=== PATIENT | female | born 1975 | race Caucasian/White ===

== ENCOUNTER 2016-06-24 21:23 | Emergency (ER) | payer MEDICAID, MEDICARE, OTHER ==
[~2016-06-24 21:23] MED LIST: MEDR4PAK3 PO; SYNT25TA PO; TRIA50 PO
[2016-06-24 21:25] VITALS: BP 167/94; PULSE 86; RESP 16; TEMP 98.2; O2SAT 100
[2016-06-25] MEDS ORDERED: oxyCODONE/ACETAMINOPHEN 5 MG/325 MG TAB PO ONE (00:45)
[2016-06-25] MEDS ORDERED: LIDOCAINE HCL 1% 50 ML VIAL INFIL ONE (00:45)
--- NOTE | 2016-06-25 01:11 | PD ---
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 She says it started two days ago. At first, she thought it was her ventral., Which she says is irregular and sometimes causes her pain, however then she noticed there was a lump there and thought that maybe she saw some drainage. She says she tried soaking in the bathtub, but this did not help. She denies any abdominal pain, nausea vomiting, fevers. PFSH Past Medical History High Cholesterol: Yes Diabetes: Yes Patient Takes Glucophage: No Diminished Hearing: No Gout: Yes Hypertension: Yes Thyroid Disease: Yes Tetanus Vaccination: > 5 Years Influenza Vaccination: No ?: Not LMP: 04--17 : 3 Para: 3 Miscarriage: 0 Social History Alcohol Use: No Tobacco Use: No Substance Use: No Allergies-Medications (Allergen,Severity, Reaction): Coded Allergies: No Known Allergies (Verified , 06/25/16) Reported Meds & Prescriptions Reported Meds & Active Scripts Active Clindamycin (Clindamycin HCl) 300 Mg Cap 600 Mg PO Q8H 7 Days Reported Meloxicam 15 Mg Tab 15 Mg PO DAILY Jardiance (Empagliflozin) 10 Mg Tab 10 Mg PO DAILY Triamterene-Hydrochlorothiazide 75-50 Mg Tab 1 Tab PO DAILY Rosuvastatin (Rosuvastatin Calcium) 10 Mg Tab 10 Mg PO HS Glipizide 5 Mg Tab 5 Mg PO BIDAC Take 30 minutes before a meal Prednisone 10 Mg Tab 10 Mg PO DAILY Bupropion HCl ER 24 HR (Bupropion HCl) 150 Mg Tab 150 Mg PO DAILY Losartan (Losartan Potassium) 25 Mg Tab 25 Mg PO DAILY Gabapentin 300 Mg Cap 300 Mg PO BID Synthroid (Levothyroxine Sodium) 25 Mcg Tab Unknown Dose PO DAILY Review of Systems Except as stated in HPI: all other systems reviewed are Neg General / Constitutional: No: Fever, Chills HENT: No: Headaches Cardiovascular: No: Chest Pain or Discomfort Respiratory: No: Shortness of Breath Gastrointestinal: No: Nausea, Vomiting, Abdominal Pain Genitourinary: Positive: Vaginal Bleeding, No: Dysuria Skin: No Rash, No Change in Pigmentation Physical Exam Narrative GENERAL: Awake and alert, in no acute distress. SKIN: Focused skin assessment warm/dry. HEAD: Atraumatic. Normocephalic. EYES: Pupils equal and round. No scleral icterus. ENT: No nasal bleeding or discharge. Mucous membranes pink and moist. NECK: Trachea midline. No JVD. CARDIOVASCULAR: Regular rate and rhythm. No murmur appreciated. RESPIRATORY: No accessory muscle use. Clear to auscultation. Breath sounds equal bilaterally. GASTROINTESTINAL: Abdomen soft, non-tender, nondistended. Hepatic and splenic margins not palpable. : 3cm fluctuant abscess on right posterior labial area, consistent with bartholin cyst. NEUROLOGICAL: Awake and alert. No obvious cranial nerve deficits. Motor grossly within normal limits. Normal speech. Data Data Last Documented VS Vital Signs Date Time Temp Pulse Resp B/P Pulse Ox O2 Delivery O2 Flow Rate FiO2 06/25/16 00:47 20 06/24/16 21:25 98.2 86 167/94 100 Room Air Orders Oxycodone-Acetamin 5-325 Mg (Percocet (06/25/16 00:45) Lidocaine 1% Inj (50 Ml) (Xylocaine 1% I (06/25/16 00:45) MDM Medical Decision Making Medical Screen Exam Complete: Yes Emergency Medical Condition: Yes Medical Record Reviewed: Yes Differential Diagnosis Bartholin's cyst versus abscess versus ingrown hair Narrative Course Patient is a 41-year-old female who comes in complaining of a pain and swelling to her vaginal area. Exam shows Bartholin Cyst. Incision and drainage performed, Word's catheter inserted. Patient advised to follow up with cell tuber machine. Discharged with prescription for clindamycin. Advised to return to the ED as needed for any worsening symptoms. Procedures Procedure Narrative INCISION AND DRAINAGE OF ABSCESS: The area was prepped and was sterilely draped. A subcutaneous wheal of 1 % Xylocaine with a total number 8 mL was used to anesthetize the area properly. A number 11 scalpel was used to make a 0.5 -cm incision across the area of the abscess. The abscess was drained, complex loculations were broken down, and irrigated with normal saline. Wards catheter was placed in the wound. Advised follow-up with [facility]. Diagnosis Primary Impression: Bartholin cyst Patient Instructions: Bartholin Cyst (ED), General Instructions Additional Instructions: Follow up with cell tuber machine. Take all of your antibiotic. Return to the ED as needed for any worsening symptoms. Scripts Clindamycin 300 Mg Aud121 Mg PO Q8H 7 Days Ref 0 Prov:Nette Baumann MD 06/25/16 Disposition: 01 DISCHARGE HOME Condition: Stable Nette Baumann MD June 25, 2016 01:11
[2016-06-25] MEDS ORDERED: PRED10 PO (01:44)
[2016-06-25] MEDS ORDERED: ROSU1TAB6 PO (01:44)
[2016-06-25] MEDS ORDERED: GLIP5TAB8 PO (01:44)
[2016-06-25] MEDS ORDERED: LOSA25TA PO (01:44)
[2016-06-25] MEDS ORDERED: TRIA1TAB5 PO (01:44)
[2016-06-25] MEDS ORDERED: EMPA1TAB PO (01:44)
[2016-06-25] MEDS ORDERED: BUPR150T3 PO (01:44)
[2016-06-25] MEDS ORDERED: GABA300C5 PO (01:44)
[2016-06-25] MEDS ORDERED: MELO-1 PO (01:44)
[2016-06-25] MEDS ORDERED: CLIN1CAP6 PO (02:12)
== END 2016-06-25 03:37 | disposition home or self-care (01) ==
LOC: NEPC 21:23
DX: N75.0 Cyst of Bartholin's gland (principal)
CPT/HCPCS: 10061

== ENCOUNTER 2017-05-04 00:05 | Emergency (ER) | payer MEDICARE, OTHER ==
[~2017-05-04] VITALS: Ht 162.6 cm; Wt 112.0 kg
[~2017-05-04 00:05] MED LIST changes: +BUPR150T3 PO; +CLIN300C5 PO; +EMPA1TAB PO; +GABA300C5 PO; +GLIP5TAB8 PO; +LOSA25TA PO; -MEDR4PAK3 PO; +MELO15TA20 PO; +PRED10 PO; +ROSU1TAB6 PO; +TRIA1TAB5 PO; -TRIA50 PO
[2017-05-04 00:32] VITALS: BP 109/60; PULSE 111; RESP 16; TEMP 97.8; O2SAT 98
[2017-05-05] MEDS ORDERED: INSULIN ASPART SUPPLEMENTAL SCALE ONE (15:35)
== END 2017-05-04 04:49 | disposition left against medical advice (07) ==
LOC: NED 00:05
DX: R11.10 Vomiting, unspecified (principal); Z53.21 Procedure and treatment not carried out due to patient leaving prior to being seen by health care provider
CPT/HCPCS: 99281; J1815

== ENCOUNTER 2017-05-04 13:26 | Inpatient (IN) | payer MEDICARE, OTHER ==
[~2017-05-04] VITALS: Ht 162.6 cm; Wt 121.1 kg
[2017-05-04 13:41] VITALS: BP 134/81; PULSE 116; RESP 18; TEMP 98.1; O2SAT 96
[2017-05-04] MEDS ORDERED: SODIUM CHLOR 0.9% 1000 ML INJ 1,000 ML IV SCH (13:49)
--- NOTE | 2017-05-04 13:55 | PD ---
HPI Chief Complaint: GI Complaint Time Seen by Provider: 13:41 Travel History International Travel<30 days: No Contact w/Intl Traveler<30days: No Traveled to known affect area: No History of Present Illness HPI 42 YO F with PMH of DM, HTN presents to the ED via EMS for evaluation of ~24 hour history of N/V and "black stools." Symptoms onset suddenly. She states that she has chest pain and abdominal pain that she relates to retching and vomiting. She endorses chills. She denies palpitations, shortness of breath, dysuria, back pain. She states that she's been unable to take her daily medications secondary to nausea and vomiting. She states that she was prescribed Clindamycin for a skin infection recently, but only took a few doses. She denies frequent NSAID or aspirin use. She denies drinking alcohol. She denies sick contacts. She's never had a colonoscopy or endoscopy. PFSH Past Medical History High Cholesterol: Yes Diabetes: Yes Patient Takes Glucophage: Yes Diminished Hearing: No Gout: Yes Hypertension: Yes Thyroid Disease: Yes ?: Unknown LMP: march 2017 : 3 Para: 3 Miscarriage: 0 Tubal Ligation: Yes Past Surgical History Surgical History: No Previous Surgery Social History Alcohol Use: No Tobacco Use: No Substance Use: No Allergies-Medications (Allergen,Severity, Reaction): Coded Allergies: No Known Allergies (Verified Allergy, Unknown, 05/04/17) Reported Meds & Prescriptions Reported Meds & Active Scripts Active Reported Triamterene-Hydrochlorothiazide 75-50 Mg Tab 1 Tab PO DAILY Rosuvastatin (Rosuvastatin Calcium) 10 Mg Tab 20 Mg PO HS Glipizide 5 Mg Tab 10 Mg PO BIDAC Take 30 minutes before a meal Prednisone 10 Mg Tab 10 Mg PO DAILY Losartan (Losartan Potassium) 25 Mg Tab 50 Mg PO DAILY Synthroid (Levothyroxine Sodium) 25 Mcg Tab 225 Mcg PO DAILY Review of Systems Except as stated in HPI: all other systems reviewed are Neg Physical Exam Narrative GENERAL: Well-nourished, well-developed obese white female in no acute distress. SKIN: Focused skin assessment warm/dry. Tender edema over the left lip. Diffuse psoriatic changes. HEAD: Normocephalic. EYES: No scleral icterus. No injection or drainage. NECK: Supple, trachea midline. No JVD or lymphadenopathy. CARDIOVASCULAR: Regular rate and rhythm without murmurs, gallops, or rubs. RESPIRATORY: Breath sounds equal bilaterally. No accessory muscle use. GASTROINTESTINAL: Abdomen soft, diffusely, mildly tender, nondistended. Menchaca sign negative. Active bowel sounds. RECTAL EXAM: No masses or tenderness, stool is melanotic. Guaiac positive. MUSCULOSKELETAL: No cyanosis, or edema. BACK: Nontender without obvious deformity. No CVA tenderness. Data Data Last Documented VS Vital Signs Date Time Temp Pulse Resp B/P (MAP) Pulse Ox O2 Delivery O2 Flow Rate FiO2 05/04/17 13:41 98.1 116 18 134/81 (98) 96 Orders Orders Complete Blood Count With Diff (05/04/17 13:49) Comprehensive Metabolic Panel (05/04/17 13:49) Lipase (05/04/17 13:49) Prothrombin Time / Inr (Pt) (05/04/17 13:49) Act Partial Throm Time (Ptt) (05/04/17 13:49) Urinalysis - C+S If Indicated (05/04/17 13:49) Iv Access Insert/Monitor (05/04/17 13:49) Ecg Monitoring (05/04/17 13:49) Oximetry (05/04/17 13:49) Ondansetron Inj (Zofran Inj) (05/04/17 14:00) Sodium Chlor 0.9% 1000 Ml Inj (Ns 1000 M (05/04/17 13:49) Sodium Chloride 0.9% Flush (Ns Flush) (05/04/17 14:00) Ed Urine Pregnancytest Poc (05/04/17 13:49) Type And Screen (05/04/17 14:04) Sodium Chloride 0.9... W/Pantoprazole In (05/04/17 14:04) Sodium Chloride 0.9... W/Pantoprazole In (05/04/17 14:04) Lactic Acid (05/04/17 15:49) Ct Abd/Pel W Iv Contrast(Rout) (05/04/17 15:49) Sodium Chlor 0.9% 1000 Ml Inj (Ns 1000 M (05/04/17 16:00) Vancomycin Inj (Vancomycin Inj) (05/04/17 16:00) Piperacil-Tazo 4.5 Gm Premix (Zosyn 4.5 (05/04/17 16:00) Insulin Human Regular Inj (Novolin R Inj (05/04/17 16:00) Consult Gastroenterology (05/04/17 ) Admit Order (Ed Use Only) (05/04/17 16:10) Admit To Inpatient (05/04/17 ) Inpatient Certification (05/04/17 ) Vital Signs (Adult) ROLANDO.Q4H (05/04/17 16:11) Scd Bilateral/Knee High ROLANDO.QSHIFT (05/04/17 16:11) Complete Blood Count With Diff (05/05/17 06:00) Basic Metabolic Panel (Bmp) (05/05/17 06:00) Insulin Aspart Supplemtl Scale (Novolog (05/04/17 17:00) Labs Laboratory Tests Test 05/04/17 14:05 05/04/17 16:00 White Blood Count 21.1 TH/MM3 Red Blood Count 3.76 MIL/MM3 Hemoglobin 11.2 GM/DL Hematocrit 33.9 % Mean Corpuscular Volume 90.3 FL Mean Corpuscular Hemoglobin 29.8 PG Mean Corpuscular Hemoglobin Concent 33.0 % Red Cell Distribution Width 16.7 % Platelet Count 191 TH/MM3 Mean Platelet Volume 10.8 FL Neutrophils (%) (Auto) 84.5 % Lymphocytes (%) (Auto) 9.4 % Monocytes (%) (Auto) 5.4 % Eosinophils (%) (Auto) 0.5 % Basophils (%) (Auto) 0.2 % Neutrophils # (Auto) 17.8 TH/MM3 Lymphocytes # (Auto) 2.0 TH/MM3 Monocytes # (Auto) 1.1 TH/MM3 Eosinophils # (Auto) 0.1 TH/MM3 Basophils # (Auto) 0.0 TH/MM3 CBC Comment DIFF FINAL Differential Comment Prothrombin Time 11.7 SEC Prothromb Time International Ratio 1.2 RATIO Activated Partial Thromboplast Time 18.4 SEC Urine Color LIGHT-YELLOW Urine Turbidity CLEAR Urine pH 5.5 Urine Specific [place] 1.033 Urine Protein NEG mg/dL Urine Glucose (UA) 1000 mg/dL Urine Ketones 10 mg/dL Urine Occult Blood NEG Urine Nitrite NEG Urine Bilirubin NEG Urine Urobilinogen LESS THAN 2.0 MG/DL Urine Leukocyte Esterase NEG Urine RBC 1 /hpf Urine WBC 1 /hpf Urine Squamous Epithelial Cells <1 /hpf Microscopic Urinalysis Comment CULT NOT INDICATED Blood Urea Nitrogen 46 MG/DL Creatinine 1.33 MG/DL Random Glucose 527 MG/DL Total Protein 7.2 GM/DL Albumin 2.7 GM/DL Calcium Level 9.2 MG/DL Alkaline Phosphatase 76 U/L Aspartate Amino Transf (AST/SGOT) 69 U/L Alanine Aminotransferase (ALT/SGPT) 52 U/L Total Bilirubin 1.5 MG/DL Sodium Level 134 MEQ/L Potassium Level 4.8 MEQ/L Chloride Level 96 MEQ/L Carbon Dioxide Level 24.6 MEQ/L Anion Gap 13 MEQ/L Estimat Glomerular Filtration Rate 44 ML/MIN Lipase 237 U/L Lactic Acid Level 3.1 mmol/L [facility] Medical Decision Making Medical Screen Exam Complete: Yes Emergency Medical Condition: Yes Differential Diagnosis GI bleed versus anemia versus metabolic derangement versus infectious diarrhea versus diverticulitis versus other Narrative Course 42 YO F with PMH of DM, HTN presents to the ED via EMS for evaluation of ~24 hour history of N/V and "black stools." She endorses chills. Endorses chest and abdominal pain which she relates to retching and vomiting. She has been unable to take her daily medications 2/2 N/V. She denies frequent NSAID or aspirin use. She denies drinking alcohol. She denies sick contacts. She's never had a colonoscopy or endoscopy. Temp 98 1. Pulse 116, BP 134/81 on presentation. On exam this is an obese white female in no acute distress. There tender edema and erythema of the left side of the upper lip. There are psoriatic changes over the entire skin surface. Abdomen is soft, diffusely tender. No hepatosplenomegaly noted. Menchaca sign negative. Guaiac positive on rectal exam. IV was established. Patient was administered 4 mg morphine, 4 mg Zofran, 1 L normal saline. IV pantoprazole bolus and drip initiated. CBC: WBC 21.1. Neutrophil predominant. Hemoglobin 11.2. Patient's on chronic steroid suppression therapy for her psoriasis. INR: 1.1. BMP: BUN 46, creatinine 1.33. Glucose 527. LFTs: Bilirubin 1.5. AST 69, ALT 52. Lipase: 237 Lactic acid: 3.1. UA: No culture indicated. Patient was administered a second liter of normal saline. IV Zosyn and vancomycin was initiated. She was administered [address] abdomen ordered and pending. I discussed the results of the workup with the patient. She is agreeable to admission. GI consult was placed. I spoke with Dr. Krueger who agrees to accept the patient to the medicine service. Please see medicine notes for disposition. Sepsis Criteria SIRS Criteria (2 or more): Heart rate over 90, WBC > 01973, < 4000 or > 10% bands Severe Sepsis (+one): Lactate >2 Mayte Figueroa May 04, 2017 13:55
[2017-05-04] MEDS ORDERED: ONDANSETRON HCL 4 MG/2 ML VIAL IVP ONE (14:00)
[2017-05-04] MEDS ORDERED: SODIUM CHLORIDE 0.9% FLUSH 10 ML FLUSH IV FLUSH PRN (14:00)
[2017-05-04] MEDS ORDERED: PANTOPRAZOLE INJ 80 MG in SODIUM CHLORIDE 0.9% INJ 35 ML IV ONE (14:04)
[2017-05-04] MEDS: PANTOPRAZOLE INJ 80 MG in SODIUM CHLORIDE 0.9% INJ 100 ML IV SCH ×2 (14:15→14:54)
[2017-05-04 15:09] LABS: AUTOMATED NEUTROPHIL # 17.8 TH/MM3 (1.8-7.7); BASOPHIL % 0.2 % (0.0-2.0); EOSINOPHIL # 0.1 TH/MM3 (0-0.4); EOSINOPHIL % 0.5 % (0.0-4.0); HEMATOCRIT 33.9 % (35.0-46.0); HEMOGLOBIN 11.2 GM/DL (11.6-15.3); LYMPH % 9.4 % (9.0-44.0); MEAN CELL VOLUME 90.3 FL (80.0-100.0); MEAN CORPUSCULAR HEMOGLOBIN 29.8 PG (27.0-34.0); MEAN PLATELET VOLUME 10.8 FL (7.0-11.0); MONO % 5.4 % (0.0-8.0); MONOCYTE # 1.1 TH/MM3 (0-0.9); NEUT % 84.5 % (16.0-70.0); PLATELET COUNT 191 TH/MM3 (150-450); RED BLOOD COUNT 3.76 MIL/MM3 (4.00-5.30); RED CELL DISTRIBUTION WIDTH 16.7 % (11.6-17.2); WHITE BLOOD COUNT 21.1 TH/MM3 (4.0-11.0)
[2017-05-04 15:19] LABS: INTERNATIONAL NORMALIZED RATIO 1.2 RATIO; PROTHROMBIN TIME - PATIENT 11.7 SEC (9.8-11.6)
[2017-05-04 15:21] LABS: BILIRUBIN, URINE NEG (NEG); BLOOD, URINE NEG (NEG); GLUCOSE,URINE 1000 mg/dL (NEG); KETONE, URINE 10 mg/dL (NEG); NITRITE,URINE NEG (NEG); PH, URINE 5.5 (5.0-8.5); SQUAMOUS EPITHELIAL CELL URINE <1 /hpf (0-5); URINE COLOR LIGHT-YELLOW (YELLW/STRAW); URINE LEUKOCYTE ESTERASE NEG (NEG)
[2017-05-04 15:42] LABS: ALBUMIN 2.7 GM/DL (3.4-5.0); ALKALINE PHOSPHATASE 76 U/L (45-117); ALT (GPT) 52 U/L (10-53); AST (GOT) 69 U/L (15-37); BICARBONATE 24.6 MEQ/L (21.0-32.0); BLOOD UREA NITROGEN 46 MG/DL (7-18); CALCIUM 9.2 MG/DL (8.5-10.1); CHLORIDE 96 MEQ/L (98-107); CREATININE 1.33 MG/DL (0.50-1.00); GLOMERULAR FILTRATION RATE 44 ML/MIN (>89); SODIUM (NA) 134 MEQ/L (136-145); TOTAL BILIRUBIN ADULT 1.5 MG/DL (0.2-1.0); TOTAL PROTEIN 7.2 GM/DL (6.4-8.2)
[2017-05-04 15:57] LABS: GLUCOSE,RANDOM 527 MG/DL (74-106)
[2017-05-04] MEDS ORDERED: PIPERACIL-TAZO 4.5 GM PREMIX 100 ML IV ONE (16:00)
[2017-05-04] MEDS ORDERED: INSULIN HUMAN REGULAR 1,000 UNITS/10 ML VIAL IV PUSH ONE (16:00)
[2017-05-04] MEDS ORDERED: VANCOMYCIN INJ 1,000 MG in SODIUM CHLOR 0.9% 250 ML INJ 250 ML IV ONE (16:00)
[2017-05-04] MEDS ORDERED: SODIUM CHLOR 0.9% 1000 ML INJ 1,000 ML IV ONE (16:00)
--- NOTE | 2017-05-04 16:18 | HHI.HP ---
HPI Service [facility] Hospitalists Primary Care Physician Erinn Pride M.D. Admission Diagnosis GI bleed, leukocytosis, hyperglycemia, MARIA DEL ROSARIO Chief Complaint: N/V, melena Travel History International Travel<30 Days: No Contact w/Intl Traveler <30 Da: No Traveled to Known Affected Are: No History of Present Illness Mrs. Kramer is a pleasant 42 y/o WF with Diabetes mellitus, HTN, hyperlipidemia and hypothyroidism. She presented to the ED at [facility] on 05/04/17 with complaints of N/V and black tarry stools for the last few days. She reported that she has been unable to keep much of any food or fluids down for the last few days. She has had subjective fevers and chills. She has some mid to upper abdominal "soreness" which she relates to retching for the last few days. Her last episode of vomiting was this morning prior to coming to the ED and she states that it was dark red. Denies any previous similar episodes. She denies any alcohol or tobacco. Pt takes Prednisone 10mg po daily for RA and last took it . She also noted that she had been on Meloxicam 15mg once daily for her RA which was started about one month which she stopped about 1 week ago. She was seen at [facility] on 04/29/17 with a possible allergic reaction to something (not sure what it was) and had swelling on the left side of her lip/ face and was prescribed a prednisone taper and was also prescribed Keflex and Naprosyn on 04/29/17 for possible cellulitis and states that she took the Naprosyn until the N/V started. She was noted to be guaiac positive in the ED. She denies any reflux, dysphagia, constipation, diarrhea, chest pain, SOB, palpitations, dizziness or weakness. Review of Systems Constitutional: DENIES: Fever, Chills Eyes: DENIES: Vision loss Ears, nose, mouth, throat: DENIES: Hearing loss Respiratory: DENIES: Apneas, Shortness of breath Cardiovascular: DENIES: Chest pain, Palpitations, Dyspnea on Exertion, Lower Extremity Edema Gastrointestinal: COMPLAINS OF: Abdominal pain, Black stools, Nausea, Vomiting , DENIES: Diarrhea, GERD, Reflux, Difficulty Swallowing Genitourinary: DENIES: Urinary frequency, Urgency, Dysuria Musculoskeletal: DENIES: Back pain, Neck pain Integumentary: DENIES: Rash Neurologic: DENIES: Headache Psychiatric: DENIES: Confusion Past Family Social History Past Medical History Diabetes mellitus, type 2 HTN Hyperlipidemia Hypothyroidism Rheumatoid arthritis per the pt Psoriasis Past Surgical History Tubal ligation Reported Medications -Triamterene-Hydrochlorothiazide 75-50 Mg Tab PO DAILY -Glipizide 10 Mg PO BIDAC -Prednisone 10 Mg PO DAILY -Losartan 50 Mg PO DAILY -Synthroid 225 Mcg PO DAILY -Rosuvastatin 20 Mg PO HS Keflex 500Mg PO TID x 10 days, Naprosyn, and Prednisone taper (prescribed ) Allergies: Coded Allergies: No Known Allergies (Verified Allergy, Unknown, 05/04/17) Family History Mother with hx of brain tumor Father with hx of lung cancer related to asbestos per the pt Social History Denies any alcohol, tobacco or illicit drug use Physical Exam Vital Signs Vital Signs Date Time Temp Pulse Resp B/P (MAP) Pulse Ox O2 Delivery O2 Flow Rate FiO2 05/04/17 13:41 98.1 116 18 134/81 (98) 96 Physical Exam GENERAL: This is a well-nourished, well-developed patient, in no apparent distress. SKIN: Psoriatic skin changes on extremities HEENT: Atraumatic. Normocephalic. No temporal or scalp tenderness. No scleral icterus. Airway patent. NECK: Trachea midline, supple, nontender. CARDIO: Regular, tachy. RESP: CTA bilaterally. No wheezes, rales, or rhonchi. ABD: +BS, soft,mild epigastric tenderness, nondistended. EXT: Extremities without clubbing, cyanosis, or edema. NEURO: Awake and alert. Motor and sensory grossly within normal limits. Normal speech. Laboratory Laboratory Tests Test 05/04/17 14:05 White Blood Count 21.1 Red Blood Count 3.76 Hemoglobin 11.2 Hematocrit 33.9 Mean Corpuscular Volume 90.3 Mean Corpuscular Hemoglobin 29.8 Mean Corpuscular Hemoglobin Concent 33.0 Red Cell Distribution Width 16.7 Platelet Count 191 Mean Platelet Volume 10.8 Neutrophils (%) (Auto) 84.5 Lymphocytes (%) (Auto) 9.4 Monocytes (%) (Auto) 5.4 Eosinophils (%) (Auto) 0.5 Basophils (%) (Auto) 0.2 Neutrophils # (Auto) 17.8 Lymphocytes # (Auto) 2.0 Monocytes # (Auto) 1.1 Eosinophils # (Auto) 0.1 Basophils # (Auto) 0.0 CBC Comment DIFF FINAL Differential Comment Prothrombin Time 11.7 Prothromb Time International Ratio 1.2 Activated Partial Thromboplast Time 18.4 Urine Color LIGHT-YELLOW Urine Turbidity CLEAR Urine pH 5.5 Urine Specific [place] 1.033 Urine Protein NEG Urine Glucose (UA) 1000 Urine Ketones 10 Urine Occult Blood NEG Urine Nitrite NEG Urine Bilirubin NEG Urine Urobilinogen LESS THAN 2.0 Urine Leukocyte Esterase NEG Urine RBC 1 Urine WBC 1 Urine Squamous Epithelial Cells <1 Microscopic Urinalysis Comment CULT NOT INDICATED Blood Urea Nitrogen 46 Creatinine 1.33 Random Glucose 527 Total Protein 7.2 Albumin 2.7 Calcium Level 9.2 Alkaline Phosphatase 76 Aspartate Amino Transf (AST/SGOT) 69 Alanine Aminotransferase (ALT/SGPT) 52 Total Bilirubin 1.5 Sodium Level 134 Potassium Level 4.8 Chloride Level 96 Carbon Dioxide Level 24.6 Anion Gap 13 Estimat Glomerular Filtration Rate 44 Lipase 237 Result Diagram: 05/04/17 1405 05/04/17 1405 Caprini VTE Risk Assessment Caprini VTE Risk Assessment: No/Low Risk (score <= 1) Caprini Risk Assessment Model Point Value = 1 Point Value = 2 Point Value = 3 Point Value = 5 Age 41-60 Minor surgery BMI > 25 kg/m2 Swollen legs Varicose veins or History of unexplained or recurrent spontaneous Oral contraceptives or hormone replacement Sepsis (< 1 month) Serious lung disease, including pneumonia (< 1 month) Abnormal pulmonary function Acute myocardial infarction Congestive heart failure (< 1 month) History of inflammatory bowel disease Medical patient at bed rest Age 61-74 Arthroscopic surgery Major open surgery (> 45 min) Laparoscopic surgery (> 45 min) Malignancy Confined to bed (> 72 hours) Immobilizing plaster cast Central venous access Age >= 75 History of VTE Family history of VTE Factor V Leiden Prothrombin [id number] Lupus anticoagulant Anticardiolipin antibodies Elevated serum homocysteine Heparin-induced thrombocytopenia Other congenital or acquired thrombophilia Stroke (< 1 month) Elective arthroplasty Hip, pelvis, or leg fracture Acute spinal cord injury (< 1 month) Prophylaxis Regimen Total Risk Factor Score Risk Level Prophylaxis Regimen 0-1 Low Early ambulation 2 Moderate Order ONE of the following: *Sequential Compression Device (SCD) *Heparin 5000 units SQ BID 3-4 Higher Order ONE of the following medications: *Heparin 5000 units SQ TID *Enoxaparin/Lovenox 40 mg SQ daily (WT < 150 kg, CrCl > 30 mL/min) *Enoxaparin/Lovenox 30 mg SQ daily (WT < 150 kg, CrCl > 10-29 mL/min) *Enoxaparin/Lovenox 30 mg SQ BID (WT < 150 kg, CrCl > 30 mL/min) AND/OR *Sequential Compression Device (SCD) 5 or more Highest Order ONE of the following medications: *Heparin 5000 units SQ TID (Preferred with Epidurals) *Enoxaparin/Lovenox 40 mg SQ daily (WT < 150 kg, CrCl > 30 mL/min) *Enoxaparin/Lovenox 30 mg SQ daily (WT < 150 kg, CrCl > 10-29 mL/min) *Enoxaparin/Lovenox 30 mg SQ BID (WT < 150 kg, CrCl > 30 mL/min) AND *Sequential Compression Device (SCD) Assessment and Plan Problem List: (1) GI bleed ICD Codes: K92.2 - Gastrointestinal hemorrhage, unspecified Status: Acute Plan: GIB/Hemoccult-positive stool Anemia Nausea/vomiting ?hematemesis - Pt is a 42 y/o WF with diabetes mellitus, HTN, hyperlipidemia and hypothyroidism. - She presented to the ED at [facility] on 05/04/17 with complaints of N/V and black tarry stools for the last few days. She reported that she has been unable to keep much of any food or fluids down for the last few days. She has some mid to upper abdominal "soreness" which she relates to retching for the last few days. Her last episode of vomiting was this morning prior to coming to the ED and she states that it was dark red. - Pt is chronically on Prednisone and was recently taking Meloxicam up until about a week ago and more recently had been taking Naprosyn. - She was noted to be guaiac positive in the ED - Labs in the ED noted Hgb 11.2/Hct 33.9 - Pt was started on Protonix gtt - GI consulted - NPO except meds - Monitor labs closely - Supportive care MARIA DEL ROSARIO Dehydration from poor PO intake - Labs at admission with Cr 1.33/BUN 46, GFR 44 - Pt was given IVF in the ED and she will be continued on IVF - Repeat labs in AM Leukocytosis - Likely reactive - Pt received IVF and Zosyn/Vancomycin in the ED we tomas hold on continuing Abx at this time - Repeat labs in AM Diabetes mellitus, type 2 - Hold OHA - BS at admission significantly elevated at 527 but she has been unable to tolerated po intake and hasn't taken her meds for the last few days - NovoLog SSI HTN - Hold home meds due to MARIA DEL ROSARIO - Clonidine PRN - Monitor Hyperlipidemia - Cont. home meds Hypothyroidism - Cont. home meds (2) MARIA DEL ROSARIO (acute kidney injury) ICD Codes: N17.9 - Acute kidney failure, unspecified Status: Acute (3) Dehydration ICD Codes: E86.0 - Dehydration Status: Acute (4) Nausea & vomiting ICD Codes: R11.2 - Nausea with vomiting, unspecified Status: Acute (5) Diabetes mellitus ICD Codes: E11.9 - Type 2 diabetes mellitus without complications Status: Chronic (6) HTN (hypertension) ICD Codes: I10 - Essential (primary) hypertension Status: Chronic (7) Hyperlipidemia ICD Codes: E78.5 - Hyperlipidemia, unspecified Status: Chronic (8) Hypothyroidism ICD Codes: E03.9 - Hypothyroidism, unspecified Status: Chronic Physician Certification 2 Midnight Certification Type: Admission for Inpatient Services Order for Inpatient Services The services are ordered in accordance with Medicare regulations or non- Medicare payer requirements, as applicable. In the case of services not specified as inpatient-only, they are appropriately provided as inpatient services in accordance with the 2-midnight benchmark. Estimated LOS (days): 2 2 days is the estimated time the patient will need to remain in the hospital, assuming treatment plan goals are met and no additional complications. Post-Hospital Plan: Home Problem Qualifiers (1) Diabetes mellitus: Rachel Pinto May 04, 2017 16:18
[2017-05-04] MEDS ORDERED: GLUCAGON 1 MG/ML VIAL OTHER PRN (16:45)
[2017-05-04] MEDS ORDERED: DEXTROSE 50% IN WATER 50 ML VIAL(D50) IV PUSH PRN (16:45)
[2017-05-04] MEDS ORDERED: ONDANSETRON HCL 4 MG/2 ML VIAL IV PUSH PRN (17:00)
[2017-05-04] MEDS ORDERED: cloNIDine HCL 0.1 MG TAB PO PRN (17:00)
[2017-05-04] MEDS: SODIUM CHLOR 0.9% 1000 ML INJ 1,000 ML IV SCH (17:09)
--- NOTE | 2017-05-04 17:18 | PD ---
Physical Exam Date Seen by Provider: May 04, 2017 Time Seen by Provider: 15:00 Narrative I, Dr. Rae, have reviewed the advance practice practitioner's documentation and am in agreement, met with the patient face to face, made the diagnosis, and the medical decision making was done by me. *My assessment and Findings: Patient seen and evaluated with PA, please see PA' s note for further details. She is here with nausea, vomiting, black stools. Has previous history of diabetes. On exam, has fairly nontender abdomen, mildly distended. The rest of the exam is fairly unremarkable. A rectal exam was done by PA, she is Hemoccult positive. Lab work was done and shows significant leukocytosis of uncertain etiology and concerning for possible underlying sepsis. Patient's lactate was also fairly elevated. She was initiated on IV fluids, IV antibiotics were initiated after cultures were done. Hemoglobin is stable. Her glucose levels were fairly elevated as well and insulin was given in the ER. At this point, plan would be to admit the patient for further evaluation of GI bleed, hyperglycemia, possible sepsis. Case is discussed with hospitalist service for admission. Laboratory Tests Test 05/04/17 14:05 05/04/17 16:00 White Blood Count 21.1 TH/MM3 (4.0-11.0) Red Blood Count 3.76 MIL/MM3 (4.00-5.30) Hemoglobin 11.2 GM/DL (11.6-15.3) Hematocrit 33.9 % (35.0-46.0) Neutrophils (%) (Auto) 84.5 % (16.0-70.0) Neutrophils # (Auto) 17.8 TH/MM3 (1.8-7.7) Monocytes # (Auto) 1.1 TH/MM3 (0-0.9) Prothrombin Time 11.7 SEC (9.8-11.6) Activated Partial Thromboplast Time 18.4 SEC (24.3-30.1) Urine Glucose (UA) 1000 mg/dL (NEG) Urine Ketones 10 mg/dL (NEG) Blood Urea Nitrogen 46 MG/DL (7-18) Creatinine 1.33 MG/DL (0.50-1.00) Random Glucose 527 MG/DL (74-106) Albumin 2.7 GM/DL (3.4-5.0) Aspartate Amino Transf (AST/SGOT) 69 U/L (15-37) Total Bilirubin 1.5 MG/DL (0.2-1.0) Sodium Level 134 MEQ/L (136-145) Chloride Level 96 MEQ/L (98-107) Estimat Glomerular Filtration Rate 44 ML/MIN (>89) Lactic Acid Level 3.1 mmol/L (0.4-2.0) Data Data Last Documented VS Vital Signs Date Time Temp Pulse Resp B/P (MAP) Pulse Ox O2 Delivery O2 Flow Rate FiO2 05/04/17 13:41 98.1 116 18 134/81 (98) 96 Orders Orders Complete Blood Count With Diff (05/04/17 13:49) Comprehensive Metabolic Panel (05/04/17 13:49) Lipase (05/04/17 13:49) Prothrombin Time / Inr (Pt) (05/04/17 13:49) Act Partial Throm Time (Ptt) (05/04/17 13:49) Urinalysis - C+S If Indicated (05/04/17 13:49) Iv Access Insert/Monitor (05/04/17 13:49) Ecg Monitoring (05/04/17 13:49) Oximetry (05/04/17 13:49) Ondansetron Inj (Zofran Inj) (05/04/17 14:00) Sodium Chlor 0.9% 1000 Ml Inj (Ns 1000 M (05/04/17 13:49) Sodium Chloride 0.9% Flush (Ns Flush) (05/04/17 14:00) Ed Urine Pregnancytest Poc (05/04/17 13:49) Type And Screen (05/04/17 14:04) Sodium Chloride 0.9... W/Pantoprazole In (05/04/17 14:04) Sodium Chloride 0.9... W/Pantoprazole In (05/04/17 14:04) Lactic Acid (05/04/17 15:49) Ct Abd/Pel W Iv Contrast(Rout) (05/04/17 15:49) Sodium Chlor 0.9% 1000 Ml Inj (Ns 1000 M (05/04/17 16:00) Vancomycin Inj (Vancomycin Inj) (05/04/17 16:00) Piperacil-Tazo 4.5 Gm Premix (Zosyn 4.5 (05/04/17 16:00) Insulin Human Regular Inj (Novolin R Inj (05/04/17 16:00) Consult Gastroenterology (05/04/17 ) Admit Order (Ed Use Only) (05/04/17 16:10) Admit To Inpatient (05/04/17 ) Inpatient Certification (05/04/17 ) Vital Signs (Adult) ROLANDO.Q4H (05/04/17 16:11) Scd Bilateral/Knee High ROLANDO.QSHIFT (05/04/17 16:11) Complete Blood Count With Diff (05/05/17 06:00) Basic Metabolic Panel (Bmp) (05/05/17 06:00) Insulin Aspart Supplemtl Scale (Novolog (05/04/17 17:00) Labs Laboratory Tests Test 05/04/17 14:05 05/04/17 16:00 White Blood Count 21.1 TH/MM3 Red Blood Count 3.76 MIL/MM3 Hemoglobin 11.2 GM/DL Hematocrit 33.9 % Mean Corpuscular Volume 90.3 FL Mean Corpuscular Hemoglobin 29.8 PG Mean Corpuscular Hemoglobin Concent 33.0 % Red Cell Distribution Width 16.7 % Platelet Count 191 TH/MM3 Mean Platelet Volume 10.8 FL Neutrophils (%) (Auto) 84.5 % Lymphocytes (%) (Auto) 9.4 % Monocytes (%) (Auto) 5.4 % Eosinophils (%) (Auto) 0.5 % Basophils (%) (Auto) 0.2 % Neutrophils # (Auto) 17.8 TH/MM3 Lymphocytes # (Auto) 2.0 TH/MM3 Monocytes # (Auto) 1.1 TH/MM3 Eosinophils # (Auto) 0.1 TH/MM3 Basophils # (Auto) 0.0 TH/MM3 CBC Comment DIFF FINAL Differential Comment Prothrombin Time 11.7 SEC Prothromb Time International Ratio 1.2 RATIO Activated Partial Thromboplast Time 18.4 SEC Urine Color LIGHT-YELLOW Urine Turbidity CLEAR Urine pH 5.5 Urine Specific [place] 1.033 Urine Protein NEG mg/dL Urine Glucose (UA) 1000 mg/dL Urine Ketones 10 mg/dL Urine Occult Blood NEG Urine Nitrite NEG Urine Bilirubin NEG Urine Urobilinogen LESS THAN 2.0 MG/DL Urine Leukocyte Esterase NEG Urine RBC 1 /hpf Urine WBC 1 /hpf Urine Squamous Epithelial Cells <1 /hpf Microscopic Urinalysis Comment CULT NOT INDICATED Blood Urea Nitrogen 46 MG/DL Creatinine 1.33 MG/DL Random Glucose 527 MG/DL Total Protein 7.2 GM/DL Albumin 2.7 GM/DL Calcium Level 9.2 MG/DL Alkaline Phosphatase 76 U/L Aspartate Amino Transf (AST/SGOT) 69 U/L Alanine Aminotransferase (ALT/SGPT) 52 U/L Total Bilirubin 1.5 MG/DL Sodium Level 134 MEQ/L Potassium Level 4.8 MEQ/L Chloride Level 96 MEQ/L Carbon Dioxide Level 24.6 MEQ/L Anion Gap 13 MEQ/L Estimat Glomerular Filtration Rate 44 ML/MIN Lipase 237 U/L Lactic Acid Level 3.1 mmol/L MDM Medical Record Reviewed: Yes Supervised Visit with NINO: Yes Diagnosis Primary Impression: GI bleed Additional Impressions: Diabetes mellitus Dehydration Leukocytosis Admitting Information Admitting Physician Requests: Admit Megan Rae MD May 04, 2017 17:18
[2017-05-04] MEDS ORDERED: IOHEXOL 350 MG/ML 10 ML VIAL (for RAD DIAG) IVCONTRAST ONE (17:29)
--- NOTE | 2017-05-04 17:35 | RADRPT ---
EXAM DATE/TIME: 05/04/2017 17:19 [facility] COMPARISON: No previous studies available for comparison. INDICATIONS : Nausea, vomiting, dark fluid like stool. IV CONTRAST: 80 cc Omnipaque 350 (iohexol) IV ORAL CONTRAST: No oral contrast ingested. RADIATION DOSE: 16.72 CTDIvol (mGy) MEDICAL HISTORY : Hypertension. Gout, psorisis,diabetes SURGICAL HISTORY : Tubal ligation. ENCOUNTER: Initial ACUITY: 1 day PAIN SCALE: 7/10 LOCATION: diffuse abdomen TECHNIQUE: Volumetric scanning of the abdomen and pelvis was performed. Using automated exposure control and ad justment of the mA and/or kV according to patient size, radiation dose was kept as low as reasonably achievable to obtain optimal diagnostic quality images. DICOM format image data is available electro nically for review and comparison. FINDINGS: Lower lungs are clear. The liver is unremarkable Calcified gallstones inflammatory changes around the gallbladder. There is induration around the hea d of the pancreas as well. Findings are suspicious for pancreatitis with or without acute cholecysti tis. Spleen is unremarkable Adrenals appear normal Symmetric renal function out mass Scattered diverticuli descending and sigmoid colon The pelvis there are cystic masses in right adnexal region. Mass measures 2.8 cm. There is no free fluid Review of bone windows reveals degenerative changes in the lumbar spine and both SI joints. CONCLUSION: Mobile gallstones with inflammatory changes around the gallbladder Induration around the pancreas Findings are suspicious for pancreatitis without acute cholecystitis. Joe Beaver MD FACR on May 04, 2017 at 17:28 Board Certified Radiologist. This report was verified electronically.
--- NOTE | 2017-05-04 19:02 | MB ---
cc: Vicki Bailey MD DATE: 05/04/2017 REFERRING PHYSICIAN: Damien Krueger MD REASON FOR CONSULTATION: GI bleed. HISTORY OF PRESENT ILLNESS: Ms. Kramer is a 42-year-old lady with multiple medical problems, came to the emergency room with complaints of nausea, vomiting and black tarry stool for the last few days. The patient stated that she was not able to keep too much fluid or food down for the last few days, did have some fever and chills. She complained of some upper abdominal discomfort. She describes it as a soreness, also some retching. The last episode of vomiting was in the morning and, according to her, was dark red. Never had this kind of issue before. Never had endoscopies, colonoscopies. Again, the patient is on multiple medications for rheumatoid arthritis. Recently, she was advised to discontinue her meloxicam and prednisone. Patient was seen earlier this week in urgent care for possible allergic reaction. She developed some swelling of her left lip and face. She was placed on antibiotics and naproxen. In the emergency room, she was heme positive. PAST MEDICAL HISTORY: Diabetes, hypertension, obesity, hyperlipidemia, hypothyroidism, rheumatoid arthritis, psoriasis. PAST SURGICAL HISTORY: Tubal ligation. MEDICATIONS AT HOME: Glipizide, prednisone, losartan, Synthroid, rosuvastatin, triamterene/hydrochlorothiazide, Keflex, naproxen and prednisone taper. ALLERGIES: NO KNOWN ALLERGIES. FAMILY HISTORY: Mother had brain tumor. Father had lung cancer. SOCIAL HISTORY: Denies any drug use or alcohol use. REVIEW OF SYSTEMS: GENERAL: She denies any current fever and chills, but she says she did have prior to her admission. ENT: No alteration of baseline hearing or visual activity. PULMONARY: Denies any chest pain, shortness of breath. GASTROINTESTINAL: As above. GENITOURINARY: Denies dysuria or hematuria. HEMATOLOGICAL: Denies a history of anemia or bleeding disorder. SKIN: No alteration in skin lesion. NEUROLOGIC: No history of TIA or CVA kind of symptoms. PHYSICAL EXAMINATION: GENERAL: She is sitting in bed in no acute distress, obese. VITAL SIGNS: Pulse 116, temperature 98.1, respirations 18, blood pressure 134/81, pulse oximetry 97. HEENT: PERRLA. NECK: No JVD. No lymphadenopathy. CHEST: Clear to auscultation and palpation. CARDIOVASCULAR: S1, S2. No murmur. ABDOMEN: Soft, obese. Bowel sounds are present. CENTRAL NERVOUS SYSTEM: Alert, oriented x 3. No focal signs identified. SKIN: She has psoriatic skin changes. EXTREMITIES: Her left side of her lip is swollen, red and slightly tender with a small erosion on it. The same on the left earlobe. LABORATORY DATA: Hemoglobin 11.2, white count 21.1, platelets 191. PT, INR normal. Her glucose is 527, BUN 46, creatinine 1.33, total bilirubin 1.5, AST 69, ALT 52, albumin 2.7. The patient had a CT abdomen and pelvis, which showed mobile gallstones with inflammatory changes around the gallbladder, induration around the pancreas, findings suspicious for pancreatitis and possible cholecystitis. IMPRESSION: Ms. Kramer is a very pleasant 42-year-old lady with multiple medical problems, admitted with hematemesis and melena and recent use of nonsteroidal anti-inflammatory drugs and prednisone, most likely gastritis or peptic ulcer disease. Abdominal discomfort, abnormal CT suggesting mild pancreatitis, abnormal gallbladder, possible cholecystitis. Elevation of the liver enzymes most likely secondary to mild pancreatitis and cholecystitis. RECOMMENDATION: Upper endoscopy will be scheduled in the morning. Continue Protonix and Carafate. Zofran p.r.n. for nausea and vomiting. Monitor Hb/hct closely. Repeat LFTs and lipase in the morning. General surgery consultation. Better control of glucose. Further recommendation will depend on the patient's clinical status and the above results. Will continue antibiotics for now. Vicki Bailey MD BSB/SB , 06:33 PM , 07:00 PM MTDNatalie
[2017-05-04 20:00] VITALS: BP 101/55; PULSE 96; RESP 18; TEMP 98.5; O2SAT 100
[2017-05-04] MEDS: ATORVASTATIN 40 MG TAB PO SCH (21:56)
[2017-05-04] MEDS ORDERED: CHLORHEXIDINE GLUCONATE 2 % 1 PACK (2 CLOTHS) TOPICAL PRN (22:30)
[2017-05-04] MEDS ORDERED: POVIDONE IODINE 5% (ANTISEPSIS KIT) 4 APPLICATIONS EACH NARE PRN (22:30)
[2017-05-04] MEDS ORDERED: SODIUM CHLORID 0.9% 500 ML IV PRN (22:30)
[2017-05-04] MEDS ORDERED: LACTATED RINGER'S 1000 ML IV PRN (22:30)
[2017-05-05] VITALS (10 sets, daily range): BP systolic 108–138; BP diastolic 59–69; PULSE 76–97; RESP 17–20; TEMP 97.6–98.5; O2SAT 97–100
[2017-05-05] MEDS: PANTOPRAZOLE INJ 80 MG in SODIUM CHLORIDE 0.9% INJ 100 ML IV SCH ×2 (01:20→18:28)
[2017-05-05] MEDS ORDERED: INSULIN ASPART 1,000 UNITS/10 ML VIAL SQ ONE (01:30)
[2017-05-05 01:57] LABS: BASOPHIL % 0.3 % (0.0-2.0); EOSINOPHIL # 0.2 TH/MM3 (0-0.4); EOSINOPHIL % 1.5 % (0.0-4.0); HEMATOCRIT 25.8 % (35.0-46.0); HEMOGLOBIN 8.9 GM/DL (11.6-15.3); LYMPH % 11.6 % (9.0-44.0); LYMPHOCYTE # 1.7 TH/MM3 (1.0-4.8); MEAN CELL VOLUME 89.1 FL (80.0-100.0); MEAN CORPUSCULAR HEMOGLOBIN 30.6 PG (27.0-34.0); MEAN CORPUSCULAR HGB CONC 34.3 % (32.0-36.0); MEAN PLATELET VOLUME 9.9 FL (7.0-11.0); MONO % 5.8 % (0.0-8.0); MONOCYTE # 0.9 TH/MM3 (0-0.9); NEUT % 80.8 % (16.0-70.0); PLATELET COUNT 125 TH/MM3 (150-450); RED CELL DISTRIBUTION WIDTH 16.6 % (11.6-17.2); WHITE BLOOD COUNT 14.9 TH/MM3 (4.0-11.0)
[2017-05-05 02:06] LABS: CALCIUM 8.4 MG/DL (8.5-10.1); CREATININE 1.19 MG/DL (0.50-1.00)
[2017-05-05] MEDS: LEVOTHYROXINE SODIUM 200 MCG TAB PO SCH (06:04)
[2017-05-05] MEDS: LEVOTHYROXINE SODIUM 25 MCG TAB PO SCH (06:04)
[2017-05-05] MEDS: INSULIN ASPART SUPPLEMENTAL SCALE SQ SCH ×5 (08:00→23:17)
--- NOTE | 2017-05-05 08:47 | HHI.PR ---
Subjective Remarks Pt reports that she had two black tarry stools last night. She still has some abdominal discomfort No nausea or vomiting Objective Vitals Vital Signs Date Time Temp Pulse Resp B/P (MAP) Pulse Ox O2 Delivery O2 Flow Rate FiO2 05/05/17 00:00 97.6 90 18 124/66 (85) 99 05/04/17 20:00 98.5 96 18 101/55 (70) 100 05/04/17 13:41 98.1 116 18 134/81 (98) 96 Result Diagram: 05/05/17 0142 05/05/17 0142 Other Results Laboratory Tests Test 05/04/17 14:05 05/04/17 16:00 05/05/17 01:42 White Blood Count 21.1 TH/MM3 14.9 TH/MM3 Red Blood Count 3.76 MIL/MM3 2.90 MIL/MM3 Hemoglobin 11.2 GM/DL 8.9 GM/DL Hematocrit 33.9 % 25.8 % Mean Corpuscular Volume 90.3 FL 89.1 FL Mean Corpuscular Hemoglobin 29.8 PG 30.6 PG Mean Corpuscular Hemoglobin Concent 33.0 % 34.3 % Red Cell Distribution Width 16.7 % 16.6 % Platelet Count 191 TH/MM3 125 TH/MM3 Mean Platelet Volume 10.8 FL 9.9 FL Neutrophils (%) (Auto) 84.5 % 80.8 % Lymphocytes (%) (Auto) 9.4 % 11.6 % Monocytes (%) (Auto) 5.4 % 5.8 % Eosinophils (%) (Auto) 0.5 % 1.5 % Basophils (%) (Auto) 0.2 % 0.3 % Neutrophils # (Auto) 17.8 TH/MM3 12.0 TH/MM3 Lymphocytes # (Auto) 2.0 TH/MM3 1.7 TH/MM3 Monocytes # (Auto) 1.1 TH/MM3 0.9 TH/MM3 Eosinophils # (Auto) 0.1 TH/MM3 0.2 TH/MM3 Basophils # (Auto) 0.0 TH/MM3 0.0 TH/MM3 CBC Comment DIFF FINAL AUTO DIFF Differential Comment AUTO DIFF CONFIRMED Prothrombin Time 11.7 SEC Prothromb Time International Ratio 1.2 RATIO Activated Partial Thromboplast Time 18.4 SEC Urine Color LIGHT-YELLOW Urine Turbidity CLEAR Urine pH 5.5 Urine Specific [place] 1.033 Urine Protein NEG mg/dL Urine Glucose (UA) 1000 mg/dL Urine Ketones 10 mg/dL Urine Occult Blood NEG Urine Nitrite NEG Urine Bilirubin NEG Urine Urobilinogen LESS THAN 2.0 MG/DL Urine Leukocyte Esterase NEG Urine RBC 1 /hpf Urine WBC 1 /hpf Urine Squamous Epithelial Cells <1 /hpf Microscopic Urinalysis Comment CULT NOT INDICATED Blood Urea Nitrogen 46 MG/DL 30 MG/DL Creatinine 1.33 MG/DL 1.19 MG/DL Random Glucose 527 MG/DL 399 MG/DL Total Protein 7.2 GM/DL Albumin 2.7 GM/DL Calcium Level 9.2 MG/DL 8.4 MG/DL Alkaline Phosphatase 76 U/L Aspartate Amino Transf (AST/SGOT) 69 U/L Alanine Aminotransferase (ALT/SGPT) 52 U/L Total Bilirubin 1.5 MG/DL Sodium Level 134 MEQ/L 138 MEQ/L Potassium Level 4.8 MEQ/L 3.8 MEQ/L Chloride Level 96 MEQ/L 101 MEQ/L Carbon Dioxide Level 24.6 MEQ/L 29.0 MEQ/L Anion Gap 13 MEQ/L 8 MEQ/L Estimat Glomerular Filtration Rate 44 ML/MIN 50 ML/MIN Lipase 237 U/L Lactic Acid Level 3.1 mmol/L Imaging CT Abd/pelvis with IV Contrast (05/04/17): - Mobile gallstones with inflammatory changes around the gallbladder - Induration around the pancreas - Findings are suspicious for pancreatitis with or without acute cholecystitis Objective Remarks General: NAD, AAOx3 Chest: CTA Cardiac: Regular Abd: +BS, soft, obese, nondistended, upper abdominal tenderness, mostly RUQ Ext: No edema A/P Problem List: (1) GI bleed ICD Codes: K92.2 - Gastrointestinal hemorrhage, unspecified Status: Acute Plan: GIB/Hemoccult-positive stool Anemia Nausea/vomiting ?hematemesis - Pt is a 42 y/o WF with diabetes mellitus, HTN, hyperlipidemia and hypothyroidism. - She presented to the ED at [facility] [place] on 05/04/17 with complaints of N/V and black tarry stools for the last few days. She reported that she has been unable to keep much of any food or fluids down for the last few days. She has some mid to upper abdominal "soreness" which she relates to retching for the last few days. Her last episode of vomiting was this morning prior to coming to the ED and she states that it was dark red. - Pt is chronically on Prednisone and was recently taking Meloxicam up until about a week ago and more recently had been taking Naprosyn. - She was noted to be guaiac positive in the ED - Labs in the ED noted Hgb 11.2/Hct 33.9 - Pt was started on Protonix gtt - GI following and pt planned for EGD today - Repeat H/H on 05/05 with decrease in Hgb to 8.9 - NPO except meds - Type and cross done already - Monitor labs closely - Transfuse as necessary - Supportive care ADDENDUM (05/05): - Pt had EGD today, which noted erosive gastritis in the antrum and she was noted to have a large bulging of unclear significance with what looks like an ulceration which began to bleed during the procedure and it was felt that this was a gastric varix. The pt had about 1000mL of blood loss and Dr. Rodriguez was unable to apply a clip or inject or do any therapy during the procedure. - Pt was intubated and a second IV was opened and she was started with a 2 unit of packed RBC transfusion - Pt was sent to IR for embolization and pt was planned for transfer to ICU per GI documentation the case was discussed with Dr. Ortiz - Patient was started octreotide and pantoprazole drip MARIA [place] ROS[place]IO Dehydration from poor PO intake - Labs at admission with Cr 1.33/BUN 46, GFR 44 - Improving on IVF - Repeat labs (05/04) --> Cr 1.19, BUN 30, GFR 50 Leukocytosis - Likely reactive, pt has been afebrile since admission - Pt received IVF and Zosyn/Vancomycin in the ED we will hold on continuing Abx at this time - Repeat labs this morning with WBC count decreased to 14.9 on 05/05 - Await GB US results Abdominal pain Abnormal CT indicating possible pancreatitis +/- acute cholecystitis - CT Abd/pelvis with IV Contrast (05/04/17) --> Mobile gallstones with inflammatory changes around the gallbladder, Induration around the pancreas, and findings are suspicious for pancreatitis with or without acute cholecystitis - GB US performed this morning, await results - Lipase at admission was WNL at 237 - Repeat LFTs and Lipase in AM Diabetes mellitus, type 2 - Hold OHA - BS at admission significantly elevated at 527 but she has been unable to tolerated po intake and hasn't taken her meds for the last few days - NovoLog SSI HTN - Hold home meds due to MARIA [place] ROSARIO - BP stable - Clonidine PRN - Monitor Hyperlipidemia - Cont. home meds Hypothyroidism - Cont. home meds (2) MARIA DEL ROSARIO (acute kidney injury) ICD Codes: N17.9 - Acute kidney failure, unspecified Status: Acute (3) Dehydration ICD Codes: E86.0 - Dehydration Status: Acute (4) Nausea & vomiting ICD Codes: R11.2 - Nausea with vomiting, unspecified Status: Acute (5) Diabetes mellitus ICD Codes: E11.9 - Type 2 diabetes mellitus without complications Status: Chronic (6) HTN (hypertension) ICD Codes: I10 - Essential (primary) hypertension Status: Chronic (7) Hyperlipidemia ICD Codes: E78.5 - Hyperlipidemia, unspecified Status: Chronic (8) Hypothyroidism ICD Codes: E03.9 - Hypothyroidism, unspecified Status: Chronic Assessment and Plan Patient examined. Assessment and plan formulated with Rachel Pinto PA-C. I agree with the above. Problem Qualifiers (1) Diabetes mellitus: Rachel Pinto May 05, 2017 08:47 Bladimir Salguero DO May 05, 2017 23:26
[2017-05-05] MEDS ORDERED: LEVOTHYROXINE SODIUM 25 MCG TAB PO SCH (09:00)
--- NOTE | 2017-05-05 09:26 | RADRPT ---
EXAM DATE/TIME: 05/05/2017 09:01 [facility] COMPARISON: No previous studies available for comparison. INDICATIONS : Right upper quadrant pain. MEDICAL HISTORY : Hypercholesterolemia. Hypertension. Thyroid disease. Nausea. Vomiting. SURGICAL HISTORY : Tubal ligation. ENCOUNTER: Initial ACUITY: 2 days PAIN SCORE: 3/10 LOCATION: Right upper quadrant MEASUREMENTS: LIVER: 15.9 cm length COMMON DUCT: 7 mm RIGHT KIDNEY: 12.0 x 7.1 x 5.3 cm FINDINGS: LIVER: Normal echotexture without focal lesion or ductal dilatation. COMMON DUCT: No intraluminal mass or stone visualized. GALLBLADDER: Filled with stones and sludge. Mild wall thickening. Mild pericholecystic edema. PANCREAS: The visualized portions are within normal limits. RIGHT KIDNEY: No evidence of hydronephrosis, stone, or mass. CONCLUSION: Abnormal gallbladder appearance with stones sludge and wall thickening Donnell Zuluaga MD on May 05, 2017 at 9:22 Board Certified Radiologist. This report was verified electronically.
[2017-05-05] MEDS: SODIUM CHLOR 0.9% 1000 ML INJ 1,000 ML IV SCH ×3 (11:20→18:58)
[2017-05-05] MEDS ORDERED: LACTATED RINGER'S 1000 ML INJ 2,000 ML IV ONE (12:00)
[2017-05-05] MEDS ORDERED: SUCCINYLCHOLINE CHLORIDE 200 MG/10 ML VIAL IV ONE (12:00)
[2017-05-05] MEDS ORDERED: ONDANSETRON HCL 4 MG/2 ML VIAL IV ONE (12:00)
[2017-05-05] MEDS ORDERED: ROCURONIUM INJ 50 MG/5 ML SYRINGE IV PUSH ONE (12:00)
[2017-05-05] MEDS ORDERED: ALCOHOL, DEHYDRATED (ABSOLUTE) 5 ML VIAL OTHER ONE (12:00)
[2017-05-05] MEDS ORDERED: PROPOFOL 200 MG/20 ML AMP IV ONE (12:00)
[2017-05-05] MEDS ORDERED: LIDOCAINE HCL 1% PF 5 ML SYRINGE OTHER ONE (12:00)
[2017-05-05] MEDS ORDERED: PHENYLEPH/NS 1000 MCG/10 ML SYR IV ONE (12:00)
[2017-05-05] MEDS ORDERED: fentaNYL CITRATE 250 MCG/5 ML AMP ONE (12:13)
[2017-05-05] MEDS ORDERED: MIDAZOLAM HCL 5 MG/5 ML VIAL ONE (12:13)
--- NOTE | 2017-05-05 12:24 | PD.PROCEDR ---
GI Procedure PROCEDURE PERFORMED EGD with biopsy INDICATION FOR PROCEDURE Hematemesis PROCEDURE: The procedure, risks and benefits were discussed with Ms. Kramer and informed consent was obtained. Anesthesia sedated her with Diprivan. She was placed in the left lateral decubitus position. EGD: The Pentax videoscope was introduced through the oropharynx and advanced to the second portion of the duodenum under direct visualization. Retroflexion was performed in the stomach. FINDINGS: The esophagus this was unremarkable and within normal limits The stomach the patient had erosive gastritis in the antrum this was biopsied. On retroflexion she was found to have a large bulging of unclear significance with what looks like an ulceration as I try to touch the ulceration the patient began to bleed and so this was obviously a gastric varix the patient flooded her stomach and I was unable to apply a clip or inject or do any therapy about 1000 cc of blood were suctioned from her stomach the patient was then intubated a second IV was opened blood was called into the room and she was started with a 2 unit of packed RBC transfusion The duodenum was normal ESTIMATED BLOOD LOSS: More than 1000 cc of blood was lost SPECIMENS REMOVED: Antral biopsies COMPLICATIONS: None IMPRESSION: Gastric varices Erosive gastritis PLAN: Await biopsies The patient will go down to interventional radiology for embolization The patient will go to the ICU case was discussed with Dr. Ortiz Patient was stabilized with fluids and blood transfusions Patient will start octreotide Patient will start pantoprazole drip Probable repeat endoscopy in a few days Patient to remain intubated today until she is deemed to be stable Shane Rodriguez MD May 05, 2017 12:24
[2017-05-05] MEDS: SODIUM CHLORIDE 0.9% FLUSH 10 ML FLUSH IV FLUSH SCH (12:30)
[2017-05-05] MEDS ORDERED: SODIUM CHLORIDE 0.9% FLUSH 10 ML FLUSH IV FLUSH PRN (12:30)
[2017-05-05] MEDS ORDERED: PANTOPRAZOLE SODIUM 40 MG VIAL IV PUSH SCH (12:30)
[2017-05-05] MEDS ORDERED: OCTREOTIDE INJ 50 MCG/ML AMP IV PUSH ONE (14:00)
[2017-05-05] MEDS ORDERED: PROPOFOL 1000 MG/100 ML INJ 100 ML ONE (14:56)
[2017-05-05] MEDS: PROPOFOL 1000 MG/100 ML IV PRN ×3 (15:00→22:24)
[2017-05-05] MEDS ORDERED: DO NOT ADM ANY ANTICOAGULANT DRUGS PRN (15:05)
[2017-05-05] MEDS ORDERED: MIDAZOLAM HCL 2 MG/2 ML VIAL ONE (15:13)
[2017-05-05] MEDS ORDERED: IODIXANOL 320 MG/ML 50 ML VIAL (for RAD SPEC) I-ARTERIAL ONE (15:17)
[2017-05-05] MEDS ORDERED: *morphine SULFATE 4 MG/ML PERIprocedure ONLY ONE (15:24)
--- NOTE | 2017-05-05 15:25 | RADRPT ---
EXAM DATE/TIME: 05/05/2017 15:07 [facility] COMPARISON: No previous studies available for comparison. INDICATIONS : Post ET tube placement. MEDICAL HISTORY : Hypercholesterolemia. Hypertension. Thyroid disease. Nausea. Vomiting SURGICAL HISTORY : Tubal ligation. ENCOUNTER: Initial ACUITY: 1 day PAIN SCORE: Non-responsive. LOCATION: Bilateral chest FINDINGS: Endotracheal tube tip is directed just into the right mainstem bronchus. Retraction by a couple of ce ntimeters would be optimal. There is consolidative change in the left lung base with small associated effusion. Slight streaky perihilar parenchymal opacity on the right. Cardiac contours are grossly sa tisfactory for technique and diminished aeration. CONCLUSION: Endotracheal tube tip into the right mainstem bronchus. Retraction by couple of centimeters would be optimal. Bilateral infiltrates, left worse than right Donnell Zuluaga MD on May 05, 2017 at 15:21 Board Certified Radiologist. This report was verified electronically.
--- NOTE | 2017-05-05 15:45 | PD.RAD ---
Post Procedure Progress Note Pre Procedure Diagnosis: (1) GI bleed Post Procedure Diagnosis: (1) GI bleed Procedure Date: May 05, 2017 Supervising Radiologist: John Hartley JR Proceduralist/Assist: Isaiah Wilcox RT(R), RT Pradip(R) Anesthesia: Other Plan of Activity Patient to Unit: PACU Patient Condition: Good Additional Comments: Large varices around GE junction which drain largely via the left renal vein. Successful embolization via a right groin access. See PACS Report for procedural detail/treatment Jr. Naeem,John Jackson MD May 05, 2017 15:45
--- NOTE | 2017-05-05 16:28 | RADRPT ---
EXAM DATE/TIME: 05/05/2017 12:18 [facility] COMPARISON: CT ABDOMEN & PELVIS W CONTRAST, May 04, 2017, 17:19. INDICATIONS : Patient presents with gastrointestinal bleed in need of venogram and mechanical emobolization of GE junction varices. Patient continues to bleed despite endoscopic attempts. Medically necessary consent was obtained by Dr. Rodriguez. . MEDICAL HISTORY : Diabetes mellitus, type 2 HTN Hyperlipidemia Hypothyroidism Rheumatoid arthritis per the pt Psoriasis SURGICAL HISTORY : Tubal ligation ENCOUNTER: Initial ACUITY: 1 day PAIN SCORE: 0/10 LOCATION: N/A FLUORO TIME: 50.2 minutes IMAGE SERIES: 20 ACCESS SITE: Right Femoral vein CONTRAST: 1.) 130 cc Visipaque (iodixanol) DEVICE(S): 1.) GE junction varices>> embolic coil(s) tornado 6/3 2.) GE junction varices>> embolic coil(s) tornado 8/5 (x5) 3.) GE junction varices>> embolic coil(s) tornado 10/5 (x5) Anesthesia and pain control was provided by the Anesthesia department. PROCEDURE : 1. Ultrasound-guided puncture of the right femoral vein. 2. sedation provided by the anesthesiology department with continuous EKG and Oximetry monitoring. 3. venography of the left renal vein. 4. venography of the gastrorenal shunt 5. coil embolization of the gastrorenal shunt and varicosities An emergent consent was performed by . I reached out via telephone to the patient's daught er but she did not answered. I left a message requesting her to call the interventional department. S he did not return the call. Hand hygiene and 2% chlorhexidine and/or betadine/alcohol prep was utiliz ed per protocol for cutaneous antisepsis. Sterile gel and sterile probe cover were utilized for ultr asound guidance. The skin and subcutaneous tissues were infiltrated with local anesthetic solution. With ultrasound and fluoroscopic guidance the right femoral vein was punctured and a vascular sheath was placed. Venography of the left renal vein was performed and correlated to the recent CT scan. Selection of th e individual branches of the left renal vein within its proximal aspect identified the gastrorenal sh unt. This was selected and venogram confirms a large varicosities centered at the GE junction and nidia ng the lesser curvature of the stomach. No active bleeding was identified. Coil embolization was perf ormed as far cephalad within the varicosities as well as at the confluence of the left renal vein. The puncture site was closed with manual pressure and hemostasis was obtained. The patient tolerated the procedure well and there were no complications. Anesthesia was present during the procedure. See their report separately. CONCLUSION: The patient has large varicosities centered at the GE junction and along the lesser curvature of the stomach which drained via a gastrorenal shunt. Successful coil embolization was performed. John Hartley Jr., MD on May 05, 2017 at 16:08 Board Certified Radiologist. This report was verified electronically.
[2017-05-05] MEDS ORDERED: RASS Change Order XX ONE ×2 (16:30→18:00)
--- NOTE | 2017-05-05 17:44 | PD.CONS ---
HPI Service Critical Care Medicine Consult Requested By Dr Rodriguez Reason for Consult UGI bleed, acute respiratory failure on mechanical ventilation Primary Care Physician Erinn Pride M.D. History of Present Illness Mrs. Kramer is a pleasant 42 y/o WF with Diabetes mellitus, HTN, hyperlipidemia and hypothyroidism. She presented to the ED at [facility] on 05/04/17 with complaints of N/V and black tarry stools for the last few days. She reported that she has been unable to keep much of any food or fluids down for the last few days. She has had subjective fevers and chills. She has some mid to upper abdominal "soreness" which she relates to retching for the last few days. Her last episode of vomiting was this morning prior to coming to the ED and she states that it was dark red. Denies any previous similar episodes. She denies any alcohol or tobacco. Pt takes Prednisone 10mg po daily for RA and last took it . She also noted that she had been on Meloxicam 15mg once daily for her RA which was started about one month which she stopped about 1 week ago. She was seen at [facility] on 04/29/17 with a possible allergic reaction to something (not sure what it was) and had swelling on the left side of her lip/ face and was prescribed a prednisone taper and was also prescribed Keflex and Naprosyn on 04/29/17 for possible cellulitis and states that she took the Naprosyn until the N/V started. She was noted to be guaiac positive in the ED. She denies any reflux, dysphagia, constipation, diarrhea, chest pain, SOB, palpitations, dizziness or weakness. Patient was evaluated by GI and underwent EGD on 05/05. During EGD patient was noted to have significant active bleeding from a gastric varix with 1 L of blood loss. She was intubated during EGD and subsequently taken to IR where she underwent successful embolization of a bleeding gastric varix. She did get 2 units PRBCs transfused. Following procedure patient was transferred to PACU and then to [facility]. Critical care consult was requested by Dr. Rodriguez from GI as patient was kept intubated on mechanical ventilation. When I evaluated the patient in the ICU following her arrival, she was sedated with propofol, orally intubated on mechanical ventilation. History was obtained by reviewing records and discussion with nursing staff and Dr. Rodriguez. Review of Systems Unobtainable as patient is sedated, orally intubated on mechanical ventilation Past Family Social History Past Medical History Diabetes mellitus, type 2 HTN Hyperlipidemia Hypothyroidism Rheumatoid arthritis per the pt Psoriasis Past Surgical History Tubal ligation Reported Medications -Triamterene-Hydrochlorothiazide 75-50 Mg Tab PO DAILY -Glipizide 10 Mg PO BIDAC -Prednisone 10 Mg PO DAILY -Losartan 50 Mg PO DAILY -Synthroid 225 Mcg PO DAILY -Rosuvastatin 20 Mg PO HS Keflex 500Mg PO TID x 10 days, Naprosyn, and Prednisone taper (prescribed ) Allergies: Coded Allergies: No Known Allergies (Verified Allergy, Unknown, 05/04/17) Family History Mother with hx of brain tumor Father with hx of lung cancer related to asbestos per the pt Social History Patient denied alcohol, tobacco or illicit drug use on admission Physical Exam Vital Signs Vital Signs Date Time Temp Pulse Resp B/P (MAP) Pulse Ox O2 Delivery O2 Flow Rate FiO2 05/05/17 15:09 99 50 05/05/17 15:00 50 05/05/17 14:55 97.7 100 22 140/89 (106) 96 Ambu Bag 05/05/17 09:10 99.3 82 16 104/65 (78) 98 05/05/17 08:00 98.3 80 20 110/59 (76) 97 05/05/17 00:00 97.6 90 18 124/66 (85) 99 05/04/17 20:00 98.5 96 18 101/55 (70) 100 Physical Exam HEENT/ Neuro: Sedated, orally intubated, Pallor present, no icterus, tongue/ mucosa moist Neck: No JVD Chest/Pulm: on mech vent, good air entry bilaterally, no wheezing or crackles CVS: S1-S2 regular, no murmur GI/abdomen: soft, nontender, bowel sounds sluggish Extremities: warm bilaterally, no edema Laboratory Laboratory Tests Test 05/05/17 01:42 White Blood Count 14.9 Red Blood Count 2.90 Hemoglobin 8.9 Hematocrit 25.8 Mean Corpuscular Volume 89.1 Mean Corpuscular Hemoglobin 30.6 Mean Corpuscular Hemoglobin Concent 34.3 Red Cell Distribution Width 16.6 Platelet Count 125 Mean Platelet Volume 9.9 Neutrophils (%) (Auto) 80.8 Lymphocytes (%) (Auto) 11.6 Monocytes (%) (Auto) 5.8 Eosinophils (%) (Auto) 1.5 Basophils (%) (Auto) 0.3 Neutrophils # (Auto) 12.0 Lymphocytes # (Auto) 1.7 Monocytes # (Auto) 0.9 Eosinophils # (Auto) 0.2 Basophils # (Auto) 0.0 CBC Comment AUTO DIFF Differential Comment AUTO DIFF CONFIRMED Blood Urea Nitrogen 30 Creatinine 1.19 Random Glucose 399 Calcium Level 8.4 Sodium Level 138 Potassium Level 3.8 Chloride Level 101 Carbon Dioxide Level 29.0 Anion Gap 8 Estimat Glomerular Filtration Rate 50 Result Diagram: 05/05/17 0142 05/05/17 0142 Imaging Last Impressions Abdomen/Pelvis CT 05/04/17 1549 Signed Impressions: Service Date/Time: Thursday, May 04, 2017 17:19 - CONCLUSION: Mobile gallstones with inflammatory changes around the gallbladder Induration around the pancreas Findings are suspicious for pancreatitis without acute cholecystitis. Joe Beaver MD FACR Assessment and Plan Assessment and Plan 42-year-old female with: Upper GI bleed secondary to bleeding gastric varix status post embolization by IR Acute blood loss anemia Acute respiratory failure on mechanical ventilation Morbid obesity Diabetes mellitus, type 2 HTN Hyperlipidemia Hypothyroidism Rheumatoid arthritis Psoriasis Plan: Neuro: Sedation with propofol, fentanyl gtt. with daily sedation vacation. Cardiovascular: IV hydration, watch for hypotension. Pulmonary: Continue mechanical ventilation, vent bundle, bronchodilators as needed. GI/liver: Nothing by mouth. Discussed with GI will plan repeat EGD and next few days. Continue Protonix and octreotide drips per GI. Heme: Follow CBC and coags. Transfuse to keep hemoglobin above 7 g percent. ID: No antibiotics at this time. Endocrine: SSI for glycemic control. Continue Synthroid Prophylaxis: Protonix drip, SCDs. No heparin or Lovenox in view of GI bleed. Discussed with Dr. Rodriguez. Plan to leave her intubated and if hemoglobin stable overnight will consider C Pap trials in a.m. to decide extubation. Condition critical Time spent on critical care excluding procedures 40 minutes Dario Payan MD May 05, 2017 17:44
[2017-05-05] MEDS ORDERED: fentaNYL DRIP 250 ML IV PRN (18:00)
[2017-05-05 18:16] LABS: AUTOMATED NEUTROPHIL # 10.4 TH/MM3 (1.8-7.7); BASOPHIL # 0.1 TH/MM3 (0-0.2); BASOPHIL % 0.6 % (0.0-2.0); EOSINOPHIL # 0.1 TH/MM3 (0-0.4); EOSINOPHIL % 1.1 % (0.0-4.0); HEMATOCRIT 29.6 % (35.0-46.0); HEMOGLOBIN 10.5 GM/DL (11.6-15.3); LYMPH % 9.4 % (9.0-44.0); LYMPHOCYTE # 1.2 TH/MM3 (1.0-4.8); MEAN CELL VOLUME 88.9 FL (80.0-100.0); MEAN CORPUSCULAR HEMOGLOBIN 31.5 PG (27.0-34.0); MEAN CORPUSCULAR HGB CONC 35.5 % (32.0-36.0); MEAN PLATELET VOLUME 10.8 FL (7.0-11.0); MONO % 6.5 % (0.0-8.0); MONOCYTE # 0.8 TH/MM3 (0-0.9); NEUT % 82.4 % (16.0-70.0); PLATELET COUNT 109 TH/MM3 (150-450); RED BLOOD COUNT 3.33 MIL/MM3 (4.00-5.30); RED CELL DISTRIBUTION WIDTH 16.5 % (11.6-17.2); WHITE BLOOD COUNT 12.6 TH/MM3 (4.0-11.0)
[2017-05-05] MEDS: OCTREOTIDE INJ 500 MCG in SODIUM CHLORID 0.9% 500 ML INJ 499.5 ML IV SCH (18:26)
[2017-05-05 18:27] LABS: ALBUMIN 2.2 GM/DL (3.4-5.0); ALKALINE PHOSPHATASE 62 U/L (45-117); ALT (GPT) 82 U/L (10-53); AST (GOT) 132 U/L (15-37); BICARBONATE 28.4 MEQ/L (21.0-32.0); BLOOD UREA NITROGEN 30 MG/DL (7-18); CALCIUM 7.8 MG/DL (8.5-10.1); CHLORIDE 102 MEQ/L (98-107); CREATININE 1.06 MG/DL (0.50-1.00); GLOMERULAR FILTRATION RATE 57 ML/MIN (>89); GLUCOSE,RANDOM 314 MG/DL (74-106); SODIUM (NA) 139 MEQ/L (136-145); TOTAL BILIRUBIN ADULT 4.2 MG/DL (0.2-1.0); TOTAL PROTEIN 5.7 GM/DL (6.4-8.2)
--- NOTE | 2017-05-05 18:42 | PD.PROCEDR ---
Procedure Note Procedure Diagnoses: Hemorrhagic shock, poor venous access Operation: Insertion left subclavian central venous line Procedure: Timeout performed. Patient identified. Left chest prepped and draped. Infraclavicular region anesthetized with local 1% Xylocaine infiltration. A thin-walled needle cannulated the subclavian vein on the left side under the clavicle. A floppy wire was easily delivered into the central circulation. A dilator was passed. The triple-lumen catheter was then passed over the floppy wire to a distance of 18 cm. 3 lm were aspirated and flushed. A StatLock was attached to the skin and a sterile dressing was applied. Chest x -ray was performed, will review. Martinez Thompson MD May 05, 2017 18:42
[2017-05-05 19:43] LABS: HEMATOCRIT 28.1 % (35.0-46.0); HEMOGLOBIN 9.8 GM/DL (11.6-15.3)
--- NOTE | 2017-05-05 19:52 | RADRPT ---
EXAM DATE/TIME: 05/05/2017 18:44 [facility] COMPARISON: CHEST SINGLE AP, May 05, 2017, 15:07. INDICATIONS : Evaluate central line placement MEDICAL HISTORY : Hypercholesterolemia. Hypertension. Thyroid disease SURGICAL HISTORY : Tubal ligation. ENCOUNTER: Subsequent ACUITY: 1 day PAIN SCORE: Non-responsive. LOCATION: chest FINDINGS: Left central line has been placed with tip in superior vena cava. No pneumothorax. Bilateral SC basil ar airspace disease similar to earlier examination. Endotracheal tube tip is near leonor directed tow ards the right side. CONCLUSION: 1. Left central line in superior vena cava without pneumothorax. Endotracheal tube tip at leonor. Terrence Newton MD on May 05, 2017 at 19:48 Board Certified Radiologist. This report was verified electronically.
[2017-05-05 20:02] LABS: INTERNATIONAL NORMALIZED RATIO 1.2 RATIO; PROTHROMBIN TIME - PATIENT 11.9 SEC (9.8-11.6)
[2017-05-05] MEDS: ATORVASTATIN 40 MG TAB PO SCH (21:10)
[2017-05-06] VITALS (19 sets, daily range): BP systolic 116–139; BP diastolic 68–76; PULSE 87–104; RESP 18–21; TEMP 98.2–98.8; O2SAT 98–100
[2017-05-06 01:11] LABS: HEMATOCRIT 29.4 % (35.0-46.0); HEMOGLOBIN 10.5 GM/DL (11.6-15.3)
[2017-05-06] MEDS: PROPOFOL 1000 MG/100 ML IV PRN ×2 (02:27→07:34)
[2017-05-06] MEDS: PANTOPRAZOLE INJ 80 MG in SODIUM CHLORIDE 0.9% INJ 100 ML IV SCH ×4 (04:25→21:46)
[2017-05-06 05:29] LABS: AUTOMATED NEUTROPHIL # 14.6 TH/MM3 (1.8-7.7); BASOPHIL # 0.2 TH/MM3 (0-0.2); EOSINOPHIL # 0.3 TH/MM3 (0-0.4); EOSINOPHIL % 1.7 % (0.0-4.0); HEMATOCRIT 28.5 % (35.0-46.0); HEMOGLOBIN 10.3 GM/DL (11.6-15.3); LYMPH % 9.1 % (9.0-44.0); LYMPHOCYTE # 1.7 TH/MM3 (1.0-4.8); MEAN CELL VOLUME 88.2 FL (80.0-100.0); MEAN CORPUSCULAR HEMOGLOBIN 31.9 PG (27.0-34.0); MEAN PLATELET VOLUME 9.4 FL (7.0-11.0); MONO % 7.8 % (0.0-8.0); MONOCYTE # 1.4 TH/MM3 (0-0.9); NEUT % 80.4 % (16.0-70.0); PLATELET COUNT 125 TH/MM3 (150-450); RED BLOOD COUNT 3.23 MIL/MM3 (4.00-5.30); RED CELL DISTRIBUTION WIDTH 16.6 % (11.6-17.2); WHITE BLOOD COUNT 18.1 TH/MM3 (4.0-11.0)
[2017-05-06] MEDS: LEVOTHYROXINE SODIUM 200 MCG TAB PO SCH (05:37)
[2017-05-06] MEDS: LEVOTHYROXINE SODIUM 25 MCG TAB PO SCH (05:37)
[2017-05-06 05:59] LABS: MEAN CORPUSCULAR HGB CONC 36.1 % (32.0-36.0)
[2017-05-06 06:17] LABS: ALBUMIN 2.1 GM/DL (3.4-5.0); BICARBONATE 23.9 MEQ/L (21.0-32.0); CALCIUM 7.3 MG/DL (8.5-10.1); CALCIUM-PROTEIN CORRECTED 8.1 MG/DL (8.5-10.1); CREATININE 1.09 MG/DL (0.50-1.00); TOTAL PROTEIN 5.6 GM/DL (6.4-8.2)
[2017-05-06] MEDS: SODIUM CHLOR 0.9% 1000 ML INJ 1,000 ML IV SCH ×2 (06:50→16:40)
[2017-05-06 07:09] LABS: TEARDROP RBCS 1+ (NORMAL)
--- NOTE | 2017-05-06 08:50 | HHI.CCPN ---
Subjective Remarks/Hospital Course 05/05: Mrs. Kramer is a pleasant 42 y/o WF with Diabetes mellitus, HTN, hyperlipidemia and hypothyroidism. She presented to the ED at [facility] on 05/04/17 with complaints of N/V and black tarry stools for the last few days. She reported that she has been unable to keep much of any food or fluids down for the last few days. She has had subjective fevers and chills. She has some mid to upper abdominal "soreness" which she relates to retching for the last few days. Her last episode of vomiting was this morning prior to coming to the ED and she states that it was dark red. Denies any previous similar episodes. She denies any alcohol or tobacco. Pt takes Prednisone 10mg po daily for RA and last took it . She also noted that she had been on Meloxicam 15mg once daily for her RA which was started about one month which she stopped about 1 week ago. She was seen at [facility] on 04/29/17 with a possible allergic reaction to something (not sure what it was) and had swelling on the left side of her lip/ face and was prescribed a prednisone taper and was also prescribed Keflex and Naprosyn on 04/29/17 for possible cellulitis and states that she took the Naprosyn until the N/V started. She was noted to be guaiac positive in the ED. She denies any reflux, dysphagia, constipation, diarrhea, chest pain, SOB, palpitations, dizziness or weakness. Patient was evaluated by GI and underwent EGD on 05/05. During EGD patient was noted to have significant active bleeding from a gastric varix with 1 L of blood loss. She was intubated during EGD and subsequently taken to where she underwent successful embolization of a bleeding gastric varix. She did get 2 units PRBCs transfused. Following procedure patient was transferred to PACU and then to [facility]. Critical care consult was requested by Dr. Rodriguez from GI as patient was kept intubated on mechanical ventilation. When I evaluated the patient in the ICU following her arrival, she was sedated with propofol, orally intubated on mechanical ventilation. History was obtained by reviewing records and discussion with nursing staff and Dr. Rodriguez. 05/06: Remains sedated, orally intubated on mechanical ventilation. Objective Vital Signs Date Time Temp Pulse Resp B/P (MAP) Pulse Ox O2 Delivery O2 Flow Rate FiO2 05/06/17 07:49 100 40 05/06/17 06:00 103 05/06/17 04:00 98.2 20 126/73 (90) 05/05/17 20:00 Mechanical Ventilator Intake and Output 05/06/17 05/06/17 05/07/17 08:00 16:00 00:00 Intake Total 1200 ml Output Total 600 ml Balance 600 ml Result Diagram: 05/06/17 0510 05/06/17 0510 Other Results Laboratory Tests Test 05/05/17 18:53 Blood Gas Puncture Site LINE Blood Gas Patient Temperature 98.6 Venous Blood pH 7.38 (7.360-7.400) Venous Blood Partial Pressure CO2 46 mmHg (44-48) Venous Blood Partial Pressure O2 39 mmHg (35-40) Venous Blood HCO3 27 mmol/L (22-26) Venous Blood Oxygen Saturation 69 % (70-76) Venous Blood Oxygen Content 8.8 Vol % (9.0-17.0) Venous Blood Base Excess 2.0 mmol/L (-2-2) Oxygen Delivery Device VENTILATOR Blood Gas Ventilator Setting 500/12/+5/1.0 Blood Gas Inspired Oxygen 50 % Imaging Last Impressions Abdomen/Pelvis CT 05/04/17 1549 Signed Impressions: Service Date/Time: Thursday, May 04, 2017 17:19 - CONCLUSION: Mobile gallstones with inflammatory changes around the gallbladder Induration around the pancreas Findings are suspicious for pancreatitis without acute cholecystitis. Joe Beaver MD FACR Objective Remarks HEENT/ Neuro: Sedated, orally intubated, Pallor present, no icterus, tongue/ mucosa moist Neck: No JVD Chest/Pulm: on mech vent, good air entry bilaterally, no wheezing or crackles CVS: S1-S2 regular, no murmur GI/abdomen: soft, nontender, bowel sounds sluggish Extremities: warm bilaterally, no edema A/P Assessment and Plan 42-year-old female with: Upper GI bleed secondary to bleeding gastric varix status post embolization by IR Acute blood loss anemia Acute respiratory failure on mechanical ventilation Morbid obesity Diabetes mellitus, type 2 HTN Hyperlipidemia Hypothyroidism Rheumatoid arthritis Psoriasis Plan: Neuro: Sedation with propofol, fentanyl gtt. with daily sedation vacation. Cardiovascular: IV hydration, watch for hypotension. Pulmonary: Continue mechanical ventilation, vent bundle, bronchodilators as needed. C Pap trials to decide extubation. GI/liver: Nothing by mouth. Discussed with GI, will plan repeat EGD in next few days. Continue Protonix and octreotide drips per GI. Heme: Follow CBC and coags. Transfuse to keep hemoglobin above 7 g percent. ID: No antibiotics at this time. Endocrine: SSI for glycemic control. Continue Synthroid Prophylaxis: Protonix drip, SCDs. No heparin or Lovenox in view of GI bleed. Condition critical Time spent on critical care excluding procedures 30 minutes Dario Payan MD May 06, 2017 08:50
[2017-05-06] MEDS: OCTREOTIDE INJ 500 MCG in SODIUM CHLORID 0.9% 500 ML INJ 499.5 ML IV SCH ×2 (09:02→18:08)
--- NOTE | 2017-05-06 09:03 | HHI.GIFU ---
Subjective Remarks Patient's resting in the bed currently on ventilator management and sedation Mild tachycardia heart rate 100 103 Family member in room Afebrile ([place] M[place]) Objective Vitals I&O Vital Signs Date Time Temp Pulse Resp B/P (MAP) Pulse Ox O2 Delivery O2 Flow Rate FiO2 05/06/17 07:49 100 40 05/06/17 06:00 103 05/06/17 04:07 100 40 05/06/17 04:00 100 05/06/17 04:00 50 05/06/17 04:00 98.2 100 20 126/73 (90) 100 05/06/17 02:00 104 05/06/17 01:20 100 40 05/06/17 00:00 98 05/06/17 00:00 98.4 101 18 120/72 (88) 100 05/05/17 22:00 98.4 97 17 108/66 (80) 100 05/05/17 22:00 78 05/05/17 20:00 100 Mechanical Ventilator 50 05/05/17 20:00 50 05/05/17 20:00 89 05/05/17 19:37 100 50 05/05/17 19:00 98.2 79 19 138/68 (91) 99 05/05/17 18:06 100 50 05/05/17 16:30 98.5 76 18 116/69 (85) 100 05/05/17 16:00 100 100 05/05/17 15:45 97.9 81 20 117/69 (85) 100 Mechanical Ventilator 50 05/05/17 15:30 83 22 120/62 (81) 100 Mechanical Ventilator 50 05/05/17 15:15 86 22 119/65 (83) 99 Mechanical Ventilator 50 05/05/17 15:09 99 50 05/05/17 15:00 50 05/05/17 15:00 95 24 117/56 (76) 99 Mechanical Ventilator 50 05/05/17 14:55 97.7 100 22 140/89 (106) 96 Ambu Bag 05/05/17 09:10 99.3 82 16 104/65 (78) 98 I/O 05/05/17 05/05/17 05/05/17 05/06/17 05/06/17 05/06/17 07:00 15:00 23:00 07:00 15:00 23:00 Intake Total 1500 ml 200 ml 1200 ml Output Total 1000 ml 550 ml 600 ml Balance 500 ml -350 ml 600 ml Intake Oral 0 ml IV Total 200 ml 1200 ml Other 1500 ml Output Urine Total 550 ml 600 ml Estimated Blood Loss 1000 ml # Bowel Movements 0 Laboratory Laboratory Tests Test 05/05/17 17:10 05/05/17 18:45 05/05/17 18:53 05/05/17 19:00 White Blood Count 12.6 Red Blood Count 3.33 Hemoglobin 10.5 Hematocrit 29.6 Mean Corpuscular Volume 88.9 Mean Corpuscular Hemoglobin 31.5 Mean Corpuscular Hemoglobin Concent 35.5 Red Cell Distribution Width 16.5 Platelet Count 109 Mean Platelet Volume 10.8 Neutrophils (%) (Auto) 82.4 Lymphocytes (%) (Auto) 9.4 Monocytes (%) (Auto) 6.5 Eosinophils (%) (Auto) 1.1 Basophils (%) (Auto) 0.6 Neutrophils # (Auto) 10.4 Lymphocytes # (Auto) 1.2 Monocytes # (Auto) 0.8 Eosinophils # (Auto) 0.1 Basophils # (Auto) 0.1 CBC Comment DIFF FINAL Differential Comment Blood Urea Nitrogen 30 Creatinine 1.06 Random Glucose 314 Total Protein 5.7 Albumin 2.2 Calcium Level 7.8 Alkaline Phosphatase 62 Aspartate Amino Transf (AST/SGOT) 132 Alanine Aminotransferase (ALT/SGPT) 82 Total Bilirubin 4.2 Sodium Level 139 Potassium Level 4.2 Chloride Level 102 Carbon Dioxide Level 28.4 Anion Gap 9 Estimat Glomerular Filtration Rate 57 Nasal Screen MRSA (PCR) MRSA NOT DETECTED Blood Gas Puncture Site LINE Blood Gas Patient Temperature 98.6 Venous Blood pH 7.38 Venous Blood Partial Pressure CO2 46 Venous Blood Partial Pressure O2 39 Venous Blood HCO3 27 Venous Blood Oxygen Saturation 69 Venous Blood Oxygen Content 8.8 Venous Blood Base Excess 2.0 Oxygen Delivery Device VENTILATOR Blood Gas Ventilator Setting 500/12/+5/1.0 Blood Gas Inspired Oxygen 50 Prothrombin Time 11.9 Prothromb Time International Ratio 1.2 Activated Partial Thromboplast Time 20.3 Test 05/05/17 19:10 05/06/17 00:00 05/06/17 05:10 Hemoglobin 9.8 10.5 10.3 Hematocrit 28.1 29.4 28.5 White Blood Count 18.1 Red Blood Count 3.23 Mean Corpuscular Volume 88.2 Mean Corpuscular Hemoglobin 31.9 Mean Corpuscular Hemoglobin Concent 36.1 Red Cell Distribution Width 16.6 Platelet Count 125 Mean Platelet Volume 9.4 Neutrophils (%) (Auto) 80.4 Lymphocytes (%) (Auto) 9.1 Monocytes (%) (Auto) 7.8 Eosinophils (%) (Auto) 1.7 Basophils (%) (Auto) 1.0 Neutrophils # (Auto) 14.6 Lymphocytes # (Auto) 1.7 Monocytes # (Auto) 1.4 Eosinophils # (Auto) 0.3 Basophils # (Auto) 0.2 CBC Comment AUTO DIFF Differential Comment AUTO DIFF CONFIRMED Platelet Estimate LOW Platelet Morphology Comment NORMAL Tear Drop Cells 1+ Blood Urea Nitrogen 34 Creatinine 1.09 Random Glucose 270 Total Protein 5.6 Albumin 2.1 Calcium Level 7.3 Alkaline Phosphatase 63 Aspartate Amino Transf (AST/SGOT) 213 Alanine Aminotransferase (ALT/SGPT) 123 Total Bilirubin 2.0 Sodium Level 139 Potassium Level 4.2 Chloride Level 105 Carbon Dioxide Level 23.9 Anion Gap 10 Estimat Glomerular Filtration Rate 55 Protein Corrected Calcium 8.1 Lipase 444 Imaging Last Impressions Venogram 05/05/17 0000 Signed Impressions: Service Date/Time: Friday, May 05, 2017 12:18 - CONCLUSION: The patient has large varicosities centered at the GE junction and along the lesser curvature of the stomach which drained via a gastrorenal shunt. Successful coil embolization was performed. John Hartley Jr., MD Gall Bladder Ultrasound 05/05/17 0000 Signed Impressions: Service Date/Time: Friday, May 05, 2017 09:01 - CONCLUSION: Abnormal gallbladder appearance with stones sludge and wall thickening Donnell Zuluaga MD Chest X-Ray 05/05/17 0000 Signed Impressions: Service Date/Time: Friday, May 05, 2017 18:44 - CONCLUSION: 1. Left central line in superior vena cava without pneumothorax. Endotracheal tube tip at leonor. Terrence Newton MD Abdomen/Pelvis CT 05/04/17 1549 Signed Impressions: Service Date/Time: Thursday, May 04, 2017 17:19 - CONCLUSION: Mobile gallstones with inflammatory changes around the gallbladder Induration around the pancreas Findings are suspicious for pancreatitis without acute cholecystitis. Joe Beaver MD FACR Physical Exam HEENT: Normocephalic atraumatic, oral ET tube NECK: Neck is supple, obese CHEST: Diminished breath sounds mild rhonchi CARDIAC: Regular rate and mild tachycardia heart rate 103 ABDOMEN: Large, taut, obese; mild bloating bowel sounds are present in all four quadrants. EXTREMITIES: No clubbing, cyanosis, or edema. SKIN: Normal; no rash; no jaundice. SURGEON ASSISTANT: Sedated (Mallory Feliciano) Assessment and Plan Plan History. pleasant 42-year-old lady with multiple medical problems, admitted with hematemesis and melena and recent use of nonsteroidal anti-inflammatory drugs and prednisone, most likely gastritis or peptic ulcer disease. Abdominal discomfort, abnormal CT suggesting mild pancreatitis, abnormal gallbladder, possible cholecystitis. Elevation of the liver enzymes most likely secondary to mild pancreatitis and cholecystitis. EGD 05/05/17, Found Gastric varices and Erosive gastritis , Sent to the ICU setting, Went to IR for embolization . Right groin access, Large varices around GE junction found which drain largely via the left renal vein. Labs noted bilirubin 2, mild decrease, LFTs AST 213/123 ALT, increase lipase level 444, hemoglobin 10.3 no obvious bleeding. Gallbladder ultrasound showed gallstones sludge. May need to consider GS PLAN: Await biopsies octreotide and pantoprazole drip Probable repeat endoscopy in a few days Monitor labs Monitor for any acute bleeding Zofran Supportive care to family (Mallory Feliciano) Physician Comments Patient seen and examined Agree with above Continue with current supportive care Monitor labs Probably plan on an EGD on (Shane Rodriguez MD) Mallory Feliciano May 06, 2017 09:03 Shane Rodriguez MD May 06, 2017 21:03
[2017-05-06] MEDS: INSULIN ASPART SUPPLEMENTAL SCALE SQ SCH ×4 (09:35→21:46)
[2017-05-06 12:31] LABS: HEMOGLOBIN 10.3 GM/DL (11.6-15.3)
[2017-05-06 20:21] LABS: HEMATOCRIT 27.8 % (35.0-46.0); HEMOGLOBIN 9.6 GM/DL (11.6-15.3)
[2017-05-06] MEDS: ATORVASTATIN 40 MG TAB PO SCH (20:48)
[2017-05-06] MEDS: SODIUM CHLORIDE 0.9% FLUSH 10 ML FLUSH IV FLUSH SCH ×2 (20:48→21:45)
[2017-05-07] VITALS (12 sets, daily range): BP systolic 98–156; BP diastolic 52–70; PULSE 65–91; RESP 17–25; TEMP 98.1–98.7; O2SAT 96–100
[2017-05-07] MEDS: ACETAMINOPHEN 325 MG TAB PO PRN ×3 (01:33→20:09)
[2017-05-07] MEDS: SODIUM CHLOR 0.9% 1000 ML INJ 1,000 ML IV SCH ×3 (04:35→16:30)
[2017-05-07 06:09] LABS: AUTOMATED NEUTROPHIL # 11.9 TH/MM3 (1.8-7.7); BASOPHIL # 0.1 TH/MM3 (0-0.2); BASOPHIL % 0.5 % (0.0-2.0); EOSINOPHIL # 0.3 TH/MM3 (0-0.4); HEMATOCRIT 24.7 % (35.0-46.0); HEMOGLOBIN 8.4 GM/DL (11.6-15.3); LYMPH % 9.4 % (9.0-44.0); LYMPHOCYTE # 1.4 TH/MM3 (1.0-4.8); MEAN CELL VOLUME 89.8 FL (80.0-100.0); MEAN CORPUSCULAR HEMOGLOBIN 30.5 PG (27.0-34.0); MEAN CORPUSCULAR HGB CONC 33.9 % (32.0-36.0); MEAN PLATELET VOLUME 9.2 FL (7.0-11.0); MONO % 7.4 % (0.0-8.0); MONOCYTE # 1.1 TH/MM3 (0-0.9); NEUT % 80.7 % (16.0-70.0); PLATELET COUNT 76 TH/MM3 (150-450); RED BLOOD COUNT 2.75 MIL/MM3 (4.00-5.30); RED CELL DISTRIBUTION WIDTH 16.9 % (11.6-17.2); WHITE BLOOD COUNT 14.8 TH/MM3 (4.0-11.0)
[2017-05-07] MEDS: LEVOTHYROXINE SODIUM 200 MCG TAB PO SCH (06:20)
[2017-05-07] MEDS: LEVOTHYROXINE SODIUM 25 MCG TAB PO SCH (06:20)
[2017-05-07 06:41] LABS: BICARBONATE 24.8 MEQ/L (21.0-32.0); CALCIUM 6.9 MG/DL (8.5-10.1); CALCIUM-PROTEIN CORRECTED 7.9 MG/DL (8.5-10.1); CREATININE 0.89 MG/DL (0.50-1.00); TOTAL PROTEIN 5.2 GM/DL (6.4-8.2)
[2017-05-07 07:40] LABS: BANDS 8 % (0-6); LYMPHOCYTES 4 % (9-44); METAMYELOCYTES 2 % (0-1); MONOCYTES 1 % (0-8); MYELOCYTES 1 % (0-0); NEUTROPHIL # MANUAL DIFF 13.9 TH/MM3 (1.8-7.7); POLYS (SEG NEUTROPHILS) 83 % (16-70)
[2017-05-07] MEDS: PANTOPRAZOLE INJ 80 MG in SODIUM CHLORIDE 0.9% INJ 100 ML IV SCH ×3 (08:57→20:09)
[2017-05-07] MEDS: INSULIN ASPART SUPPLEMENTAL SCALE SQ SCH ×4 (08:58→20:26)
[2017-05-07] MEDS: SODIUM CHLORIDE 0.9% FLUSH 10 ML FLUSH IV FLUSH SCH ×2 (08:58→20:08)
[2017-05-07] MEDS: OCTREOTIDE INJ 500 MCG in SODIUM CHLORID 0.9% 500 ML INJ 499.5 ML IV SCH (13:26)
--- NOTE | 2017-05-07 16:06 | HHI.GIFU ---
Subjective Remarks Patient resting quietly in bed, able to lie flat No nausea vomiting Tolerating clear with liquids. Hemoglobin stable at 8.4 without any obvious bleeding (Mallory Feliciano) Objective Vitals I&O Vital Signs Date Time Temp Pulse Resp B/P (MAP) Pulse Ox O2 Delivery O2 Flow Rate FiO2 05/07/17 14:00 80 05/07/17 12:00 98.1 86 20 126/57 (80) 97 05/07/17 12:00 86 05/07/17 10:00 82 05/07/17 08:00 80 05/07/17 08:00 98.7 65 20 98/52 (67) 99 05/07/17 07:00 96 Room Air 05/07/17 06:00 98.3 65 17 156/70 (98) 99 05/07/17 06:00 86 05/07/17 04:00 85 05/07/17 04:00 98.2 91 18 114/65 (81) 96 05/07/17 02:00 86 05/07/17 00:00 98.3 91 21 130/68 (88) 100 05/07/17 00:00 91 05/06/17 22:00 90 05/06/17 20:00 98.8 90 20 127/68 (87) 100 05/06/17 20:00 87 05/06/17 19:46 100 05/06/17 19:46 100 Nasal Cannula 4.00 05/06/17 19:00 100 Nasal Cannula 2.00 05/06/17 18:00 92 I/O 05/06/17 05/06/17 05/06/17 05/07/17 05/07/17 05/07/17 07:00 15:00 23:00 07:00 15:00 23:00 Intake Total 1200 ml 10 ml 0 ml 620 ml Output Total 600 ml 500 ml 650 ml Balance 600 ml 10 ml -500 ml -30 ml Intake Oral 0 ml 0 ml 620 ml IV Total 1200 ml 10 ml Output Urine Total 600 ml 500 ml 650 ml # Bowel Movements 0 0 0 Laboratory Laboratory Tests Test 05/06/17 19:25 05/07/17 06:00 Hemoglobin 9.6 8.4 Hematocrit 27.8 24.7 White Blood Count 14.8 Red Blood Count 2.75 Mean Corpuscular Volume 89.8 Mean Corpuscular Hemoglobin 30.5 Mean Corpuscular Hemoglobin Concent 33.9 Red Cell Distribution Width 16.9 Platelet Count 76 Mean Platelet Volume 9.2 Neutrophils (%) (Auto) 80.7 Lymphocytes (%) (Auto) 9.4 Monocytes (%) (Auto) 7.4 Eosinophils (%) (Auto) 2.0 Basophils (%) (Auto) 0.5 Neutrophils # (Auto) 11.9 Lymphocytes # (Auto) 1.4 Monocytes # (Auto) 1.1 Eosinophils # (Auto) 0.3 Basophils # (Auto) 0.1 CBC Comment AUTO DIFF Differential Total Cells Counted 100 Neutrophils % (Manual) 83 Band Neutrophils % 8 Lymphocytes % 4 Monocytes % 1 Eosinophils % 1 Neutrophils # (Manual) 13.9 Metamyelocytes 2 Myelocytes 1 Differential Comment FINAL DIFF MANUAL Platelet Estimate LOW Platelet Morphology Comment NORMAL Blood Urea Nitrogen 28 Creatinine 0.89 Random Glucose 227 Total Protein 5.2 Albumin 2.0 Calcium Level 6.9 Alkaline Phosphatase 61 Aspartate Amino Transf (AST/SGOT) 240 Alanine Aminotransferase (ALT/SGPT) 163 Total Bilirubin 1.0 Sodium Level 140 Potassium Level 4.0 Chloride Level 108 Carbon Dioxide Level 24.8 Anion Gap 7 Estimat Glomerular Filtration Rate 69 Protein Corrected Calcium 7.9 Imaging Last Impressions Venogram 05/05/17 0000 Signed Impressions: Service Date/Time: Friday, May 05, 2017 12:18 - CONCLUSION: The patient has large varicosities centered at the GE junction and along the lesser curvature of the stomach which drained via a gastrorenal shunt. Successful coil embolization was performed. John Hartley Jr., MD Gall Bladder Ultrasound 05/05/17 0000 Signed Impressions: Service Date/Time: Friday, May 05, 2017 09:01 - CONCLUSION: Abnormal gallbladder appearance with stones sludge and wall thickening Donnell Zuluaga MD Chest X-Ray 05/05/17 0000 Signed Impressions: Service Date/Time: Friday, May 05, 2017 18:44 - CONCLUSION: 1. Left central line in superior vena cava without pneumothorax. Endotracheal tube tip at leonor. Terrence Newton MD Abdomen/Pelvis CT 05/04/17 [id number] Signed Impressions: Service Date/Time: Thursday, May 04, 2017 17:19 - CONCLUSION: Mobile gallstones with inflammatory changes around the gallbladder Induration around the pancreas Findings are suspicious for pancreatitis without acute cholecystitis. Joe Beaver MD FACR Physical Exam HEENT: Normocephalic atraumatic, NECK: Neck is supple, obese CHEST: Shortness of breath, no obvious rhochi CARDIAC: Regular rate ABDOMEN: Large, obese; mild bloating, soft, bowel sounds are present in all four quadrants. EXTREMITIES: No clubbing, cyanosis, or edema. SKIN: Normal; no rash; no jaundice. PATHOLOGY LABORATORY TECHNOLOGIST: Awake responds to simple questions (Mallory Feliciano) Assessment and Plan Plan History. pleasant 42-year-old lady with multiple medical problems, admitted with hematemesis and melena and recent use of nonsteroidal anti-inflammatory drugs and prednisone, most likely gastritis or peptic ulcer disease. Abdominal discomfort, abnormal CT suggesting mild pancreatitis, abnormal gallbladder, possible cholecystitis. Elevation of the liver enzymes most likely secondary to mild pancreatitis and cholecystitis. EGD 05/05/17, Found Gastric varices and Erosive gastritis , Sent to the ICU setting, Went to IR for embolization . Right groin access, Large varices around GE junction found which drain largely via the left renal vein. Labs noted bilirubin 2, mild decrease, LFTs AST 213/123 ALT, increase lipase level 444, hemoglobin 10.3 no obvious bleeding. Gallbladder ultrasound showed gallstones sludge. May need to consider GS Venogram successful embolization 05/07/17 patient is now extubated, denies any nausea vomiting or abdominal pain. Taking small sips of clear liquids. No obvious bleeding in the globe and stable at 8.4, Will need repeat endoscopy in a few days PLAN: Await biopsies octreotide and pantoprazole drip Probable repeat endoscopy in a few days Monitor labs Monitor for any acute bleeding Zofran Supportive care to family, daughter in room Patient and daughter hoping to move to private room soon Patient was seen per myself and Dr. Rodriguez, note was written on his behalf (Mallory Feliciano) Physician Comments Patient seen and examined Agree with above Continue with current supportive care Monitor labs Plan for repeat EGD tomorrow (Shane Rodriguez MD) Mallory Feliciano May 07, 2017 16:06 Shane Rodriguez MD May 07, 2017 21:49
--- NOTE | 2017-05-07 16:59 | HHI.PR ---
Subjective Remarks No new complaints. pt is tolerating liquid diet. passing gas. NO BRB per rectum. No melanotic stools. No abdominal pain. Objective Vitals Vital Signs Date Time Temp Pulse Resp B/P (MAP) Pulse Ox O2 Delivery O2 Flow Rate FiO2 05/07/17 14:00 80 05/07/17 12:00 98.1 86 20 126/57 (80) 97 05/07/17 12:00 86 05/07/17 10:00 82 05/07/17 08:00 80 05/07/17 08:00 98.7 65 20 98/52 (67) 99 05/07/17 07:00 96 Room Air 05/07/17 06:00 98.3 65 17 156/70 (98) 99 05/07/17 06:00 86 05/07/17 04:00 85 05/07/17 04:00 98.2 91 18 114/65 (81) 96 05/07/17 02:00 86 05/07/17 00:00 98.3 91 21 130/68 (88) 100 05/07/17 00:00 91 05/06/17 22:00 90 05/06/17 20:00 98.8 90 20 127/68 (87) 100 05/06/17 20:00 87 05/06/17 19:46 100 05/06/17 19:46 100 Nasal Cannula 4.00 05/06/17 19:00 100 Nasal Cannula 2.00 05/06/17 18:00 92 Result Diagram: 05/07/17 0600 05/07/17 0600 Imaging Last Impressions Venogram 05/05/17 0000 Signed Impressions: Service Date/Time: Friday, May 05, 2017 12:18 - CONCLUSION: The patient has large varicosities centered at the GE junction and along the lesser curvature of the stomach which drained via a gastrorenal shunt. Successful coil embolization was performed. John Hartley Jr., MD Gall Bladder Ultrasound 05/05/17 0000 Signed Impressions: Service Date/Time: Friday, May 05, 2017 09:01 - CONCLUSION: Abnormal gallbladder appearance with stones sludge and wall thickening Donnell Zuluaga MD Chest X-Ray 05/05/17 0000 Signed Impressions: Service Date/Time: Friday, May 05, 2017 18:44 - CONCLUSION: 1. Left central line in superior vena cava without pneumothorax. Endotracheal tube tip at leonor. Terrence Newton MD Abdomen/Pelvis CT 05/04/17 1549 Signed Impressions: Service Date/Time: Thursday, May 04, 2017 17:19 - CONCLUSION: Mobile gallstones with inflammatory changes around the gallbladder Induration around the pancreas Findings are suspicious for pancreatitis without acute cholecystitis. Joe Beaver MD FACR Objective Remarks General: NAD, AAOx3 Chest: CTA Cardiac: Regular Abd: +BS, soft, obese, nondistended, upper abdominal tenderness, mostly RUQ Ext: No edema A/P Problem List: (1) GI bleed ICD Codes: K92.2 - Gastrointestinal hemorrhage, unspecified Status: Acute Plan: GIB/Hemoccult-positive stool Anemia Nausea/vomiting ?hematemesis - Pt is a 42 y/o WF with diabetes mellitus, HTN, hyperlipidemia and hypothyroidism. - She presented to the ED at [facility] [place] on 05/04/17 with complaints of N/V and black tarry stools for the last few days. She reported that she has been unable to keep much of any food or fluids down for the last few days. She has some mid to upper abdominal "soreness" which she relates to retching for the last few days. Her last episode of vomiting was this morning prior to coming to the ED and she states that it was dark red. - Pt is chronically on Prednisone and was recently taking Meloxicam up until about a week ago and more recently had been taking Naprosyn. - She was noted to be guaiac positive in the ED - Labs in the ED noted Hgb 11.2/Hct 33.9 - EGD (05/05) which noted erosive gastritis in the antrum and she was noted to have a large bulging of unclear significance with what looks like an ulceration which began to bleed during the procedure and it was felt that this was a gastric varix. The pt had about 1000mL of blood loss and Dr. Rodriguez was unable to apply a clip or inject or do any therapy during the procedure. - Pt was intubated and a second IV was opened and she was started with a 2 unit of packed RBC transfusion - Embolization of gastric varix by IR 05/05 - IV octreotide and pantoprazole drip - Hg 8.6 (05/07), repeat CBC now and in AM - Case d/w Dr. Rodriguez. Repeat EGD (05/08) - supportive care - DVT prophylaxis MARIA DEL ROSARIO Dehydration from poor PO intake - Labs at admission with Cr 1.33/BUN 46, GFR 44 - Improving on IVF - Repeat labs (05/04) --> Cr 1.19, BUN 30, GFR 50 Leukocytosis - Likely reactive, pt has been afebrile since admission - Pt received IVF and Zosyn/Vancomycin in the ED we will hold on continuing Abx at this time - Repeat labs this morning with WBC count decreased to 14.9 on 05/[address] indicating possible pancreatitis +/- acute cholecystitis - CT Abd/pelvis with IV Contrast (05/04/17) --> Mobile gallstones with inflammatory changes around the gallbladder, Induration around the pancreas, and findings are suspicious for pancreatitis with or without acute cholecystitis - GB US performed this morning, await results - Lipase at admission was WNL at 237 - Repeat LFTs and Lipase in AM Diabetes mellitus, type 2 - Hold OHA - BS at admission significantly elevated at 527 but she has been unable to tolerated po intake and hasn't taken her meds for the last few days - NovoLog SSI HTN - Hold home meds due to MARIA DEL ROSARIO - BP stable - Clonidine PRN - Monitor Hyperlipidemia - Cont. home meds Hypothyroidism - Cont. home meds (2) MARIA DEL ROSARIO (acute kidney injury) ICD Codes: N17.9 - Acute kidney failure, unspecified Status: Acute (3) Dehydration ICD Codes: E86.0 - Dehydration Status: Acute (4) Nausea & vomiting ICD Codes: R11.2 - Nausea with vomiting, unspecified Status: Acute (5) Diabetes mellitus ICD Codes: E11.9 - Type 2 diabetes mellitus without complications Status: Chronic (6) HTN (hypertension) ICD Codes: I10 - Essential (primary) hypertension Status: Chronic (7) Hyperlipidemia ICD Codes: E78.5 - Hyperlipidemia, unspecified Status: Chronic (8) Hypothyroidism ICD Codes: E03.9 - Hypothyroidism, unspecified Status: Chronic Assessment and Plan Patient examined. Assessment and plan formulated with Rachel LI I agree with the above. Problem Qualifiers (1) Diabetes mellitus: Bladimir Salguero DO May 07, 2017 16:59
[2017-05-07 18:19] LABS: AUTOMATED NEUTROPHIL # 12.7 TH/MM3 (1.8-7.7); BASOPHIL % 0.2 % (0.0-2.0); EOSINOPHIL # 0.3 TH/MM3 (0-0.4); EOSINOPHIL % 2.2 % (0.0-4.0); HEMATOCRIT 26.4 % (35.0-46.0); HEMOGLOBIN 8.9 GM/DL (11.6-15.3); LYMPH % 7.4 % (9.0-44.0); LYMPHOCYTE # 1.1 TH/MM3 (1.0-4.8); MEAN CELL VOLUME 91.2 FL (80.0-100.0); MEAN CORPUSCULAR HEMOGLOBIN 30.8 PG (27.0-34.0); MEAN CORPUSCULAR HGB CONC 33.8 % (32.0-36.0); MEAN PLATELET VOLUME 9.8 FL (7.0-11.0); MONO % 6.7 % (0.0-8.0); NEUT % 83.5 % (16.0-70.0); PLATELET COUNT 83 TH/MM3 (150-450); RED BLOOD COUNT 2.89 MIL/MM3 (4.00-5.30); RED CELL DISTRIBUTION WIDTH 17.7 % (11.6-17.2); WHITE BLOOD COUNT 15.3 TH/MM3 (4.0-11.0)
[2017-05-07 19:10] LABS: BANDS 5 % (0-6); CORRECTED NUCLEATED RBC 2 /100 WBC (0-0); LYMPHOCYTES 2 % (9-44); MONOCYTES 1 % (0-8); NEUTROPHIL # MANUAL DIFF 14.4 TH/MM3 (1.8-7.7); NUCLEATED RED BLOOD CELL 2 (0-0); POLYS (SEG NEUTROPHILS) 89 % (16-70)
[2017-05-07] MEDS: ATORVASTATIN 40 MG TAB PO SCH (20:09)
[2017-05-08] VITALS (10 sets, daily range): BP systolic 103–138; BP diastolic 62–81; PULSE 68–92; RESP 20–25; TEMP 96.4–98.7; O2SAT 95–96
[2017-05-08] MEDS: ACETAMINOPHEN 325 MG TAB PO PRN ×2 (04:18→11:01)
[2017-05-08] MEDS: SODIUM CHLOR 0.9% 1000 ML INJ 1,000 ML IV SCH ×2 (04:25→16:20)
[2017-05-08] MEDS: PANTOPRAZOLE INJ 80 MG in SODIUM CHLORIDE 0.9% INJ 100 ML IV SCH (05:35)
[2017-05-08] MEDS: LEVOTHYROXINE SODIUM 200 MCG TAB PO SCH (05:37)
[2017-05-08] MEDS: LEVOTHYROXINE SODIUM 25 MCG TAB PO SCH (05:37)
[2017-05-08] MEDS: SODIUM CHLORIDE 0.9% FLUSH 10 ML FLUSH IV FLUSH SCH ×2 (07:59→21:00)
[2017-05-08] MEDS: INSULIN ASPART SUPPLEMENTAL SCALE SQ SCH ×4 (07:59→22:00)
[2017-05-08 08:10] LABS: HEMATOCRIT 26.7 % (35.0-46.0); MEAN CELL VOLUME 91.3 FL (80.0-100.0); MEAN CORPUSCULAR HEMOGLOBIN 30.7 PG (27.0-34.0); MEAN CORPUSCULAR HGB CONC 33.6 % (32.0-36.0); MEAN PLATELET VOLUME 9.7 FL (7.0-11.0); PLATELET COUNT 77 TH/MM3 (150-450); RED BLOOD COUNT 2.93 MIL/MM3 (4.00-5.30); RED CELL DISTRIBUTION WIDTH 17.4 % (11.6-17.2); WHITE BLOOD COUNT 18.2 TH/MM3 (4.0-11.0)
[2017-05-08 08:36] LABS: BICARBONATE 23.9 MEQ/L (21.0-32.0); CALCIUM 7.1 MG/DL (8.5-10.1); CREATININE 0.74 MG/DL (0.50-1.00); MAGNESIUM 1.9 MG/DL (1.5-2.5)
[2017-05-08 08:47] LABS: CALCIUM-PROTEIN CORRECTED 7.8 MG/DL (8.5-10.1); TOTAL PROTEIN 5.7 GM/DL (6.4-8.2)
[2017-05-08 09:03] LABS: BANDS 5 % (0-6); CORRECTED NUCLEATED RBC 1 /100 WBC (0-0); LYMPHOCYTES 6 % (9-44); METAMYELOCYTES 2 % (0-1); MONOCYTES 3 % (0-8); NUCLEATED RED BLOOD CELL 1 (0-0); POLYS (SEG NEUTROPHILS) 81 % (16-70)
[2017-05-08 09:04] LABS: POLYCHROMASIA 2.1 % (0.0-1.9)
[2017-05-08] MEDS ORDERED: PROPOFOL 200 MG/20 ML AMP IV ONE (12:00)
[2017-05-08] MEDS ORDERED: LIDOCAINE HCL 1% PF 5 ML SYRINGE OTHER ONE (12:00)
--- NOTE | 2017-05-08 12:42 | PD.CONS ---
HPI Consult Requested By Dr. Bailey Reason for Consult Cholelithiasis and possible pancreatitis Primary Care Physician Erinn Pride M.D. History of Present Illness Ms. Kramer is a 42yo F who presented to the ED on 05/04/17 with complaints of lower abdominal pain and vomiting blood. She states this had never happened to her before. She denies ETOH use or excessive use of NSAIDS. She was taken to the GI lab and was found to have a large gastric varices that unfortunately bleed. The patient was emergently intubated and received 2 units PRBC. She was sent to interventional radiology and underwent embolization. She was extubated and H&H has been stable since. She is scheduled for repeat EGD today. Currently the patient complains of some lower quadrant abdominal pain but denies any instance of nausea or vomiting. Review of Systems Constitutional: DENIES: Diaphoretic episodes, Fatigue, Fever, Weight gain, Weight loss, Chills, Dizziness, Change in appetite, Night Sweats Endocrine: DENIES: Abnorml menstrual pattern, Heat/cold intolerance, Polydipsia , Polyuria, Polyphagia Eyes: DENIES: Blurred vision, Diplopia, Eye inflammation, Eye pain, Vision loss , Photosensitivity, Double Vision Ears, nose, mouth, throat: DENIES: Tinnitus, Hearing loss, Vertigo, Nasal discharge, Oral lesions, Throat pain, Hoarseness, Ear Pain, Running Nose, Epistaxis, Sinus Pain, Toothache, Odynophagia Respiratory: DENIES: Apneas, Cough, Snoring, Wheezing, Hemoptysis, Sputum production, Shortness of breath Cardiovascular: DENIES: Chest pain, Palpitations, Syncope, Dyspnea on Exertion , PND, Lower Extremity Edema, Orthopnea, Claudication Gastrointestinal: COMPLAINS OF: Abdominal pain Genitourinary: DENIES: Abnormal vaginal bleeding, Dysmenorrhea, Dyspareunia, Sexual dysfunction, Urinary frequency, Urinary incontinence, Urgency, Hematuria , Dysuria, Nocturia, Vaginal discharge Musculoskeletal: DENIES: Joint pain, Muscle aches, Stiffness, Joint Swelling, Back pain, Neck pain Integumentary: DENIES: Abnormal pigmentation, Pruritus, Rash, Nail changes, Breast masses, Breast skin changes, Nipple discharge Hematologic/lymphatic: DENIES: Bruising, Lymphadenopathy Immunologic/allergic: DENIES: Eczema, Urticaria Neurologic: DENIES: Abnormal gait, Headache, Localized weakness, Paresthesias, Seizures, Speech Problems, Tremor, Poor Balance Psychiatric: DENIES: Anxiety, Confusion, Mood changes, Depression, Hallucinations, Agitation, Suicidal Ideation, Homicidal Ideation, Delusions Past Family Social History Past Medical History HTN DM RA Psoriasis Past Surgical History Tubal ligation Reported Medications See EMR Allergies: Coded Allergies: No Known Allergies (Verified Allergy, Unknown, 05/04/17) Active Ordered Medications Current Medications Medications (Trade) Dose Ordered Sig/Vincent Route Start Time Stop Time Status Last Admin (NS Flush) 2 ml UNSCH PRN IV FLUSH 05/04/17 14:00 Pantoprazole Sodium 80 mg/ Sodium Chloride 100 ml @ 10 mls/hr Q10H IV 05/04/17 14:04 05/08/17 05:35 (NovoLOG SUPPLEMENTAL SCALE) 1 ACHS SLIDING SCALE SQ 05/04/17 17:00 05/07/17 20:26 Sodium Chloride 1,000 ml @ 84 mls/hr [id number] IV 05/04/17 17:00 05/08/17 04:25 (Synthroid) 200 mcg DAILY@0600 PO 05/05/17 06:00 05/08/17 05:37 (Synthroid) 25 mcg DAILY@0600 PO 05/05/17 06:00 05/08/17 05:37 (D50w (Vial) Inj) 50 ml UNSCH PRN IV PUSH 05/04/17 16:45 (Glucagon Inj) 1 mg UNSCH PRN OTHER 05/04/17 16:45 (Zofran Inj) 4 mg Q4H PRN IV PUSH 05/04/17 17:00 (Tylenol) 650 mg Q4H PRN PO 05/04/17 17:00 05/08/17 11:01 (Lipitor) 40 mg HS PO 05/04/17 21:00 05/07/17 20:09 (Catapres) 0.1 mg Q6H PRN PO 05/04/17 17:00 (NS Flush) 2 ml UNSCH PRN IV FLUSH 05/05/17 12:30 (NS Flush) 2 ml BID IV FLUSH 05/05/17 12:30 05/07/17 20:08 Octreotide Acetate 500 mcg/ Sodium Chloride 500 ml @ 25 mls/hr Q20H IV 05/05/17 13:02 05/10/17 13:01 05/07/17 13:26 Propofol 100 ml @ 33.9 mls/hr TITRATE PRN IV 05/05/17 16:30 05/06/17 07:34 Fentanyl Citrate 250 ml @ 5 mls/hr TITRATE PRN IV 05/05/17 18:00 05/05/17 19:03 Family History Non contributory Social History Denies ETOH use Physical Exam Vital Signs Vital Signs Date Time Temp Pulse Resp B/P (MAP) Pulse Ox O2 Delivery O2 Flow Rate FiO2 05/08/17 12:00 83 05/08/17 10:00 87 05/08/17 08:00 98.5 90 23 115/71 (86) 95 05/08/17 08:00 90 05/08/17 07:00 97 Room Air 05/08/17 06:00 86 05/08/17 04:00 98.5 91 25 125/62 (83) 95 05/08/17 04:00 91 05/08/17 02:00 90 05/08/17 00:00 92 05/08/17 00:00 98.7 92 22 138/81 (100) 95 05/07/17 22:00 85 05/07/17 20:00 98.6 87 25 116/62 (80) 100 05/07/17 20:00 87 05/07/17 19:00 99 Room Air 05/07/17 18:00 80 05/07/17 16:00 98.2 78 20 110/64 (79) 99 05/07/17 16:00 78 05/07/17 14:00 80 Physical Exam GENERAL: no acute distress SKIN: Warm and dry.. CARDIOVASCULAR: SR on tele RESPIRATORY: No accessory muscle use. GASTROINTESTINAL: Abdomen soft, tenderness to RLQ and LLQ, mild tenderness to RUQ Laboratory Laboratory Tests Test 05/07/17 17:20 05/08/17 07:52 White Blood Count 15.3 18.2 Red Blood Count 2.89 2.93 Hemoglobin 8.9 9.0 Hematocrit 26.4 26.7 Mean Corpuscular Volume 91.2 91.3 Mean Corpuscular Hemoglobin 30.8 30.7 Mean Corpuscular Hemoglobin Concent 33.8 33.6 Red Cell Distribution Width 17.7 17.4 Platelet Count 83 77 Mean Platelet Volume 9.8 9.7 Neutrophils (%) (Auto) 83.5 Lymphocytes (%) (Auto) 7.4 Monocytes (%) (Auto) 6.7 Eosinophils (%) (Auto) 2.2 Basophils (%) (Auto) 0.2 Neutrophils # (Auto) 12.7 Lymphocytes # (Auto) 1.1 Monocytes # (Auto) 1.0 Eosinophils # (Auto) 0.3 Basophils # (Auto) 0.0 CBC Comment AUTO DIFF AUTO DIFF Differential Total Cells Counted 100 100 Neutrophils % (Manual) 89 81 Band Neutrophils % 5 5 Lymphocytes % 2 6 Monocytes % 1 3 Eosinophils % 3 3 Neutrophils # (Manual) 14.4 16.0 Nucleated Red Blood Cells 2 1 Differential Comment FINAL DIFF MANUAL FINAL DIFF MANUAL Platelet Estimate LOW LOW Platelet Morphology Comment NORMAL NORMAL Metamyelocytes 2 Polychromasia 2.1 Blood Urea Nitrogen 19 Creatinine 0.74 Random Glucose 222 Total Protein 5.7 Calcium Level 7.1 Magnesium Level 1.9 Sodium Level 139 Potassium Level 3.8 Chloride Level 108 Carbon Dioxide Level 23.9 Anion Gap 7 Estimat Glomerular Filtration Rate 86 Protein Corrected Calcium 7.8 Result Diagram: 05/08/17 0752 05/08/17 0752 Imaging Last Impressions Venogram 05/05/17 0000 Signed Impressions: Service Date/Time: Friday, May 05, 2017 12:18 - CONCLUSION: The patient has large varicosities centered at the GE junction and along the lesser curvature of the stomach which drained via a gastrorenal shunt. Successful coil embolization was performed. John Hartley Jr., MD Gall Bladder Ultrasound 05/05/17 0000 Signed Impressions: Service Date/Time: Friday, May 05, 2017 09:01 - CONCLUSION: Abnormal gallbladder appearance with stones sludge and wall thickening Donnell Zuluaga MD Chest X-Ray 05/05/17 0000 Signed Impressions: Service Date/Time: Friday, May 05, 2017 18:44 - CONCLUSION: 1. Left central line in superior vena cava without pneumothorax. Endotracheal tube tip at leonor. Terrence Newton MD Abdomen/Pelvis CT 05/04/17 1549 Signed Impressions: Service Date/Time: Thursday, May 04, 2017 17:19 - CONCLUSION: Mobile gallstones with inflammatory changes around the gallbladder Induration around the pancreas Findings are suspicious for pancreatitis without acute cholecystitis. Joe Beaver MD FACR Assessment and Plan Assessment and Plan 42yo F with GI bleed, cholelithiasis and questionable pancreatitis -No surgical intervention at this time, will follow as outpatient -Should the patient condition change, please give us a call Code Status full Discussed Condition With Patient and RN at bedside Attending Statement This patient was examined by myself and Dr. Howell and this note was written on his behalf Zoila Bradshaw May 08, 2017 12:42
[2017-05-08] MEDS ORDERED: DO NOT ADM ANY ANTICOAGULANT DRUGS PRN (14:20)
--- NOTE | 2017-05-08 14:24 | PD.PROCEDR ---
GI Procedure PROCEDURE PERFORMED EGD INDICATION FOR PROCEDURE Follow-up on gastric varices PROCEDURE: The procedure, risks and benefits were discussed with Ms. Villavicencio and informed consent was obtained. Anesthesia sedated her with Diprivan. She was placed in the left lateral decubitus position. EGD: The Pentax videoscope was introduced through the oropharynx and advanced to the second portion of the duodenum under direct visualization. Retroflexion was performed in the stomach. FINDINGS: The esophagus there was one column of a grade 1 esophageal varix otherwise esophageal mucosa unremarkable Stomach there was a large gastric varix in the fundus no blood or bleeding noted from this lesion the gastric mucosa appeared to be diffusely edematous with a cobblestone appearance to it suggestive portal hypertension they were superficial erosions noted in the antrum with one small ulceration this was biopsied just a couple of days ago The duodenum this was normal ESTIMATED BLOOD LOSS: None SPECIMENS REMOVED: None COMPLICATIONS: None IMPRESSION: Esophageal varices Gastric varices Portal hypertensive gastropathy mild to moderate Erosive gastritis with a gastric ulcer in the antrum no stigmata for risk of bleeding PLAN: Continue with current supportive care Liver workup to assess because of cirrhosis Start nadolol 20 mg daily Consider outpatient referral to a tertiary center for evaluation for TIPS or splenorenal shunt EGD in 1 year Shane Rodriguez MD May 08, 2017 14:24
--- NOTE | 2017-05-08 15:48 | HHI.PR ---
Subjective Remarks No new complaints. Pt is tolerating PO intake. Objective Vitals Vital Signs Date Time Temp Pulse Resp B/P (MAP) Pulse Ox O2 Delivery O2 Flow Rate FiO2 05/08/17 14:20 98.0 88 16 118/64 (82) 98 05/08/17 12:40 98.3 88 17 117/60 (79) 94 05/08/17 12:00 98.4 83 20 121/67 (85) 96 05/08/17 12:00 83 05/08/17 10:00 87 05/08/17 08:00 98.5 90 23 115/71 (86) 95 05/08/17 08:00 90 05/08/17 07:00 97 Room Air 05/08/17 06:00 86 05/08/17 04:00 98.5 91 25 125/62 (83) 95 05/08/17 04:00 91 05/08/17 02:00 90 05/08/17 00:00 92 05/08/17 00:00 98.7 92 22 138/81 (100) 95 05/07/17 22:00 85 05/07/17 20:00 98.6 87 25 116/62 (80) 100 05/07/17 20:00 87 05/07/17 19:00 99 Room Air 05/07/17 18:00 80 05/07/17 16:00 98.2 78 20 110/64 (79) 99 05/07/17 16:00 78 Result Diagram: 05/08/17 0752 05/08/17 0752 Imaging Last Impressions Venogram 05/05/17 0000 Signed Impressions: Service Date/Time: Friday, May 05, 2017 12:18 - CONCLUSION: The patient has large varicosities centered at the GE junction and along the lesser curvature of the stomach which drained via a gastrorenal shunt. Successful coil embolization was performed. John Hartley Jr., MD Gall Bladder Ultrasound 05/05/17 0000 Signed Impressions: Service Date/Time: Friday, May 05, 2017 09:01 - CONCLUSION: Abnormal gallbladder appearance with stones sludge and wall thickening Donnell Zuluaga MD Chest X-Ray 05/05/17 0000 Signed Impressions: Service Date/Time: Friday, May 05, 2017 18:44 - CONCLUSION: 1. Left central line in superior vena cava without pneumothorax. Endotracheal tube tip at leonor. Terrence Newton MD Abdomen/Pelvis CT 05/04/17 1549 Signed Impressions: Service Date/Time: Thursday, May 04, 2017 17:19 - CONCLUSION: Mobile gallstones with inflammatory changes around the gallbladder Induration around the pancreas Findings are suspicious for pancreatitis without acute cholecystitis. Joe Beaver MD FACR Objective Remarks General: NAD, AAOx3 Chest: CTA Cardiac: Regular Abd: +BS, soft, obese, +BS x 4, no g/r/r Ext: No edema A/P Problem List: (1) GI bleed ICD Codes: K92.2 - Gastrointestinal hemorrhage, unspecified Status: Acute Plan: GIB/Hemoccult-positive stool Anemia Nausea/vomiting ?hematemesis - Pt is a 42 y/o WF with diabetes mellitus, HTN, hyperlipidemia and hypothyroidism. - [place] [facility] [place] with complaints of N/V and black tarry stools for the last few days. She reported that she has been unable to keep much of any food or fluids down for the last few days. She has some mid to upper abdominal "soreness" which she relates to retching for the last few days. Her last episode of vomiting was this morning prior to coming to the ED and she states that it was dark red. - Pt is chronically on Prednisone and was recently taking Meloxicam up until about a week ago and more recently had been taking Naprosyn. - She was noted to be guaiac positive in the ED - Labs in the ED noted Hgb 11.2/Hct 33.9 - EGD (05/05) which noted erosive gastritis in the antrum and she was noted to have a large bulging of unclear significance with what looks like an ulceration which began to bleed during the procedure and it was felt that this was a gastric varix. The pt had about 1000mL of blood loss and Dr. Rodriguez was unable to apply a clip or inject or do any therapy during the procedure. - Pt was intubated and a second IV was opened and she was started with a 2 unit of packed RBC transfusion - Embolization of gastric varix by IR 05/05 - IV octreotide and pantoprazole drip - Hg 8.6 (05/07), 9.0 (05/08) - Repeat EGD (05/08) with Dr. Rodriguez - Esophageal varices - Gastric varices - Portal hypertensive gastropathy mild to moderate - Erosive gastritis with a gastric ulcer in the antrum no stigmata for risk of bleeding - Liver workup to assess because of cirrhosis, per GI - Start nadolol 20 mg daily - Consider outpatient referral to a tertiary center for evaluation for TIPS or splenorenal shunt - EGD in 1 year - anticipate d/c to home 05/09 repeat CBC now and in AM - Case d/w Dr. Rodriguez. Repeat EGD (05/08) - supportive care - DVT prophylaxis MARIA DEL ROSARIO Dehydration from poor PO intake - Labs at admission with Cr 1.33/BUN 46, GFR 44 - Improving on IVF - Repeat labs (05/04) --> Cr 1.19, BUN 30, GFR 50 Leukocytosis - Likely reactive, pt has been afebrile since admission - Pt received IVF and Zosyn/Vancomycin in the ED we will hold on continuing Abx at this time - Repeat labs this morning with WBC count decreased to 14.9 on 05/[address] indicating possible pancreatitis +/- acute cholecystitis - CT Abd/pelvis with IV Contrast (05/04/17) --> Mobile gallstones with inflammatory changes around the gallbladder, Induration around the pancreas, and findings are suspicious for pancreatitis with or without acute cholecystitis - GB US performed this morning, await results - Lipase at admission was WNL at 237 - Repeat LFTs and Lipase in AM Diabetes mellitus, type 2 - Hold OHA - BS at admission significantly elevated at 527 but she has been unable to tolerated po intake and hasn't taken her meds for the last few days - NovoLog SSI HTN - Hold home meds due to MARIA DEL ROSARIO - BP stable - Clonidine PRN - Monitor Hyperlipidemia - Cont. home meds Hypothyroidism - Cont. home meds (2) MARIA DEL ROSARIO (acute kidney injury) ICD Codes: N17.9 - Acute kidney failure, unspecified Status: Acute (3) Dehydration ICD Codes: E86.0 - Dehydration Status: Acute (4) Nausea & vomiting ICD Codes: R11.2 - Nausea with vomiting, unspecified Status: Acute (5) Diabetes mellitus ICD Codes: E11.9 - Type 2 diabetes mellitus without complications Status: Chronic (6) HTN (hypertension) ICD Codes: I10 - Essential (primary) hypertension Status: Chronic (7) Hyperlipidemia ICD Codes: E78.5 - Hyperlipidemia, unspecified Status: Chronic (8) Hypothyroidism ICD Codes: E03.9 - Hypothyroidism, unspecified Status: Chronic Problem Qualifiers (1) GI bleed: Qualified Codes: K92.2 - Gastrointestinal hemorrhage, unspecified (2) Diabetes mellitus: Bladimir Salguero DO May 08, 2017 15:48
[2017-05-08] MEDS: NADOLOL 20 MG TAB PO SCH (16:27)
[2017-05-08 18:18] LABS: IRON (FE) 31 MCG/DL (50-170)
[2017-05-08 18:20] LABS: FERRITIN 175 NG/ML (8-252)
[2017-05-08] MEDS: ATORVASTATIN 40 MG TAB PO SCH (21:00)
[2017-05-09] VITALS: BP 111/59; PULSE 72; RESP 20; TEMP 98.5; O2SAT 95
[2017-05-09] MEDS: SODIUM CHLOR 0.9% 1000 ML INJ 1,000 ML IV SCH ×2 (04:15→16:10)
[2017-05-09] MEDS: LEVOTHYROXINE SODIUM 200 MCG TAB PO SCH (06:00)
[2017-05-09] MEDS: LEVOTHYROXINE SODIUM 25 MCG TAB PO SCH (06:00)
[2017-05-09 08:00] VITALS: BP 113/63; PULSE 72; RESP 22; TEMP 97.8; O2SAT 96
[2017-05-09] MEDS: INSULIN ASPART SUPPLEMENTAL SCALE SQ SCH ×4 (09:09→20:36)
[2017-05-09] MEDS: SODIUM CHLORIDE 0.9% FLUSH 10 ML FLUSH IV FLUSH SCH ×2 (09:11→20:37)
--- NOTE | 2017-05-09 10:52 | HHI.GIFU ---
Subjective Remarks Pt resting in bed, watching TV. said she had very dark BM this morning. tolerating diet. (Zoë Gonzalez) Objective Vitals I&O Vital Signs Date Time Temp Pulse Resp B/P (MAP) Pulse Ox O2 Delivery O2 Flow Rate FiO2 05/09/17 08:00 97.8 72 22 113/63 (80) 96 05/09/17 00:00 98.5 72 20 111/59 (76) 95 05/08/17 20:11 96.4 68 20 103/64 (77) 96 05/08/17 18:00 72 05/08/17 16:00 98.1 79 20 120/68 (85) 96 05/08/17 16:00 85 05/08/17 15:00 86 16 111/63 (79) 97 Room Air 05/08/17 14:45 84 16 118/67 (84) 98 Room Air 05/08/17 14:30 88 16 118/66 (83) 98 Room Air 05/08/17 14:20 98.0 88 16 118/64 (82) 98 05/08/17 12:40 98.3 88 17 117/60 (79) 94 05/08/17 12:00 98.4 83 20 121/67 (85) 96 05/08/17 12:00 83 I/O 05/08/17 05/08/17 05/08/17 05/09/17 05/09/17 05/09/17 07:00 15:00 23:00 07:00 15:00 23:00 Intake Total 340 ml 100 ml 520 ml Output Total 600 ml 550 ml Balance -260 ml 100 ml -30 ml Intake Oral 240 ml 520 ml IV Total 100 ml 100 ml Output Urine Total 600 ml 550 ml # Bowel Movements 1 1 Laboratory Laboratory Tests Test 05/04/17 14:05 05/04/17 16:00 05/05/17 18:45 05/05/17 18:53 Urine Color LIGHT-YELLOW Urine Turbidity CLEAR Urine pH 5.5 Urine Specific Revloc 1.033 Urine Protein NEG mg/dL Urine Glucose (UA) 1000 mg/dL Urine Ketones 10 mg/dL Urine Occult Blood NEG Urine Nitrite NEG Urine Bilirubin NEG Urine Urobilinogen LESS THAN 2.0 MG/DL Urine Leukocyte Esterase NEG Urine RBC 1 /hpf Urine WBC 1 /hpf Urine Squamous Epithelial Cells <1 /hpf Microscopic Urinalysis Comment CULT NOT INDICATED Lactic Acid Level 3.1 mmol/L Nasal Screen MRSA (PCR) MRSA NOT DETECTED Blood Gas Puncture Site LINE Blood Gas Patient Temperature 98.6 Venous Blood pH 7.38 Venous Blood Partial Pressure CO2 46 mmHg Venous Blood Partial Pressure O2 39 mmHg Venous Blood HCO3 27 mmol/L Venous Blood Oxygen Saturation 69 % Venous Blood Oxygen Content 8.8 Vol % Venous Blood Base Excess 2.0 mmol/L Oxygen Delivery Device VENTILATOR Blood Gas Ventilator Setting 500/12/+5/1.0 Blood Gas Inspired Oxygen 50 % Test 05/05/17 19:00 05/06/17 05:10 05/07/17 06:00 05/07/17 17:20 Prothrombin Time 11.9 SEC Prothromb Time International Ratio 1.2 RATIO Activated Partial Thromboplast Time 20.3 SEC Tear Drop Cells 1+ Lipase 444 U/L Myelocytes 1 % Blood Urea Nitrogen 28 MG/DL Creatinine 0.89 MG/DL Random Glucose 227 MG/DL Total Protein 5.2 GM/DL Albumin 2.0 GM/DL Calcium Level 6.9 MG/DL Alkaline Phosphatase 61 U/L Aspartate Amino Transf (AST/SGOT) 240 U/L Alanine Aminotransferase (ALT/SGPT) 163 U/L Total Bilirubin 1.0 MG/DL Sodium Level 140 MEQ/L Potassium Level 4.0 MEQ/L Chloride Level 108 MEQ/L Carbon Dioxide Level 24.8 MEQ/L Neutrophils (%) (Auto) 83.5 % Lymphocytes (%) (Auto) 7.4 % Monocytes (%) (Auto) 6.7 % Eosinophils (%) (Auto) 2.2 % Basophils (%) (Auto) 0.2 % Neutrophils # (Auto) 12.7 TH/MM3 Lymphocytes # (Auto) 1.1 TH/MM3 Monocytes # (Auto) 1.0 TH/MM3 Eosinophils # (Auto) 0.3 TH/MM3 Basophils # (Auto) 0.0 TH/MM3 Test 05/08/17 07:52 White Blood Count 18.2 TH/MM3 Red Blood Count 2.93 MIL/MM3 Hemoglobin 9.0 GM/DL Hematocrit 26.7 % Mean Corpuscular Volume 91.3 FL Mean Corpuscular Hemoglobin 30.7 PG Mean Corpuscular Hemoglobin Concent 33.6 % Red Cell Distribution Width 17.4 % Platelet Count 77 TH/MM3 Mean Platelet Volume 9.7 FL CBC Comment AUTO DIFF Differential Total Cells Counted 100 Neutrophils % (Manual) 81 % Band Neutrophils % 5 % Lymphocytes % 6 % Monocytes % 3 % Eosinophils % 3 % Neutrophils # (Manual) 16.0 TH/MM3 Metamyelocytes 2 % Nucleated Red Blood Cells 1 /100 WBC Differential Comment FINAL DIFF MANUAL Platelet Estimate LOW Platelet Morphology Comment NORMAL Polychromasia 2.1 % Blood Urea Nitrogen 19 MG/DL Creatinine 0.74 MG/DL Random Glucose 222 MG/DL Total Protein 5.7 GM/DL Calcium Level 7.1 MG/DL Magnesium Level 1.9 MG/DL Sodium Level 139 MEQ/L Potassium Level 3.8 MEQ/L Chloride Level 108 MEQ/L Carbon Dioxide Level 23.9 MEQ/L Anion Gap 7 MEQ/L Estimat Glomerular Filtration Rate 86 ML/MIN Protein Corrected Calcium 7.8 MG/DL Iron Level 31 MCG/DL Ferritin 175 NG/ML Imaging Last Impressions Venogram 05/05/17 0000 Signed Impressions: Service Date/Time: Friday, May 05, 2017 12:18 - CONCLUSION: The patient has large varicosities centered at the GE junction and along the lesser curvature of the stomach which drained via a gastrorenal shunt. Successful coil embolization was performed. John Hartley Jr., MD Gall Bladder Ultrasound 05/05/17 0000 Signed Impressions: Service Date/Time: Friday, May 05, 2017 09:01 - CONCLUSION: Abnormal gallbladder appearance with stones sludge and wall thickening Donnell Zuluaga MD Chest X-Ray 05/05/17 0000 Signed Impressions: Service Date/Time: Friday, May 05, 2017 18:44 - CONCLUSION: 1. Left central line in superior vena cava without pneumothorax. Endotracheal tube tip at leonor. Terrence Newton MD Abdomen/Pelvis CT 05/04/17 1549 Signed Impressions: Service Date/Time: Thursday, May 04, 2017 17:19 - CONCLUSION: Mobile gallstones with inflammatory changes around the gallbladder Induration around the pancreas Findings are suspicious for pancreatitis without acute cholecystitis. Joe Beaver MD FACR Physical Exam HEENT: Normocephalic atraumatic, CHEST: CTA CARDIAC: Regular rate ABDOMEN: obese; nontender, soft, bowel sounds are present in all four quadrants. EXTREMITIES: No clubbing, cyanosis, or edema. SKIN: Normal; no rash; no jaundice. QUILL STRIPPER: AOX3 (Zoë Gonzalez) Assessment and Plan Plan History. pleasant 42-year-old lady with multiple medical problems, admitted with hematemesis and melena and recent use of nonsteroidal anti-inflammatory drugs and prednisone, most likely gastritis or peptic ulcer disease. Abdominal discomfort, abnormal CT suggesting mild pancreatitis, abnormal gallbladder, possible cholecystitis. Elevation of the liver enzymes most likely secondary to mild pancreatitis and cholecystitis. EGD 05/05/17, Found Gastric varices and Erosive gastritis , Sent to the ICU setting, Went to IR for embolization . Right groin access, Large varices around GE junction found which drain largely via the left renal vein. Labs noted bilirubin 2, mild decrease, LFTs AST 213/123 ALT, increase lipase level 444, hemoglobin 10.3 no obvious bleeding. Gallbladder ultrasound showed gallstones sludge. May need to consider GS Venogram successful embolization 05/07/17 patient is now extubated, denies any nausea vomiting or abdominal pain. Taking small sips of clear liquids. No obvious bleeding in the globe and stable at 8.4, Will need repeat endoscopy in a few days 05/09/17 s/p EGD 05/08 found esophageal varices, gastric varices, portal HTN gastropathy, erosive gastritis, gastric ulcer no stigmata. having dark stools. tolerating diet. todays labs pending. liver w/u pending PLAN: - continue nadolol - heart healthy diet - consider referral to tertiary center for TIPS - EGD in 1 y - await liver w/u - f/u with GI after d/c Patient was seen per myself and Dr. Rodriguez, note was written on his behalf (Zoë Gonzalez) Physician Comments Patient seen and examined Agree with above Continue with current supportive care Monitor labs (Shane Rodriguez MD) Zoë Gonzalez May 09, 2017 10:52 Shane Rodriguez MD May 09, 2017 23:34
[2017-05-09 12:00] VITALS: BP 111/64; PULSE 73; RESP 21; TEMP 98.5; O2SAT 97
[2017-05-09 13:00] LABS: HEMOGLOBIN 8.9 GM/DL (11.6-15.3); MEAN CELL VOLUME 91.8 FL (80.0-100.0); MEAN CORPUSCULAR HEMOGLOBIN 30.2 PG (27.0-34.0); MEAN PLATELET VOLUME 9.3 FL (7.0-11.0); PLATELET COUNT 90 TH/MM3 (150-450); RED BLOOD COUNT 2.94 MIL/MM3 (4.00-5.30); RED CELL DISTRIBUTION WIDTH 18.3 % (11.6-17.2); WHITE BLOOD COUNT 15.3 TH/MM3 (4.0-11.0)
[2017-05-09] MEDS: NADOLOL 20 MG TAB PO SCH (13:23)
[2017-05-09] MEDS: ACETAMINOPHEN 325 MG TAB PO PRN ×2 (13:24→20:28)
[2017-05-09 13:27] LABS: BICARBONATE 24.2 MEQ/L (21.0-32.0); CALCIUM 7.3 MG/DL (8.5-10.1); CREATININE 0.8 MG/DL (0.50-1.00); TOTAL BILIRUBIN ADULT 1.7 MG/DL (0.2-1.0); TOTAL PROTEIN 5.8 GM/DL (6.4-8.2)
[2017-05-09 16:00] VITALS: BP 120/66; PULSE 68; RESP 20; TEMP 97.7; O2SAT 100
--- NOTE | 2017-05-09 18:46 | HHI.PR ---
Subjective Remarks Tolerating PO intake. Objective Vitals Vital Signs Date Time Temp Pulse Resp B/P (MAP) Pulse Ox O2 Delivery O2 Flow Rate FiO2 05/09/17 16:00 97.7 68 20 120/66 (84) 100 05/09/17 12:00 98.5 73 21 111/64 (80) 97 05/09/17 09:15 Room Air 05/09/17 08:00 97.8 72 22 113/63 (80) 96 05/09/17 00:00 98.5 72 20 111/59 (76) 95 05/08/17 20:11 96.4 68 20 103/64 (77) 96 05/09/17 05/09/17 05/10/17 15:00 23:00 07:00 Intake Total 2 ml Balance 2 ml IV Total 2 ml Result Diagram: 05/09/17 1228 05/09/17 1228 Imaging Last Impressions Venogram 05/05/17 0000 Signed Impressions: Service Date/Time: Friday, May 05, 2017 12:18 - CONCLUSION: The patient has large varicosities centered at the GE junction and along the lesser curvature of the stomach which drained via a gastrorenal shunt. Successful coil embolization was performed. John Hartley Jr., MD Gall Bladder Ultrasound 05/05/17 0000 Signed Impressions: Service Date/Time: Friday, May 05, 2017 09:01 - CONCLUSION: Abnormal gallbladder appearance with stones sludge and wall thickening Donnell Zuluaga MD Chest X-Ray 05/05/17 0000 Signed Impressions: Service Date/Time: Friday, May 05, 2017 18:44 - CONCLUSION: 1. Left central line in superior vena cava without pneumothorax. Endotracheal tube tip at leonor. Terrence Newton MD Abdomen/Pelvis CT 05/04/17 1549 Signed Impressions: Service Date/Time: Thursday, May 04, 2017 17:19 - CONCLUSION: Mobile gallstones with inflammatory changes around the gallbladder Induration around the pancreas Findings are suspicious for pancreatitis without acute cholecystitis. Joe Beaver MD FACR Objective Remarks General: NAD, AAOx3 Chest: CTA Cardiac: Regular Abd: +BS, soft, obese, +BS x 4, no g/r/r Ext: No edema A/P Problem List: (1) GI bleed ICD Codes: K92.2 - Gastrointestinal hemorrhage, unspecified Status: Acute Plan: GIB/Hemoccult-positive stool Anemia Nausea/vomiting ?hematemesis - Pt is a 42 y/o WF with diabetes mellitus, HTN, hyperlipidemia and hypothyroidism. - She presented to the ED at [facility] [place] on 05/04/17 with complaints of N/V and black tarry stools for the last few days. She reported that she has been unable to keep much of any food or fluids down for the last few days. She has some mid to upper abdominal "soreness" which she relates to retching for the last few days. Her last episode of vomiting was this morning prior to coming to the ED and she states that it was dark red. - Pt is chronically on Prednisone and was recently taking Meloxicam up until about a week ago and more recently had been taking Naprosyn. - She was noted to be guaiac positive in the ED - Labs in the ED noted Hgb 11.2/Hct 33.9 - EGD (05/05) which noted erosive gastritis in the antrum and she was noted to have a large bulging of unclear significance with what looks like an ulceration which began to bleed during the procedure and it was felt that this was a gastric varix. The pt had about 1000mL of blood loss and Dr. Rodriguez was unable to apply a clip or inject or do any therapy during the procedure. - Pt was intubated and a second IV was opened and she was started with a 2 unit of packed RBC transfusion - Embolization of gastric varix by IR 05/05 - IV octreotide and pantoprazole drip - Hg 8.6 (05/07), 9.0 (05/08) - Repeat EGD (05/08) with Dr. Rodriguez - Esophageal varices - Gastric varices - Portal hypertensive gastropathy mild to moderate - Erosive gastritis with a gastric ulcer in the antrum no stigmata for risk of bleeding - Liver workup to assess because of cirrhosis, per GI - nadolol 20 mg daily - Consider outpatient referral to a tertiary center for evaluation for TIPS or splenorenal shunt - EGD in 1 year - Hg stable - repeat in AM - anticipate d/c to home 05/10 repeat CBC now and in AM - Case d/w Dr. Rodriguez. Repeat EGD (05/08) - supportive care - DVT prophylaxis MARIA DEL ROSARIO Dehydration from poor PO intake - Labs at admission with Cr 1.33/BUN 46, GFR 44 - Improving on IVF - Repeat labs (05/04) --> Cr 1.19, BUN 30, GFR 50 Leukocytosis - Likely reactive, pt has been afebrile since admission - Pt received IVF and Zosyn/Vancomycin in the ED we will hold on continuing Abx at this time - Repeat labs this morning with WBC count decreased to 14.9 on 05/[address] indicating possible pancreatitis +/- acute cholecystitis - CT Abd/pelvis with IV Contrast (05/04/17) --> Mobile gallstones with inflammatory changes around the gallbladder, Induration around the pancreas, and findings are suspicious for pancreatitis with or without acute cholecystitis - GB US performed this morning, await results - Lipase at admission was WNL at 237 - Repeat LFTs and Lipase in AM Diabetes mellitus, type 2 - BS at admission significantly elevated at 527 but she has been unable to tolerated po intake and hasn't taken her meds for the last few days - NovoLog SSI - will need improved blood sugar control prior to discharge - resume glucotrol - anticipate d/c 05/10 HTN - Hold home meds due to MARIA DEL ROSARIO - BP stable - Clonidine PRN - Monitor Hyperlipidemia - Cont. home meds Hypothyroidism - Cont. home meds (2) MARIA DEL ROSARIO (acute kidney injury) ICD Codes: N17.9 - Acute kidney failure, unspecified Status: Acute (3) Dehydration ICD Codes: E86.0 - Dehydration Status: Acute (4) Nausea & vomiting ICD Codes: R11.2 - Nausea with vomiting, unspecified Status: Acute (5) Diabetes mellitus ICD Codes: E11.9 - Type 2 diabetes mellitus without complications Status: Chronic (6) HTN (hypertension) ICD Codes: I10 - Essential (primary) hypertension Status: Chronic (7) Hyperlipidemia ICD Codes: E78.5 - Hyperlipidemia, unspecified Status: Chronic (8) Hypothyroidism ICD Codes: E03.9 - Hypothyroidism, unspecified Status: Chronic Problem Qualifiers (1) GI bleed: Qualified Codes: K92.2 - Gastrointestinal hemorrhage, unspecified (2) Diabetes mellitus: Bladimir Salguero DO May 09, 2017 18:45
[2017-05-09 20:00] VITALS: BP 110/66; PULSE 74; RESP 18; TEMP 98.3; O2SAT 97
[2017-05-09] MEDS: ATORVASTATIN 40 MG TAB PO SCH (20:23)
[2017-05-10] VITALS: BP 112/61; PULSE 71; RESP 18; TEMP 98.3; O2SAT 99
[2017-05-10] MEDS: LEVOTHYROXINE SODIUM 25 MCG TAB PO SCH (06:46)
[2017-05-10] MEDS: ACETAMINOPHEN 325 MG TAB PO PRN ×2 (06:46→14:00)
[2017-05-10] MEDS: glipiZIDE 10 MG TAB PO SCH ×2 (06:46→17:39)
[2017-05-10] MEDS: LEVOTHYROXINE SODIUM 200 MCG TAB PO SCH (06:46)
[2017-05-10 08:00] VITALS: BP 107/59; PULSE 76; RESP 18; TEMP 98.2; O2SAT 95
[2017-05-10] MEDS: NADOLOL 20 MG TAB PO SCH (08:38)
[2017-05-10] MEDS: INSULIN ASPART SUPPLEMENTAL SCALE SQ SCH ×3 (08:39→17:45)
--- NOTE | 2017-05-10 11:50 | HHI.GIFU ---
Subjective Remarks Sleeping, family member in room also sleeping but arouses to verbal stimuli Hemoglobin 8.9, no obvious bleeding Patient denies any nausea, vomiting or abdominal pain Afebrile (Mallory Feliciano) Objective Vitals I&O Vital Signs Date Time Temp Pulse Resp B/P (MAP) Pulse Ox O2 Delivery O2 Flow Rate FiO2 05/10/17 08:00 98.2 76 18 107/59 (75) 95 05/10/17 00:00 98.3 71 18 112/61 (78) 99 05/09/17 20:00 98.3 74 18 110/66 (81) 97 05/09/17 16:00 97.7 68 20 120/66 (84) 100 05/09/17 12:00 98.5 73 21 111/64 (80) 97 I/O 05/09/17 05/09/17 05/09/17 05/10/17 05/10/17 05/10/17 07:00 15:00 23:00 07:00 15:00 23:00 Intake Total 2 ml 962 ml 480 ml Balance 2 ml 962 ml 480 ml Intake Oral 960 ml 480 ml IV Total 2 ml 2 ml # Voids 4 2 # Bowel Movements 1 0 Laboratory Laboratory Tests Test 05/09/17 12:28 White Blood Count 15.3 Red Blood Count 2.94 Hemoglobin 8.9 Hematocrit 27.0 Mean Corpuscular Volume 91.8 Mean Corpuscular Hemoglobin 30.2 Mean Corpuscular Hemoglobin Concent 33.0 Red Cell Distribution Width 18.3 Platelet Count 90 Mean Platelet Volume 9.3 Blood Urea Nitrogen 21 Creatinine 0.80 Random Glucose 281 Total Protein 5.8 Albumin 2.0 Calcium Level 7.3 Alkaline Phosphatase 97 Aspartate Amino Transf (AST/SGOT) 114 Alanine Aminotransferase (ALT/SGPT) 135 Total Bilirubin 1.7 Sodium Level 136 Potassium Level 3.3 Chloride Level 103 Carbon Dioxide Level 24.2 Anion Gap 9 Estimat Glomerular Filtration Rate 78 Protein Corrected Calcium 8.0 Tumor Marker Alpha Fetoprotein 6.2 Hepatitis A IgM Antibody NONREACTIVE Hepatitis B Surface Antigen REACTIVE Hepatitis B Core IgM Antibody NONREACTIVE Hepatitis C IgG Antibody NONREACTIVE Imaging Last Impressions Venogram 05/05/17 0000 Signed Impressions: Service Date/Time: Friday, May 05, 2017 12:18 - CONCLUSION: The patient has large varicosities centered at the GE junction and along the lesser curvature of the stomach which drained via a gastrorenal shunt. Successful coil embolization was performed. John Hartley Jr., MD Gall Bladder Ultrasound 05/05/17 0000 Signed Impressions: Service Date/Time: Friday, May 05, 2017 09:01 - CONCLUSION: Abnormal gallbladder appearance with stones sludge and wall thickening Donnell Zuluaga MD Chest X-Ray 05/05/17 0000 Signed Impressions: Service Date/Time: Friday, May 05, 2017 18:44 - CONCLUSION: 1. Left central line in superior vena cava without pneumothorax. Endotracheal tube tip at leonor. Terrence Newton MD Abdomen/Pelvis CT 05/04/17 1549 Signed Impressions: Service Date/Time: Thursday, May 04, 2017 17:19 - CONCLUSION: Mobile gallstones with inflammatory changes around the gallbladder Induration around the pancreas Findings are suspicious for pancreatitis without acute cholecystitis. Joe Beaver MD FACR Physical Exam HEENT: Normocephalic atraumatic, CHEST: Essentially clear without rhonchi CARDIAC: Regular rate and rhythm ABDOMEN: Large, round, obese; nontender, soft, bowel sounds are present in all four quadrants. EXTREMITIES: No clubbing, cyanosis, or edema. SKIN: Normal; no rash; no jaundice. [employer]: AOX[employer], answers questions appropriately (Mallory Feliciano) Assessment and Plan Plan History. pleasant 42-year-old lady with multiple medical problems, admitted with hematemesis and melena and recent use of nonsteroidal anti-inflammatory drugs and prednisone, most likely gastritis or peptic ulcer disease. Abdominal discomfort, abnormal CT suggesting mild pancreatitis, abnormal gallbladder, possible cholecystitis. Elevation of the liver enzymes most likely secondary to mild pancreatitis and cholecystitis. EGD 05/05/17, Found Gastric varices and Erosive gastritis , Sent to the ICU setting, Went to IR for embolization . Right groin access, Large varices around GE junction found which drain largely via the left renal vein. Labs noted bilirubin 2, mild decrease, LFTs AST 213/123 ALT, increase lipase level 444, hemoglobin 10.3 no obvious bleeding. Gallbladder ultrasound showed gallstones sludge. May need to consider GS Venogram successful embolization 05/07/17 patient is now extubated, denies any nausea vomiting or abdominal pain. Taking small sips of clear liquids. No obvious bleeding in the globe and stable at 8.4, Will need repeat endoscopy in a few days 05/09/17 s/p EGD 05/08 found esophageal varices, gastric varices, portal HTN gastropathy, erosive gastritis, gastric ulcer no stigmata. having dark stools. tolerating diet. todays labs pending. liver w/u pending 2017 hemoglobin 8.9., States appetite good without any problems. Denies any nausea vomiting or abdominal pain. Sleeping this a.m., noted lab hepatitis B reactive, recheck pending. Other liver workup labs still pending. PLAN: Diet heart healthy Continue nadolol Anti-emetics as needed consider referral to tertiary center for TIPS EGD in 1 y await liver w/u f/u with GI after d/c Patient was seen per myself and Dr. Rodriguez, note was written on his behalf (Mallory Feliciano) Physician Comments Patient seen and examined Agree with above Continue with current supportive care Monitor labs Labs reveal hepatitis B surface antigen positive We will be checking for hepatitis B DNA and alpha-fetoprotein (Shane Rodriguez MD) Mallory Feliciano May 10, 2017 11:50 Shane Rodriguez MD May 10, 2017 15:49
[2017-05-10 12:00] VITALS: BP 118/58; PULSE 71; RESP 18; TEMP 98.5; O2SAT 99
[2017-05-10] MEDS: SODIUM CHLORIDE 0.9% FLUSH 10 ML FLUSH IV FLUSH SCH (13:59)
[2017-05-10 14:23] LABS: SMOOTH MUSCLE TOTAL AUTOABS Negative (Negative)
[2017-05-10] MEDS ORDERED: NADO1TAB16 PO (14:39)
--- NOTE | 2017-05-10 14:53 | HHI.DS ---
Discharge Summary Admission Date May 04, 2017 at 16:12 Discharge Date: May 10, 2017 Admitting Diagnosis GI bleed, leukocytosis, hyperglycemia, MARIA DEL ROSARIO (1) GI bleed Diagnosis: Principal ICD Codes: K92.2 - Gastrointestinal hemorrhage, unspecified Status: Acute (2) [place] ROSARIO (acute kidney injury) Diagnosis: Principal ICD Codes: N17.9 - Acute kidney failure, unspecified Status: Acute (3) Dehydration Diagnosis: Principal ICD Codes: E86.0 - Dehydration Status: Acute (4) Nausea & vomiting Diagnosis: Principal ICD Codes: R11.2 - Nausea with vomiting, unspecified Status: Acute (5) Diabetes mellitus Diagnosis: Secondary ICD Codes: E11.9 - Type 2 diabetes mellitus without complications Status: Chronic (6) HTN (hypertension) Diagnosis: Secondary ICD Codes: I10 - Essential (primary) hypertension Status: Chronic (7) Hyperlipidemia ICD Codes: E78.5 - Hyperlipidemia, unspecified Status: Chronic (8) Hypothyroidism Diagnosis: Secondary ICD Codes: E03.9 - Hypothyroidism, unspecified Status: Chronic Consultants Dr. Shane Rodriguez, Gastroenterology Brief History Mrs. Kramer is a pleasant 42 y/o WF with Diabetes mellitus, HTN, hyperlipidemia and hypothyroidism. She presented to the ED at [facility] on 05/04/17 with complaints of N/V and black tarry stools for the last few days. She reported that she has been unable to keep much of any food or fluids down for the last few days. She has had subjective fevers and chills. She has some mid to upper abdominal "soreness" which she relates to retching for the last few days. Her last episode of vomiting was this morning prior to coming to the ED and she states that it was dark red. Denies any previous similar episodes. She denies any alcohol or tobacco. Pt takes Prednisone 10mg po daily for RA and last took it . She also noted that she had been on Meloxicam 15mg once daily for her RA which was started about one month which she stopped about 1 week ago. She was seen at [facility] on 04/29/17 with a possible allergic reaction to something (not sure what it was) and had swelling on the left side of her lip/ face and was prescribed a prednisone taper and was also prescribed Keflex and Naprosyn on 04/29/17 for possible cellulitis and states that she took the Naprosyn until the N/V started. She was noted to be guaiac positive in the ED. She denies any reflux, dysphagia, constipation, diarrhea, chest pain, SOB, palpitations, dizziness or weakness. CBC/BMP: 05/09/17 1228 05/09/17 1228 Significant Findings Laboratory Tests Test 05/07/17 17:20 05/08/17 07:52 05/09/17 12:28 White Blood Count 15.3 TH/MM3 (4.0-11.0) 18.2 TH/MM3 (4.0-11.0) 15.3 TH/MM3 (4.0-11.0) Red Blood Count 2.89 MIL/MM3 (4.00-5.30) 2.93 MIL/MM3 (4.00-5.30) 2.94 MIL/MM3 (4.00-5.30) Hemoglobin 8.9 GM/DL (11.6-15.3) 9.0 GM/DL (11.6-15.3) 8.9 GM/DL (11.6-15.3) Hematocrit 26.4 % (35.0-46.0) 26.7 % (35.0-46.0) 27.0 % (35.0-46.0) Red Cell Distribution Width 17.7 % (11.6-17.2) 17.4 % (11.6-17.2) 18.3 % (11.6-17.2) Platelet Count 83 TH/MM3 (150-450) 77 TH/MM3 (150-450) 90 TH/MM3 (150-450) Neutrophils (%) (Auto) 83.5 % (16.0-70.0) Lymphocytes (%) (Auto) 7.4 % (9.0-44.0) Neutrophils # (Auto) 12.7 TH/MM3 (1.8-7.7) Monocytes # (Auto) 1.0 TH/MM3 (0-0.9) Neutrophils % (Manual) 89 % (16-70) 81 % (16-70) Lymphocytes % 2 % (9-44) 6 % (9-44) Neutrophils # (Manual) 14.4 TH/MM3 (1.8-7.7) 16.0 TH/MM3 (1.8-7.7) Nucleated Red Blood Cells 2 /100 WBC (0-0) 1 /100 WBC (0-0) Platelet Estimate LOW (NORMAL) LOW (NORMAL) Metamyelocytes 2 % (0-1) Polychromasia 2.1 % (0.0-1.9) Blood Urea Nitrogen 19 MG/DL (7-18) 21 MG/DL (7-18) Random Glucose 222 MG/DL (74-106) 281 MG/DL (74-106) Total Protein 5.7 GM/DL (6.4-8.2) 5.8 GM/DL (6.4-8.2) Calcium Level 7.1 MG/DL (8.5-10.1) 7.3 MG/DL (8.5-10.1) Chloride Level 108 MEQ/L (98-107) Estimat Glomerular Filtration Rate 86 ML/MIN (>89) 78 ML/MIN (>89) Protein Corrected Calcium 7.8 MG/DL (8.5-10.1) 8.0 MG/DL (8.5-10.1) Iron Level 31 MCG/DL (50-170) Albumin 2.0 GM/DL (3.4-5.0) Aspartate Amino Transf (AST/SGOT) 114 U/L (15-37) Alanine Aminotransferase (ALT/SGPT) 135 U/L (10-53) Total Bilirubin 1.7 MG/DL (0.2-1.0) Potassium Level 3.3 MEQ/L (3.5-5.1) Hepatitis B Surface Antigen REACTIVE (NONREACTIVE) PE at Discharge General: NAD, AAOx3 Chest: CTA Cardiac: Regular Abd: +BS, soft, obese, +BS x 4, no g/r/r Ext: No edema Hospital Course (1) GI bleed ICD Codes: K92.2 - Gastrointestinal hemorrhage, unspecified Status: Acute Plan: GIB/Hemoccult-positive stool Anemia Nausea/vomiting ?hematemesis - Pt is a 42 y/o WF with diabetes mellitus, HTN, hyperlipidemia and hypothyroidism. - She presented to the ED at [facility] on 05/04/17 with complaints of N/V and black tarry stools for the last few days. She reported that she has been unable to keep much of any food or fluids down for the last few days. She has some mid to upper abdominal "soreness" which she relates to retching for the last few days. Her last episode of vomiting was this morning prior to coming to the ED and she states that it was dark red. - Pt is chronically on Prednisone and was recently taking Meloxicam up until about a week ago and more recently had been taking Naprosyn. - She was noted to be guaiac positive in the ED - Labs in the ED noted Hgb 11.2/Hct 33.9 - EGD (05/05) which noted erosive gastritis in the antrum and she was noted to have a large bulging of unclear significance with what looks like an ulceration which began to bleed during the procedure and it was felt that this was a gastric varix. The pt had about 1000mL of blood loss and Dr. Rodriguez was unable to apply a clip or inject or do any therapy during the procedure. - Pt was intubated and a second IV was opened and she was started with a 2 unit of packed RBC transfusion - Embolization of gastric varix by IR 05/05 - IV octreotide and pantoprazole drip - Hg 8.6 (05/07), 9.0 (05/08) - Repeat EGD (05/08) with Dr. Rodriguez - Esophageal varices - Gastric varices - Portal hypertensive gastropathy mild to moderate - Erosive gastritis with a gastric ulcer in the antrum no stigmata for risk of bleeding - Liver workup to assess because of cirrhosis, per GI - nadolol 20 mg daily - Consider outpatient referral to a tertiary center for evaluation for TIPS or splenorenal shunt - EGD in 1 year - Hg stable - repeat in AM - discharge to home [place] ROSARIO Dehydration from poor PO intake - Labs at admission with Cr 1.33/BUN 46, GFR 44 - Improving on IVF - Repeat labs (05/04) --> Cr 1.19, BUN 30, GFR 50 Leukocytosis - Likely reactive, pt has been afebrile since admission - Pt received IVF and Zosyn/Vancomycin in the ED we will hold on continuing Abx at this time - Repeat labs this morning with WBC count decreased to 14.9 on 05/[address] indicating possible pancreatitis +/- acute cholecystitis - CT Abd/pelvis with IV Contrast (05/04/17) --> Mobile gallstones with inflammatory changes around the gallbladder, Induration around the pancreas, and findings are suspicious for pancreatitis with or without acute cholecystitis - GB US performed this morning, await results - Lipase at admission was WNL at 237 Diabetes mellitus, type 2 - BS at admission significantly elevated at 527 but she has been unable to tolerated po intake and hasn't taken her meds for the last few days - NovoLog SSI - glucotrol 10mg BID - start levemir 10 units qPM, This can be titrated outpt with pt's PCP - Pt given prescription for diabetic supplies HTN - Hold home meds due to MARIA [place] ROSARIO - BP stable - Clonidine PRN - Monitor Hyperlipidemia - Cont. home meds Hypothyroidism - Cont. home meds Pt Condition on Discharge: Stable Discharge Disposition: Discharge Home Discharge Instructions DIET: Follow Instructions for: Heart Healthy Diet, Diabetic Diet Activities you can perform: Regular-No Restrictions Activities to Avoid: Strenuous Activity Follow up Referrals: Gastroenterology - 2 Weeks with Vicki Bailey MD PCP Follow-up - [address] Pride New Medications: Insulin Detemir Inj (Levemir Inj) 1,000 unit/ 10 ML Vial 10 UNITS SQ HS for Blood Sugar Management, #1 VIAL 0 Refills Do not mix with any other Insulin. Nadolol (Corgard) 20 Mg Tab 20 MG PO DAILY for liver failure, #30 TAB 0 Refills Continued Medications: Glipizide (Glipizide) 5 Mg Tab 10 MG PO BIDAC for Blood Sugar Management, #60 TAB 0 Refills Take 30 minutes before a meal Levothyroxine Sodium (Synthroid) 25 Mcg Tab 225 MCG PO DAILY for hypothyroid, TAB Discontinued Medications: Losartan (Losartan) 25 Mg Tab 50 MG PO DAILY for Blood Pressure Management, #30 TAB 0 Refills Prednisone (Prednisone) 10 Mg Tab 10 MG PO DAILY, TAB 0 Refills Rosuvastatin (Rosuvastatin) 10 Mg Tab 20 MG PO HS for Cholesterol Management, TAB 0 Refills Triamterene-Hydrochlorothiazide (Triamterene-Hydrochlorothiazide) 75-50 Mg Tab 1 TAB PO DAILY, #30 TAB 0 Refills Bladimir Salguero DO May 10, 2017 14:53
[2017-05-10] MEDS ORDERED: LEVEMIR SQ (15:23)
--- NOTE | 2017-05-10 15:25 | HHI.DCPOC ---
Discharge Care Plan Diagnosis: (1) GI bleed (2) Diabetes mellitus (3) Dehydration (4) Nausea & vomiting Goals to Promote Your Health * To prevent worsening of your condition and complications * To maintain your health at the optimal level Directions to Meet Your Goals Take your medications as prescribed Follow your dietary instruction Follow activity as directed Keep your appointments as scheduled Take your immunizations and boosters as scheduled If your symptoms worsen call your PCP, if no PCP go to Urgent Care Center or Emergency Room Smoking is Dangerous to Your Health. Avoid second hand smoke Call the 24-hour hour crisis hotline for domestic abuse at Bladimir Salguero DO May 10, 2017 15:25
[2017-05-10 15:42] VITALS: BP 120/57; PULSE 74; RESP 18; TEMP 98.3; O2SAT 98
[2017-05-10] MEDS ORDERED: INSULIN DETEMIR 100 UNITS/ML VIAL SQ ONE (16:00)
[2017-05-13 11:53] LABS: MITOCHONDRIAL ABS LESS THAN 20.0 U (<=20.0)
[2017-05-13 17:51] LABS: HEPATITIS B SAG SCREEN NONREACTIVE (NON-REACTIV)
== END 2017-05-10 19:15 | disposition home or self-care (01) | DRG 356 ==
LOC: NEPE 13:26 → NEDA 16:12 → N07A 18:09 → N03B 05-05 14:33 → HOCB 05-08 18:40 → N07A 05-09 19:16 → N07B 05-09 22:52
PROVIDERS: ADMIT Hospitalist; ATTEND Hospitalist
PROC: 06L23DZ Occlusion of Gastric Vein with Intraluminal Device, Percutaneous Approach (ICD-10-PCS; principal; 2017-05-04)
PROC: 06L Lower Veins, Occlusion (ICD-10-PCS; 2017-05-04)
PROC: B51 Imaging, Veins, Fluoroscopy (ICD-10-PCS; 2017-05-04)
PROC: 30233N1 Transfusion of Nonautologous Red Blood Cells into Peripheral Vein, Percutaneous Approach (ICD-10-PCS; 2017-05-05)
PROC: 02HV33Z Insertion of Infusion Device into Superior Vena Cava, Percutaneous Approach (ICD-10-PCS; 2017-05-05)
PROC: 0DB78ZX Excision of Stomach, Pylorus, Via Natural or Artificial Opening Endoscopic, Diagnostic (ICD-10-PCS; 2017-05-05)
PROC: 0BH17EZ Insertion of Endotracheal Airway into Trachea, Via Natural or Artificial Opening (ICD-10-PCS; 2017-05-05)
PROC: 5A1935Z Respiratory Ventilation, Less than 24 Consecutive Hours (ICD-10-PCS; 2017-05-05)
PROC: 0DJ08ZZ Inspection of Upper Intestinal Tract, Via Natural or Artificial Opening Endoscopic (ICD-10-PCS; 2017-05-08)
DX: K92.2 Gastrointestinal hemorrhage, unspecified (principal); R57.8 Other shock; J96.00 Acute respiratory failure, unspecified whether with hypoxia or hypercapnia; N17.9 Acute kidney failure, unspecified; Z68.42 Body mass index [BMI] 45.0-49.9, adult; E11.65 Type 2 diabetes mellitus with hyperglycemia; K76.6 Portal hypertension; K85.90 Acute pancreatitis without necrosis or infection, unspecified; K80.10 Calculus of gallbladder with chronic cholecystitis without obstruction; D62 Acute posthemorrhagic anemia; E66.01 Morbid (severe) obesity due to excess calories; I86.4 Gastric varices; M06.9 Rheumatoid arthritis, unspecified; I10 Essential (primary) hypertension; E78.5 Hyperlipidemia, unspecified; E03.9 Hypothyroidism, unspecified; L40.9 Psoriasis, unspecified; E86.0 Dehydration; I85.00 Esophageal varices without bleeding; K31.89 Other diseases of stomach and duodenum; K25.9 Gastric ulcer, unspecified as acute or chronic, without hemorrhage or perforation; K74.60 Unspecified cirrhosis of liver; M10.9 Gout, unspecified; R00.0 Tachycardia, unspecified; Z79.52 Long term (current) use of systemic steroids; Z79.84 Long term (current) use of oral hypoglycemic drugs
CPT/HCPCS: 31500; 36012; 36430; 36556; 37241; 71045; 74177; 75774; 75831; 76705; 80048; 80053; 80074; 81001; 82105; 82390; 82728; 82805; 82948; 83520; 83540; 83605; 83690; 83735; 84155; 84703; 85007; 85014; 85018; 85025; 85027; 85610; 85730; 86038; 86255; 86850; 86900; 86901; 86920; 87341; 87641; 88305; 88312; 94002; 94003; 94150; 96365; 96366; 96368; 96375; C1769; C1887; C1894; C9113; J0330; J1815; J2250; J2270; J2354; J2370; J2405; J2543; J3010; J3370; J7030; J7040; J7050; J7120; P9016; Q9967

== ENCOUNTER 2017-06-26 23:54 | Emergency (ER) | END 2017-06-27 04:00 | disposition home or self-care (01) | DX: N30.00 Acute cystitis without hematuria (principal); E11.9 Type 2 diabetes mellitus without complications; Z79.4 Long term (current) use of insulin ==

== ENCOUNTER → 2017-06-30 | Day surgery (SDC) | payer MEDICARE, OTHER ==
[~2017-06-30] VITALS: Ht 162.6 cm; Wt 107.8 kg
[~2017-06-30] MED LIST changes: +*HYDROmorphone PF 0.5 MG/0.5 ML PERIprocedure ONLY ONE; +*morphine SULFATE 4 MG/ML PERIprocedure ONLY ONE; +ACETAMINOPHEN 1000 MG/100 ML 100 ML IV ONE; +ACETAMINOPHEN 1000 MG/100 ML 100 ML IV SCH; +BUPIVACAINE/EPINEPHRINE 0.5% PF 10 ML VIAL ONE; -BUPR150T3 PO; +CHLORHEXIDINE GLUCONATE 2 % 1 PACK (2 CLOTHS) TOPICAL PRN; -CLIN300C5 PO; +DO NOT ADM ANY ANTICOAGULANT DRUGS PRN; -EMPA1TAB PO; -GABA300C5 PO; +GLYCOPYRROLATE 1 MG/5 ML SYRINGE IV PUSH ONE; +HYDROmorphone HCL 2 MG TAB PO PRN; +INSU1INJ14 SQ; +LACTATED RINGER'S 1000 ML INJ 1,000 ML IV ONE; +LACTATED RINGER'S 1000 ML IV PRN; +LEVA500T33 PO; +LEVO50TA4 PO; +LIDOCAINE HCL 1% PF 5 ML SYRINGE OTHER ONE; -LOSA25TA PO; -MELO15TA20 PO; +METOPROLOL TARTRATE 25 MG TAB PO PRN; +MIDAZOLAM HCL 2 MG/2 ML VIAL ONE; +MORPHINE SULFATE 4 MG/ML INJ IV PUSH PRN; +NADO1TAB16 PO; +NEOSTIGMINE 5 MG/5 ML SYRINGE IV PUSH ONE; +NORC5TAB PO; +ONDANSETRON HCL 4 MG/2 ML VIAL IV PUSH PRN; +ONDANSETRON HCL 4 MG/2 ML VIAL IV PUSH SCH; +PHENYLEPH/NS 1000 MCG/10 ML SYR IV ONE; +POVIDONE IODINE 5% (ANTISEPSIS KIT) 4 APPLICATIONS EACH NARE PRN; -PRED10 PO; +PROP10TA6 PO; +PROPOFOL 200 MG/20 ML AMP IV ONE; +ROCURONIUM INJ 50 MG/5 ML SYRINGE IV PUSH ONE; -ROSU1TAB6 PO; +SODIUM CHLORID 0.9% 500 ML IV PRN; -SYNT25TA PO; -TRIA1TAB5 PO; +ceFAZolin 2 GM PREMIX 50 ML IV SCH; +metroNIDAZOLE 500 MG INJ 100 ML IV SCH
[2017-06-30 12:30] VITALS: BP 89/53; PULSE 77; RESP 18; TEMP 96.7; O2SAT 95
--- NOTE | 2017-07-20 18:34 | MP ---
cc: Manoj Howell MD DATE OF OPERATION: 06/30/2017 PREOPERATIVE DIAGNOSIS: Cholelithiasis with recent gallstone pancreatitis, rule out cirrhosis. POSTOPERATIVE DIAGNOSIS: Cholelithiasis with recent gallstone pancreatitis, rule out cirrhosis. PROCEDURE PERFORMED: 1. Laparoscopic cholecystectomy. 2. Jefry-Cut liver biopsy. SURGEON: Manoj Howell MD ANESTHESIA: General endotracheal. ESTIMATED BLOOD LOSS: Scant. FINDINGS: The patient had a nodular-appearing liver with a dilated blood vessel around the hiatus and in omentum. SPECIMEN: Gallbladder, liver biopsy. COMPLICATIONS: None. DESCRIPTION OF PROCEDURE: The patient was brought to the operating room, placed on the operating table in supine position. Bilateral sequential inflation device placed on lower extremities. General anesthesia instituted and antibiotics initiated. Abdomen was prepped and draped sterilely. The periumbilical region anesthetized with 0.25% Marcaine with epinephrine. A skin incision was made, 5 mm Optiview port placed under direct vision and pneumoperitoneum created. Under direct vision, a 12 mm subxiphoid port and two 5 mm right upper quadrant ports were placed. Prior to placement of all ports, the skin and peritoneum were anesthetized with 0.25% Marcaine with epinephrine. The patient was placed in reverse Trendelenburg position, right side up. Findings as above. The gallbladder retracted into the upper abdomen. Infundibulum retracted. Calot triangle opened. Hepatoduodenal ligament incised. The cystic artery was identified. It was circumferentially dissected. It was ligated with Hemoclips and divided between the clips. The cystic duct was identified, circumferentially dissected, ligated with Hemoclips, divided between the clips. The gallbladder was removed from the liver bed using Bovie, hemostasis achieved along the way using Bovie. The gallbladder was retrieved from the peritoneal cavity in an Endopouch through the 12 mm port site. The left lobe of the liver was focused on. Epigastric incision was made. A Jefry-Cut liver biopsy was then performed. Three individual passes were made through 3 separate areas on the left lobe of the liver. Specimens were sent off. Hemostasis achieved with cautery. At this point, CO2 was released. The fascia at the 12 mm port site approximated with 0 Vicryl. All skin incisions closed with 4-0 Monocryl. The abdominal wall was cleaned and a sterile dressing placed. The patient was awakened and taken to recovery room. MD ADRIANA Husain/CAMILLA , 05:31 PM , 06:34 PM
== END | disposition home or self-care (01) ==
LOC: HSDC 05:37
PROVIDERS: ATTEND Surgery
DX: K80.20 Calculus of gallbladder without cholecystitis without obstruction (principal); K74.60 Unspecified cirrhosis of liver; E11.9 Type 2 diabetes mellitus without complications; Z79.4 Long term (current) use of insulin
CPT/HCPCS: 00790; 47001; 47562; 82948; 88304; 88307; 88313; 88342; J0131; J0690; J1170; J2250; J2270; J2370; J2405; J2710; J3010; J7120

== ENCOUNTER 2018-02-06 17:31 | Inpatient (IN) ==
[2018-02-06] MEDS ORDERED: Sod Chloride 0.9% Inj 1,000 ML IV.SIG SCH (18:15)
--- NOTE | 2018-02-06 18:19 | ED ---
HPI General Chief complaint: Weakness Stated complaint: tired Time Seen by Provider: 02/06/18 17:58 Source: patient Mode of arrival: ambulatory Limitations: no limitations History of Present Illness HPI narrative: 43yo F with PMH of DM, hypothyroidism here with c/o lightheadedness for a few days. Said it felt like room spinning and lightheaded at the same time. Said while lying down she did not have any dizziness. Said she has also been having intermittent left sided chest pain for a few days. Lasts seconds at a time, it is sharp and nonradiating. Had some nausea. Denies any fever, cough, sob, vomiting, abdominal pain, focal weakness or numbness. Related Data Home Medications Medication Instructions Recorded Confirmed clonazepam 0.5 mg PO BID 10/21/17 02/06/18 gabapentin 300 mg PO QDRHS 10/21/17 02/06/18 glipizide 10 mg PO BID 10/21/17 02/06/18 insulin degludec [Tresiba 50 unit SUB-Q DAILY 10/21/17 02/06/18 FlexTouch U-100] levothyroxine 250 mcg PO DAILY 10/21/17 02/06/18 losartan 50 mg PO DAILY 10/21/17 02/06/18 rosuvastatin 20 mg PO DAILY 10/21/17 02/06/18 triamterene-hydrochlorothiazid 1 tab PO DAILY 10/21/17 02/06/18 Allergies Allergy/AdvReac Type Severity Reaction Status Date / Time No Known Allergies Allergy Verified 02/06/18 18:07 Review of Systems ROS: all other systems reviewed are negative [facility] Social History Social History Substance History: No History of Abuse Second Hand Smoke Exposure: No Smoking Status: Never smoker How Often Do You Have a Drink Containing Alcohol: Never Recent Travel in [facility] within the Last 8 Weeks: No Recent Out of Country Travel within the Last 8 Weeks: No Immunization History Tetanus Immunization: >5 Years Exam Narrative Exam Narrative: GENERAL: 43yo F not in distress. SKIN: Focused skin assessment warm/dry. HEAD: Atraumatic. Normocephalic. EYES: Pupils equal and round at 3mm bilaterally. EOMI. ENT: No nasal bleeding or discharge. Mucous membranes pink and moist. NECK: Trachea midline. No JVD. CARDIOVASCULAR: Regular rate and rhythm. No murmur appreciated. RESPIRATORY: No accessory muscle use. Clear to auscultation. Breath sounds equal bilaterally. GASTROINTESTINAL: Abdomen soft, non-tender, nondistended. MUSCULOSKELETAL: No obvious deformities. No clubbing. No cyanosis. No edema. NEUROLOGICAL: Awake and alert. No obvious cranial nerve deficits. Motor grossly within normal limits in all extremities. Sensation intact. Normal speech. PSYCHIATRIC: Appropriate mood and affect; insight and judgment normal. Course Initial Documented Vital Signs Temperature 98.1 F 02/06/18 17:36 Pulse Rate 82 02/06/18 17:36 Respiratory Rate 16 02/06/18 17:36 Blood Pressure 114/57 L 02/06/18 17:36 Pulse Oximetry 100 02/06/18 17:36 Last Documented Vital Signs Temperature 97.1 F L 02/07/18 16:00 Pulse Rate 67 02/07/18 16:00 Respiratory Rate 16 02/07/18 16:00 Blood Pressure 117/67 02/07/18 16:00 Pulse Oximetry 96 02/07/18 16:00 Medical Decision Making [facility] Narrative Medical decision making narrative: 43yo F with dizziness for a few days. Went to urgent care and BP was low there with systolic in the 70s. BP here is 116/ 59. She does not feel dizzy while lying down. No focal neurologic deficits. Has blurry vision for a few days but she has normal vision when she wears her glasses which she left in her car. Pt also with atypical chest pain and is currently chest pain free, last chest pain was over a day ago. CXR negative. Labs reviewed, no leukocytosis. H/H low at 10.9/33.6 which is her baseline. Mild thrombocytopenia at 126,000 which is better than her baseline. Mild hyponatremia at 132. BUN/creatinine is 34/3.47 which is acutely elevated from her BUN/creatinine of 21/1.53 on 10/21/17. Glucose is 215, normal anion gap. Troponin negative. TSH normal. Discussed with Dr. Anderson and accepted to his service for [facility]. Medical Screen Exam Complete: Yes Emergency Medical Condition: Yes Differential Diagnosis Differential Diagnosis: Vertigo vs. dehydration vs hypoglycemia vs. ACS Lab Data Result diagrams: 02/07/18 06:50 02/07/18 06:50 POC Results POC Urine Results Negative Lab Results 02/06/18 02/06/18 02/06/18 Range/Units 18:00 18:00 18:20 WBC 6.9 (4.0-11.0) th/mm3 RBC 4.21 (4.00-5.30) mil/mm3 Hgb 10.9 L (11.6-15.3) gm/dL Hct 33.6 L (35.0-46.0) % MCV 79.8 L (80.0-100.0) fL MCH 25.9 L (27.0-34.0) pg MCHC 32.5 (32.0-36.0) % RDW 17.3 H (11.6-17.2) % Plt Count 126 L (150-450) th/mm3 MPV 9.2 (7.0-11.0) fL Prelim Diff (Auto) Neut % (Auto) 71.1 H (16.0-70.0) % Lymph % (Auto) 15.5 (9.0-44.0) % Becker % (Auto) 10.1 H (0.0-8.0) % Eos % (Auto) 2.3 (0.0-4.0) % Baso % (Auto) 1.0 (0.0-2.0) % Neut # (Auto) 4.9 (1.8-7.7) th/mm3 Lymph # (Auto) 1.1 (1.0-4.8) th/mm3 [place] # (Auto) 0.7 (0.0-0.9) th/mm3 Eos # (Auto) 0.2 (0.0-0.4) th/mm3 Baso # (Auto) 0.1 (0.0-0.2) th/mm3 WBC Differential . Diff Scan Differential Comment Auto diff final Platelet Estimate (Normal) Platelet Morphology (Normal) Sodium 132 L (136-145) meq/L Potassium 3.4 L (3.5-5.1) meq/L Chloride 98 (98-107) meq/L Carbon Dioxide 23.5 (21.0-32.0) meq/L Anion Gap 11 (5-15) meq/L BUN 34 H (7-18) mg/dL Creatinine 3.47 H (0.50-1.00) mg/dL Estimated GFR 14 L (>89) mL/min POC Glucose (68-110) mg/dl Random Glucose 215 H (74-106) mg/dL Calcium 9.1 (8.5-10.1) mg/dL Troponin I Less than 0.02 L (0.02-0.05) ng/mL TSH 0.475 (0.358-3.740) uIU/mL Urine Color Yellow (Yellw/Straw) Urine Clarity Hazy H (Clear) Urine pH 6.0 (5.0-8.5) Ur Specific [place] 1.008 (1.002-1.035) Urine Protein 30 H (Neg-Trace) mg/dL Urine Glucose (UA) Negative (Negative) mg/dL Urine Ketones Negative (Negative) mg/dL Urine Occult Blood Negative (Negative) Urine Nitrate Negative (Negative) Urine Bilirubin Negative (Negative) Urine Urobilinogen Less than 2 (Less than 2) mg/dL Ur Leukocyte Esterase Negative (Negative) Urine WBC 4 (0-5) /hpf Ur Squamous Epith Cells 6 (0-5) /hpf Hyaline Casts 1 (0-3) /lpf Micro UA Comment Culture not ind Ur Microscopic Review Not Reportable Urine Culture Comments Culture not ind 02/07/18 02/07/18 02/07/18 Range/Units 00:47 06:03 06:50 WBC 3.3 L D (4.0-11.0) th/mm3 RBC 3.90 L (4.00-5.30) mil/mm3 Hgb 10.4 L (11.6-15.3) gm/dL Hct 31.3 L (35.0-46.0) % MCV 80.2 (80.0-100.0) fL MCH 26.7 L (27.0-34.0) pg MCHC 33.3 (32.0-36.0) % RDW 17.3 H (11.6-17.2) % Plt Count 86 L D (150-450) th/mm3 MPV 9.8 (7.0-11.0) fL Prelim Diff (Auto) Slide review pending Neut % (Auto) 63.4 (16.0-70.0) % Lymph % (Auto) 21.4 (9.0-44.0) % [place] % (Auto) 10.3 H (0.0-8.0) % Eos % (Auto) 3.6 (0.0-4.0) % Baso % (Auto) 1.3 (0.0-2.0) % Neut # (Auto) 2.1 (1.8-7.7) th/mm3 Lymph # (Auto) 0.7 L (1.0-4.8) th/mm3 [place] # (Auto) 0.3 (0.0-0.9) th/mm3 Eos # (Auto) 0.1 (0.0-0.4) th/mm3 Baso # (Auto) 0.0 (0.0-0.2) th/mm3 WBC Differential . Diff Scan Auto diff confirmed Differential Comment . Platelet Estimate Low L (Normal) Platelet Morphology Enlarged H (Normal) Sodium (136-145) meq/L Potassium (3.5-5.1) meq/L Chloride (98-107) meq/L Carbon Dioxide (21.0-32.0) meq/L Anion Gap (5-15) meq/L BUN (7-18) mg/dL Creatinine (0.50-1.00) mg/dL Estimated GFR (>89) mL/min POC Glucose 254 H 89 (68-110) mg/dl Random Glucose (74-106) mg/dL Calcium (8.5-10.1) mg/dL Troponin I (0.02-0.05) ng/mL TSH (0.358-3.740) uIU/mL Urine Color (Yellw/Straw) Urine Clarity (Clear) Urine pH (5.0-8.5) Ur Specific [place] (1.002-1.035) Urine Protein (Neg-Trace) mg/dL Urine Glucose (UA) (Negative) mg/dL Urine Ketones (Negative) mg/dL Urine Occult Blood (Negative) Urine Nitrate (Negative) Urine Bilirubin (Negative) Urine Urobilinogen (Less than 2) mg/dL Ur Leukocyte Esterase (Negative) Urine WBC (0-5) /hpf Ur Squamous Epith Cells (0-5) /hpf Hyaline Casts (0-3) /lpf Micro UA Comment Ur Microscopic Review Urine Culture Comments 02/07/18 02/07/18 02/07/18 Range/Units 06:50 07:44 11:33 WBC (4.0-11.0) th/mm3 RBC (4.00-5.30) mil/mm3 Hgb (11.6-15.3) gm/dL Hct (35.0-46.0) % MCV (80.0-100.0) fL MCH (27.0-34.0) pg MCHC (32.0-36.0) % RDW (11.6-17.2) % Plt Count (150-450) th/mm3 MPV (7.0-11.0) fL Prelim Diff (Auto) Neut % (Auto) (16.0-70.0) % Lymph % (Auto) (9.0-44.0) % [place] % (Auto) (0.0-8.0) % Eos % (Auto) (0.0-4.0) % Baso % (Auto) (0.0-2.0) % Neut # (Auto) (1.8-7.7) th/mm3 Lymph # (Auto) (1.0-4.8) th/mm3 [place] # (Auto) (0.0-0.9) th/mm3 Eos # (Auto) (0.0-0.4) th/mm3 Baso # (Auto) (0.0-0.2) th/mm3 WBC Differential Diff Scan Differential Comment Platelet Estimate (Normal) Platelet Morphology (Normal) Sodium 139 (136-145) meq/L Potassium 3.4 L (3.5-5.1) meq/L Chloride 106 D (98-107) meq/L Carbon Dioxide 20.6 L (21.0-32.0) meq/L Anion Gap 12 (5-15) meq/L BUN 28 H (7-18) mg/dL Creatinine 2.77 H (0.50-1.00) mg/dL Estimated GFR 19 L (>89) mL/min POC Glucose 83 186 H (68-110) mg/dl Random Glucose 68 L D (74-106) mg/dL Calcium 8.9 (8.5-10.1) mg/dL Troponin I (0.02-0.05) ng/mL TSH (0.358-3.740) uIU/mL Urine Color (Yellw/Straw) Urine Clarity (Clear) Urine pH (5.0-8.5) Ur Specific [place] (1.002-1.035) Urine Protein (Neg-Trace) mg/dL Urine Glucose (UA) (Negative) mg/dL Urine Ketones (Negative) mg/dL Urine Occult Blood (Negative) Urine Nitrate (Negative) Urine Bilirubin (Negative) Urine Urobilinogen (Less than 2) mg/dL Ur Leukocyte Esterase (Negative) Urine WBC (0-5) /hpf Ur Squamous Epith Cells (0-5) /hpf Hyaline Casts (0-3) /lpf Micro UA Comment Ur Microscopic Review Urine Culture Comments 02/07/18 Range/Units 16:39 WBC (4.0-11.0) th/mm3 RBC (4.00-5.30) mil/mm3 Hgb (11.6-15.3) gm/dL Hct (35.0-46.0) % MCV (80.0-100.0) fL MCH (27.0-34.0) pg MCHC (32.0-36.0) % RDW (11.6-17.2) % Plt Count (150-450) th/mm3 MPV (7.0-11.0) fL Prelim Diff (Auto) Neut % (Auto) (16.0-70.0) % Lymph % (Auto) (9.0-44.0) % [place] % (Auto) (0.0-8.0) % Eos % (Auto) (0.0-4.0) % Baso % (Auto) (0.0-2.0) % Neut # (Auto) (1.8-7.7) th/mm3 Lymph # (Auto) (1.0-4.8) th/mm3 [place] # (Auto) (0.0-0.9) th/mm3 Eos # (Auto) (0.0-0.4) th/mm3 Baso # (Auto) (0.0-0.2) th/mm3 WBC Differential Diff Scan Differential Comment Platelet Estimate (Normal) Platelet Morphology (Normal) Sodium (136-145) meq/L Potassium (3.5-5.1) meq/L Chloride (98-107) meq/L Carbon Dioxide (21.0-32.0) meq/L Anion Gap (5-15) meq/L BUN (7-18) mg/dL Creatinine (0.50-1.00) mg/dL Estimated GFR (>89) mL/min POC Glucose 211 H (68-110) mg/dl Random Glucose (74-106) mg/dL Calcium (8.5-10.1) mg/dL Troponin I (0.02-0.05) ng/mL TSH (0.358-3.740) uIU/mL Urine Color (Yellw/Straw) Urine Clarity (Clear) Urine pH (5.0-8.5) Ur Specific [place] (1.002-1.035) Urine Protein (Neg-Trace) mg/dL Urine Glucose (UA) (Negative) mg/dL Urine Ketones (Negative) mg/dL Urine Occult Blood (Negative) Urine Nitrate (Negative) Urine Bilirubin (Negative) Urine Urobilinogen (Less than 2) mg/dL Ur Leukocyte Esterase (Negative) Urine WBC (0-5) /hpf Ur Squamous Epith Cells (0-5) /hpf Hyaline Casts (0-3) /lpf Micro UA Comment Ur Microscopic Review Urine Culture Comments Imaging Data Radiologist's impression: Chest X-Ray 02/06/18 18:11 CONCLUSION: 1. No acute cardiopulmonary disease. ECG Data EKG Prior to Arrival: No Attestation: I personally reviewed and interpreted this ECG as follows: Interpretation: NSR 84bpm. LAD. No significant ST elevation or depression. Q wave III. ST depression aVL. Discharge Plan Discharge Disposition Patient Disposition: ED Admit(ED Internal Use Only) Discharge Order Discharge Orders: ED Use Only Admit Order (Routine); Ordered 02/06/18 Ordered By: Lexis Okeefe Discharge Details Diagnosis: Acute renal failure Physicians Team ED Provider: Lexis Okeefe Primary Care Provider: Isabel Pittman Attending Provider: Damien Krueger Status ED Status: Left Department Discharge Information Discharge Date/Time: 02/06/18 22:43
[2018-02-06 18:23] LABS: Baso # (Auto) 0.1 th/mm3 (0.0-0.2); Eos # (Auto) 0.2 th/mm3 (0.0-0.4); Eos % (Auto) 2.3 % (0.0-4.0); Hematocrit 33.6 % (35.0-46.0); Hemoglobin 10.9 gm/dL (11.6-15.3); Lymph # (Auto) 1.1 th/mm3 (1.0-4.8); Lymph % (Auto) 15.5 % (9.0-44.0); Mean Corpuscular HGB Conc 32.5 % (32.0-36.0); Mean Corpuscular Hemoglobin 25.9 pg (27.0-34.0); Mean Corpuscular Volume 79.8 fL (80.0-100.0); Mean Platelet Volume 9.2 fL (7.0-11.0); Mono # (Auto) 0.7 th/mm3 (0.0-0.9); Mono % (Auto) 10.1 % (0.0-8.0); Neut # (Auto) 4.9 th/mm3 (1.8-7.7); Neut % (Auto) 71.1 % (16.0-70.0); Platelet Count 126 th/mm3 (150-450); Red Blood Count 4.21 mil/mm3 (4.00-5.30); Red Cell Distribution Width 17.3 % (11.6-17.2); White Blood Count 6.9 th/mm3 (4.0-11.0)
--- NOTE | 2018-02-06 18:41 | XR ---
EXAM DATE: 02/06/2018 6:35 PM EST AGE/SEX: 43 years / Female INDICATIONS: Chest pain 2 days ago. CLINICAL DATA: This is the patient's initial encounter. Patient reports that signs and symptoms have been present for 2 days and indicates a pain score of 0/10. MEDICAL/SURGICAL HISTORY: . Hypercholesterolemia. Hypertension. Thyroid disease SURGICAL HISTOR Y : Tubal ligation. . COMPARISON: [facility] [place], CHEST SINGLE AP, 05/05/2017. . FINDINGS: Elevation of the right hemidiaphragm. No significant focal pleural or parenchymal opacity. Cardiomedi astinal contours are within normal limits. Remainder of exam is unchanged. CONCLUSION: 1. No acute cardiopulmonary disease. Electronically signed by: Chin Palencia MD Board Certified Radiologist 02/06/2018 6:39 PM ES T
[2018-02-06 18:48] LABS: Anion Gap 11 meq/L (5-15); Blood Urea Nitrogen 34 mg/dL (7-18); Calcium 9.1 mg/dL (8.5-10.1); Carbon Dioxide 23.5 meq/L (21.0-32.0); Chloride 98 meq/L (98-107); Glomerular Filtration Rate 14 mL/min (>89); Glucose,Random 215 mg/dL (74-106); Potassium 3.4 meq/L (3.5-5.1); Sodium 132 meq/L (136-145)
[2018-02-06 18:58] LABS: Thyroid Stimulating Hormone 0.475 uIU/mL (0.358-3.740)
[2018-02-06 20:10] LABS: Bilirubin,Urine Negative (Negative); Clarity,Urine Hazy (Clear); Color,Urine Yellow (Yellw/Straw); Glucose,Urine (UA) Negative (Negative); Hyaline Casts,Urine 1 /lpf (0-3); Leukocyte Esterase,Urine Negative (Negative); Nitrite,Urine Negative (Negative); Specific Gravity,Urine 1.008 (1.002-1.035); Squamous Epithelial Cell,Urine 6 /hpf (0-5)
[2018-02-06] MEDS ORDERED: Acetaminophen 325 MG Tablet PO PRN (21:12)
[2018-02-06] MEDS: Sod Chloride 0.9% Inj 1,000 ML IV.CONT SCH (21:29)
--- NOTE | 2018-02-06 21:31 | P.HP ---
History of Present Illness Service: [facility] Primary Care Physician: Isabel Pittman DO Chief Complaint: Sent by urgent care for hypotension History of Present Illness: 43 y/o white female with history of diabetes ,hypertension,known ckd with cr approx 1.5 ,has been feeling lightheaded generalized aches nonspecific chest discomfort ,dizziness and thought her blood sugar was off. Patient went to urgent care and had labs done glucose was approx 200 but blood pressure was low . Patient sent to [place] for evaluation. In er found hypotension given fluids also cr >3 ,blood pressure remained low . Patient will start iv fluid follow up labs . Denies left sided chest pain ,nausea ,vomit . - Diagnosis (1) Acute renal failure superimposed on chronic kidney disease (2) Hypotension (3) Diabetes Inpatient Certification: I certify that the inpatient services were ordered in accordance with Medicare regulations governing the order. This includes certification that hospital inpatient services are reasonable and necessary and in the case of services not specified as inpatient-only under 42 CFR 419.22(n), that they are appropriately provided as inpatient services in accordance to with the 2-midnight benchmark under 43 CFR 412.3(e) Estimated Total Length of Stay (Days): 3 Plans for Post Hospital Care: Not yet determined Review of Systems All other systems reviewed negative except as stated in HPI PMFSH - History History Provided By: Patient - Medical History Medical History: Medical History (Last Reviewed 02/06/18 @ 21:28 by Nilo Shannon MD) Hypothyroid Diabetes Hypertension - Surgical History Surgical History: Surgical History (Last Reviewed 02/06/18 @ 21:28 by Nilo Shannon MD) Hx of cholecystectomy - Tobacco History Second Hand Smoke Exposure: No Smoking Status: Never smoker - Alcohol History How Often Do You Have a Drink Containing Alcohol: Never - Substance Use History Substance History: No History of Abuse - Travel History Recent Travel in the [place] Within the Last 8 Weeks: No Recent Travel Out of the Country Within the Last 8 Weeks: No - Immunization History Tetanus Immunization: >5 Years Medications and Allergies Active Medications: Active Medications Acetaminophen (Tylenol) 650 mg PO Q4H PRN PRN Reason: Temp > 100.4 Clonazepam (Klonopin) 0.5 mg PO BID ROSE Gabapentin (Neurontin) 300 mg PO QDRHS [facility] Glipizide (Glucotrol) 10 mg PO BID ROSE Sodium Chloride (Ns Inj) 1,000 mls @ 75 mls/hr IV.CONT .[id number] [facility] Levothyroxine Sodium (Synthroid) 250 mcg PO DAILY [facility] Losartan Potassium (Cozaar) 50 mg PO DAILY [facility] Non-Formulary Medication (Insulin Degludec [Tresiba Flextouch U-100]) 50 unit SQ DAILY [facility] Non-Formulary Medication (Rosuvastatin [Rosuvastatin]) 20 mg PO DAILY [facility] Ondansetron HCl (Zofran Inj) 4 mg IV.PUSH Q6H PRN PRN Reason: NAUSEA OR VOMITING Senna/Docusate Sodium (María-Colace) 1 tab PO BID [facility] Sennosides (Senokot) 17.2 mg PO Q12H PRN PRN Reason: Moderate Constipation Sodium Chloride (Ns Flush) 2 ml IV.FLUSH PRN PRN PRN Reason: FLUSH AFTER USING IV ACCESS Sodium Chloride (Ns Flush) 2 ml IV.FLUSH BID [facility] Sodium Chloride (Ns Flush) 2 ml IV.FLUSH PRN PRN PRN Reason: FLUSH AFTER USING IV ACCESS Allergies Allergy/AdvReac Type Severity Reaction Status Date / Time No Known Allergies Allergy Verified 02/06/18 18:07 Home Medications Medication Instructions Recorded Confirmed Type clonazepam 0.5 mg PO BID 10/21/17 02/06/18 History gabapentin 300 mg PO QDRHS 10/21/17 02/06/18 History glipizide 10 mg PO BID 10/21/17 02/06/18 History insulin degludec [Tresiba 50 unit SUB-Q DAILY 10/21/17 02/06/18 History FlexTouch U-100] levothyroxine 250 mcg PO DAILY 10/21/17 02/06/18 History losartan 50 mg PO DAILY 10/21/17 02/06/18 History rosuvastatin 20 mg PO DAILY 10/21/17 02/06/18 History triamterene-hydrochlorothiazid 1 tab PO DAILY 10/21/17 02/06/18 History Exam Vital signs: Vital Signs 02/06/18 17:36 02/06/18 18:00 02/06/18 19:33 Temperature 98.1 F Pulse Rate 82 79 76 Respiratory Rate 16 16 18 Blood Pressure 114/57 L 116/59 L 107/61 Pulse Oximetry 100 100 99 02/06/18 21:16 Temperature Pulse Rate 73 Respiratory Rate 20 Blood Pressure 114/63 Pulse Oximetry 98 Intake & Output 02/06/18 02/06/18 02/07/18 06:59 18:59 06:59 Weight 111.13 kg Narrative: GENERAL: SKIN: Warm and dry. HEAD: Normocephalic. EYES: No scleral icterus. No injection or drainage. NECK: Supple, trachea midline. No JVD or lymphadenopathy. CARDIOVASCULAR: Regular rate and rhythm without murmurs, gallops, or rubs. RESPIRATORY: Breath sounds equal bilaterally. No accessory muscle use. GASTROINTESTINAL: Abdomen soft, non-tender, nondistended. MUSCULOSKELETAL: No cyanosis, or edema. BACK: Nontender without obvious deformity. No CVA tenderness. Results - Labs CBC & Chem 7: 02/06/18 18:00 02/06/18 18:00 Labs: Laboratory Results - last 24 hr 02/06/18 02/06/18 02/06/18 18:00 18:00 18:20 WBC 6.9 RBC 4.21 Hgb 10.9 L Hct 33.6 L MCV 79.8 L MCH 25.9 L MCHC 32.5 RDW 17.3 H Plt Count 126 L MPV 9.2 Neut % (Auto) 71.1 H Lymph % (Auto) 15.5 [place] % (Auto) 10.1 H Eos % (Auto) 2.3 Baso % (Auto) 1.0 Neut # (Auto) 4.9 Lymph # (Auto) 1.1 [place] # (Auto) 0.7 Eos # (Auto) 0.2 Baso # (Auto) 0.1 WBC Differential . Differential Comment Auto diff final Sodium 132 L Potassium 3.4 L Chloride 98 Carbon Dioxide 23.5 Anion Gap 11 BUN 34 H Creatinine 3.47 H Estimated GFR 14 L Random Glucose 215 H Calcium 9.1 Troponin I Less than 0.02 L TSH 0.475 Urine Color Yellow Urine Clarity Hazy H Urine pH 6.0 Ur Specific [place] 1.008 Urine Protein 30 H Urine Glucose (UA) Negative Urine Ketones Negative Urine Occult Blood Negative Urine Nitrate Negative Urine Bilirubin Negative Urine Urobilinogen Less than 2 Ur Leukocyte Esterase Negative Urine WBC 4 Ur Squamous Epith Cells 6 Hyaline Casts 1 Micro UA Comment Culture not ind Ur Microscopic Review Not Reportable Urine Culture Comments Culture not ind - Imaging Impressions Chest X-Ray 02/06/18 18:11 CONCLUSION: 1. No acute cardiopulmonary disease. Caprini VTE Risk Assessment Caprini VTE Risk Assessment: No/Low Risk (score <= 1) Caprini Risk Assessment Model: Point Value = 1 Point Value = 2 Point Value = 3 Point Value = 5 Age 41-60 Minor surgery BMI > 25 kg/m2 Swollen legs Varicose veins or History of unexplained or recurrent spontaneous Oral contraceptives or hormone replacement Sepsis (< 1 month) Serious lung disease, including pneumonia (< 1 month) Abnormal pulmonary function Acute myocardial infarction Congestive heart failure (< 1 month) History of inflammatory bowel disease Medical patient at bed rest Age 61-74 Arthroscopic surgery Major open surgery (> 45 min) Laparoscopic surgery (> 45 min) Malignancy Confined to bed (> 72 hours) Immobilizing plaster cast Central venous access Age >= 75 History of VTE Family history of VTE Factor V Leiden Prothrombin [id number] Lupus anticoagulant Anticardiolipin antibodies Elevated serum homocysteine Heparin-induced thrombocytopenia Other congenital or acquired thrombophilia Stroke (< 1 month) Elective arthroplasty Hip, pelvis, or leg fracture Acute spinal cord injury (< 1 month) Prophylaxis Regimen: Total Risk Factor Score Risk Level Prophylaxis Regimen 0-1 Low Early ambulation 2 Moderate Order ONE of the following: *Sequential Compression Device (SCD) *Heparin 5000 units SQ BID 3-4 Higher Order ONE of the following medications: *Heparin 5000 units SQ TID *Enoxaparin/Lovenox 40 mg SQ daily (WT < 150 kg, CrCl > 30 mL/min) *Enoxaparin/Lovenox 30 mg SQ daily (WT < 150 kg, CrCl > 10-29 mL/min) *Enoxaparin/Lovenox 30 mg SQ BID (WT < 150 kg, CrCl > 30 mL/min) AND/OR *Sequential Compression Device (SCD) 5 or more Highest Order ONE of the following medications: *Heparin 5000 units SQ TID (Preferred with Epidurals) *Enoxaparin/Lovenox 40 mg SQ daily (WT < 150 kg, CrCl > 30 mL/min) *Enoxaparin/Lovenox 30 mg SQ daily (WT < 150 kg, CrCl > 10-29 mL/min) *Enoxaparin/Lovenox 30 mg SQ BID (WT < 150 kg, CrCl > 30 mL/min) AND *Sequential Compression Device (SCD) Assessment and Plan - Assessment (1) Acute renal failure superimposed on chronic kidney disease Code(s): N17.9 - Acute kidney failure, unspecified; N18.9 - Chronic kidney disease, unspecified Status: Acute Plan: hydrate follow up labs in am further work up depending on lab work (2) Hypotension Code(s): I95.9 - Hypotension, unspecified Status: Acute Plan: patient normally takes diuretic and losartan 50 will hold diuretic and put parameters on losartan (3) Diabetes Code(s): E11.9 - Type 2 diabetes mellitus without complications Status: Acute Plan: continue home medications - Plan further plan pending repeat labs Code Status: full Discussed Condition With: patient
[2018-02-06] MEDS: Gabapentin 300 MG Capsule PO SCH (21:56)
[2018-02-07] MEDS ORDERED: Dextrose 50% in Water 50 ML Vial IV.PUSH PRN (01:10)
[2018-02-07] MEDS: Insulin NovoLOG Aspart Correctional Sugar Inj SQ SCH ×3 (06:04→17:50)
[2018-02-07] MEDS: Levothyroxine 50 MCG Tablet PO SCH (06:04)
[2018-02-07] MEDS ORDERED: [UNRECOGNIZED DRUG - OTHER] SQ SCH (09:00)
[2018-02-07] MEDS ORDERED: INSULIN DEGLUDEC SQ SCH (09:00)
[2018-02-07 09:04] LABS: Baso % (Auto) 1.3 % (0.0-2.0); Eos # (Auto) 0.1 th/mm3 (0.0-0.4); Eos % (Auto) 3.6 % (0.0-4.0); Hematocrit 31.3 % (35.0-46.0); Hemoglobin 10.4 gm/dL (11.6-15.3); Lymph # (Auto) 0.7 th/mm3 (1.0-4.8); Lymph % (Auto) 21.4 % (9.0-44.0); Mean Corpuscular HGB Conc 33.3 % (32.0-36.0); Mean Corpuscular Hemoglobin 26.7 pg (27.0-34.0); Mean Corpuscular Volume 80.2 fL (80.0-100.0); Mean Platelet Volume 9.8 fL (7.0-11.0); Mono # (Auto) 0.3 th/mm3 (0.0-0.9); Mono % (Auto) 10.3 % (0.0-8.0); Neut # (Auto) 2.1 th/mm3 (1.8-7.7); Neut % (Auto) 63.4 % (16.0-70.0); Platelet Count 86 th/mm3 (150-450); Red Cell Distribution Width 17.3 % (11.6-17.2); White Blood Count 3.3 th/mm3 (4.0-11.0)
[2018-02-07] MEDS: clonazePAM 0.5 MG Tablet PO SCH ×2 (09:29→20:57)
[2018-02-07] MEDS: Senna/Docusate Sodium 8.6/50 MG Tablet PO SCH ×2 (09:29→20:58)
[2018-02-07] MEDS: glipiZIDE 10 MG Tablet PO SCH ×2 (09:29→20:57)
[2018-02-07 09:42] LABS: Calcium 8.9 mg/dL (8.5-10.1); Carbon Dioxide 20.6 meq/L (21.0-32.0); Potassium 3.4 meq/L (3.5-5.1)
--- NOTE | 2018-02-07 10:51 | P.PNIM ---
Subjective Interval history: Pt feeling slightly better this morning. The dizziness has improved She is urinating without difficulty Pt reports that she had recently had an abscess on her lower abdomen I&D'd and was placed on Bactrim DS x 10 days. She took the last pill yesterday. She states that she had been eating and drinking normally prior to this admission. Physical Exam Vital signs: Last Vital Signs Temp 97.7 F 02/07/18 08:00 Pulse 70 02/07/18 08:00 Resp 17 02/07/18 08:00 BP 123/69 02/07/18 08:00 Pulse Ox 100 02/07/18 08:00 Narrative: General: NAD, AAOx3 Chest: CTA Cardiac: Regular Abd: +BS, soft ND/NT, open wound in the left lower abdomen with some bloody drainage, no erythema of the surrounding skin. Ext: No edema Results Labs CBC & Chem 7: 02/09/18 09:11 02/09/18 09:11 Imaging Chest X-Ray 02/06/18 18:11 CONCLUSION: 1. No acute cardiopulmonary disease. Assessment and Plan Assessment (1) Acute renal failure superimposed on chronic kidney disease: Code(s): N17.9 - Acute kidney failure, unspecified; N18.9 - Chronic kidney disease, unspecified Status: Acute (2) Hypotension: Code(s): I95.9 - Hypotension, unspecified Status: Acute (3) Diabetes: Code(s): E11.9 - Type 2 diabetes mellitus without complications Status: Acute Plan MARIA DEL ROSARIO superimposed on CKD, stage 2 Recent Bactrim use - Pt is a 43 y/o female with diabetes, hypertension, CKD stage 2 with baseline Cr around 1. - Pt presented to the ED at [facility] [place] on 02/06/18 with complaints of feeling lightheaded and dizzy especially when standing up. Patient went to urgent care and had labs done glucose was approx 200 but blood pressure was low with systolic in the 70-80's. - In the ED her BP was low in the 100-110's and she was given IVF - Labs also revealed MARIA DEL ROSARIO with Cr 3.47. - This may be due to recent antibiotic use with Bactrim for an abscess in the left lower abdomen. Pt had been eating and drinking normally prior to this admission and no other medication changes. She does also take Triamterne/HCTZ at home normally. - Her repeat labs on 02/07 with improvement in Cr to 2.77. - Cont. IVF - Repeat labs in AM Abdominal wall abscess s/p I&D on 01/28/18 with culture growing MSSA - Pt was treated with Bactrim BID x 10 days, completed yesterday - Wound still with some drainage but the pt feels that it has been improving. - NO erythema around the wound - Clean daily with soap and water and change dressing daily - Apply Bactroban 2% BID HTN Hypotension - Pts normally on Losartan 50mg daily, Triamterene/HCTZ 75/50 - The diuretic is held - Pts Losartan was continued at admission with parameters, we will hold this for now. - Clonidine PRN - Monitor Diabetes Mellitus, poorly controlled - Pts lat Hgb A1C is 10% in 12/2017 - Pt takes Glipizide 10mg BID and Tresiba 50 units daily at home - Pt is on NovoLog SSI, Tresiba 50 units daily and Glipizide 10mg BID here - Accu checks Hypothyroidism - Cont. home meds Hyperlipidemia - Cont. home meds Attending Attestation Patient examined. Assessment and plan formulated with Rachel Pinto PA-C. I agree with the above. maria del rosario. probably related to bactrim improving. cont ivf. recheck in AM topical abx over lower abd i/d site. possible dc home tomorrow. Progress Note: Quality VTE Deep Vein Thrombosis/Pulmonary Embolism Present on Admission: No _ (1) Diabetes Qualifiers: Chronic kidney disease stage: Diabetes mellitus complication detail: Diabetes mellitus complication status: Diabetes mellitus senior living insulin use : Diabetes mellitus macular edema: Diabetes mellitus type: Diabetic retinopathy severity: Laterality: Proliferative retinopathy type: (2) Acute renal failure superimposed on chronic kidney disease Qualifiers: Acute renal failure type: Chronic kidney disease stage: (3) Hypotension Qualifiers: Hypotension type: Trimester:
[2018-02-07] MEDS: Sod Chloride 0.9% Inj 1,000 ML IV.CONT SCH (13:45)
[2018-02-07] MEDS: INSULIN DEGLUDEC SQ SCH (16:40)
[2018-02-07] MEDS: [UNRECOGNIZED DRUG - OTHER] SQ SCH (16:40)
--- NOTE | 2018-02-07 18:25 | ECG ---
Date Performed: 02/06/2018 Time Performed: 18:03:43 PTAGE: 43 years EKG: Sinus rhythm POSSIBLE ANTERIOR MYOCARDIAL INFARCTION ABNORMAL ECG INTERPRETATION BASED ON A DEFAULT AGE OF 39 GLADYS CORDOVA NO PREVIOUS TRACING DOCTOR: Seymour Rueda Interpretating Date/Time 02/07/2018 18:25:15
[2018-02-07] MEDS: Gabapentin 300 MG Capsule PO SCH (20:58)
[2018-02-08] MEDS: Insulin NovoLOG Aspart Correctional Sugar Inj SQ SCH ×5 (00:06→23:36)
[2018-02-08] MEDS: Sod Chloride 0.9% Inj 1,000 ML IV.CONT SCH ×2 (03:44→17:17)
[2018-02-08] MEDS: Levothyroxine 50 MCG Tablet PO SCH (05:59)
[2018-02-08 08:21] LABS: Calcium 8.4 mg/dL (8.5-10.1); Carbon Dioxide 22.2 meq/L (21.0-32.0); Magnesium 1.8 mg/dL (1.5-2.5); Potassium 3.8 meq/L (3.5-5.1)
[2018-02-08] MEDS: INSULIN DEGLUDEC SQ SCH (08:51)
[2018-02-08] MEDS: [UNRECOGNIZED DRUG - OTHER] SQ SCH (08:51)
[2018-02-08] MEDS: glipiZIDE 10 MG Tablet PO SCH ×2 (08:52→20:56)
[2018-02-08] MEDS: clonazePAM 0.5 MG Tablet PO SCH ×2 (08:52→20:56)
[2018-02-08] MEDS: Senna/Docusate Sodium 8.6/50 MG Tablet PO SCH ×2 (08:52→20:56)
--- NOTE | 2018-02-08 09:27 | P.PNIM ---
Subjective Interval history: Pts dizziness has resolved. She is ambulating without difficulty She is urinating without difficulty Pt is eating and drinking well Physical Exam Vital signs: Last Vital Signs Temp 98.1 F 02/08/18 08:00 Pulse 74 02/08/18 08:00 Resp 16 02/08/18 08:00 BP 112/58 L 02/08/18 08:00 Pulse Ox 97 02/08/18 08:00 Narrative: General: NAD, AAOx3 Chest: CTA Cardiac: Regular Abd: +BS, soft ND/NT, open wound in the left lower abdomen with some bloody drainage, no erythema of the surrounding skin. Ext: No edema Results Labs CBC & Chem 7: 02/09/18 09:11 02/09/18 09:11 Imaging Chest X-Ray 02/06/18 18:11 CONCLUSION: 1. No acute cardiopulmonary disease. Assessment and Plan Assessment (1) Acute renal failure superimposed on chronic kidney disease: Code(s): N17.9 - Acute kidney failure, unspecified; N18.9 - Chronic kidney disease, unspecified Status: Acute (2) Hypotension: Code(s): I95.9 - Hypotension, unspecified Status: Acute (3) Diabetes: Code(s): E11.9 - Type 2 diabetes mellitus without complications Status: Acute Plan MARIA DEL ROSARIO superimposed on CKD, stage 2 Recent Bactrim use - Pt is a 43 y/o female with diabetes, hypertension, CKD stage 2 with baseline Cr around 1. - Pt presented to the ED at [facility] [place] on 02/06/18 with complaints of feeling lightheaded and dizzy especially when standing up. Patient went to urgent care and had labs done glucose was approx 200 but blood pressure was low with systolic in the 70-80's. - In the ED her BP was low in the 100-110's and she was given IVF - Labs also revealed MARIA DEL ROSARIO with Cr 3.47. - This may be due to recent antibiotic use with Bactrim for an abscess in the left lower abdomen. Pt had been eating and drinking normally prior to this admission and no other medication changes. She does also take Triamterne/HCTZ at home normally. - Her repeat labs with improvement in Cr 2.77 (02/07) --> 2.27 (02/08). - Cont. IVF - Repeat labs in AM Abdominal wall abscess s/p I&D on 01/28/18 with culture growing MSSA - Pt was treated with Bactrim BID x 10 days, completed yesterday - Wound still with some drainage but the pt feels that it has been improving. - NO erythema around the wound - Clean daily with soap and water and change dressing daily - Apply Bactroban 2% BID HTN Hypotension - Pts normally on Losartan 50mg daily, Triamterene/HCTZ 75/50 - The diuretic is held - Pts Losartan was continued at admission with parameters, we will hold this for now. - Clonidine PRN - Monitor Diabetes Mellitus, poorly controlled - Pts lat Hgb A1C is 10% in 12/2017 - Pt takes Glipizide 10mg BID and Tresiba 50 units daily at home - Pt is on NovoLog SSI, Tresiba 50 units daily and Glipizide 10mg BID here. Her BS are fluctuating quite a bit but over the last 24 hours have been more consistently elevated. - Stop her Tresiba and add on Levemir 15 units BID and monitor - Accu checks Hypothyroidism - Cont. home meds Hyperlipidemia - Cont. home meds Attending Attestation Patient examined. Assessment and plan formulated with Rachel Pinto PA-C. I agree with the above. maria del rosario felt related to bactrim. improving. cr now 2.2....cont ivf and likely dc tomorrow. pt will go home on higher tresiba dose. will do levemir here for basal. 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
[2018-02-08] MEDS ORDERED: Insulin Detemir Inj 1,000 UNIT/10 ML Vial SQ SCH (09:30)
[2018-02-08] MEDS: Insulin Detemir Inj 1,000 UNIT/10 ML Vial SQ SCH (20:56)
[2018-02-08] MEDS: Gabapentin 300 MG Capsule PO SCH (20:56)
[2018-02-09] MEDS: Sod Chloride 0.9% Inj 1,000 ML IV.CONT SCH (02:21)
[2018-02-09] MEDS: Levothyroxine 50 MCG Tablet PO SCH (05:56)
[2018-02-09] MEDS: Insulin NovoLOG Aspart Correctional Sugar Inj SQ SCH ×2 (05:57→12:32)
[2018-02-09] MEDS: clonazePAM 0.5 MG Tablet PO SCH (08:23)
[2018-02-09] MEDS: Senna/Docusate Sodium 8.6/50 MG Tablet PO SCH (08:24)
[2018-02-09] MEDS: glipiZIDE 10 MG Tablet PO SCH (08:24)
[2018-02-09] MEDS: Insulin Detemir Inj 1,000 UNIT/10 ML Vial SQ SCH (08:24)
--- NOTE | 2018-02-09 08:36 | P.PNIM ---
Subjective Interval history: Pt is overall feeling better today Labs have not been drawn yet this morning. Pt is urinating without difficulty She is eating and drinking well. Physical Exam Vital signs: Last Vital Signs Temp 97.7 F 02/09/18 07:57 Pulse 70 02/09/18 07:57 Resp 18 02/09/18 07:57 BP 127/60 02/09/18 07:57 Pulse Ox 98 02/09/18 07:57 Narrative: General: NAD, AAOx3 Chest: CTA Cardiac: Regular Abd: +BS, soft ND/NT, open wound in the left lower abdomen, no drainage or erythema of the surrounding skin. Ext: No edema Results Labs CBC & Chem 7: 02/07/18 06:50 02/08/18 06:00 Imaging Chest X-Ray 02/06/18 18:11 CONCLUSION: 1. No acute cardiopulmonary disease. Assessment and Plan Assessment (1) Acute renal failure superimposed on chronic kidney disease: Code(s): N17.9 - Acute kidney failure, unspecified; N18.9 - Chronic kidney disease, unspecified Status: Acute (2) Hypotension: Code(s): I95.9 - Hypotension, unspecified Status: Acute (3) Diabetes: Code(s): E11.9 - Type 2 diabetes mellitus without complications Status: Acute Plan MARIA DEL ROSARIO superimposed on CKD, stage 2 Recent Bactrim use - Pt is a 43 y/o female with diabetes, hypertension, CKD stage 2 with baseline Cr around 1. - [place] [facility] [place] with complaints of feeling lightheaded and dizzy especially when standing up. Patient went to urgent care and had labs done glucose was approx 200 but blood pressure was low with systolic in the 70-80's. - In the ED her BP was low in the 100-110's and she was given IVF - Labs also revealed MAIRA DEL ROSARIO with Cr 3.47. - This may be due to recent antibiotic use with Bactrim for an abscess in the left lower abdomen. Pt had been eating and drinking normally prior to this admission and no other medication changes. She does also take Triamterne/HCTZ at home normally. - Her repeat labs with improvement in Cr 2.77 (02/07) --> 2.27 (02/08). - Cont. IVF - waiting repeat labs in AM, if continued improvement anticipate d/c to home this afternoon - She will need followup with her PCP, Dr. Pittman, in 1 week with repeat blood work. Abdominal wall abscess s/p I&D on 01/28/18 with culture growing MSSA - Pt was treated with Bactrim BID x 10 days, completed the day prior to admission. - Wound still with some drainage but the pt feels that it has been improving. - NO erythema around the wound - Clean daily with soap and water and change dressing daily - Apply Bactroban 2% BID HTN Hypotension - Pts normally on Losartan 50mg daily, Triamterene/HCTZ 75/50 - BP meds have been held. Her BP is low normal. - Clonidine PRN - Monitor Diabetes Mellitus, poorly controlled - Pts lat Hgb A1C is 10% in 12/2017 - Pt takes Glipizide 10mg BID and Tresiba 50 units daily at home - Pt is on NovoLog SSI, Tresiba 50 units daily and Glipizide 10mg BID here. Her BS are fluctuating quite a bit but over the last 24 hours have been more consistently elevated. - Tresiba stopped on 02/08 and pt started on Levemir 15 units BID, BS seem to be slightly more stable but still elevated. - She had been planned to followup with her PCP to adjust her BS regimen prior to this admission. - Accu checks Hypothyroidism - Cont. home meds Hyperlipidemia - Cont. 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
[2018-02-09] MEDS ORDERED: TRESIBA SQ SCH (09:00)
[2018-02-09 09:21] LABS: Baso % (Auto) 0.8 % (0.0-2.0); Eos # (Auto) 0.1 th/mm3 (0.0-0.4); Eos % (Auto) 2.8 % (0.0-4.0); Hematocrit 32.4 % (35.0-46.0); Hemoglobin 10.5 gm/dL (11.6-15.3); Lymph # (Auto) 0.5 th/mm3 (1.0-4.8); Mean Corpuscular HGB Conc 32.6 % (32.0-36.0); Mean Corpuscular Hemoglobin 26.2 pg (27.0-34.0); Mean Corpuscular Volume 80.5 fL (80.0-100.0); Mean Platelet Volume 8.3 fL (7.0-11.0); Mono # (Auto) 0.2 th/mm3 (0.0-0.9); Mono % (Auto) 7.2 % (0.0-8.0); Neut # (Auto) 2.3 th/mm3 (1.8-7.7); Neut % (Auto) 72.2 % (16.0-70.0); Platelet Count 65 th/mm3 (150-450); Red Blood Count 4.02 mil/mm3 (4.00-5.30); Red Cell Distribution Width 17.4 % (11.6-17.2); White Blood Count 3.1 th/mm3 (4.0-11.0)
[2018-02-09 09:37] LABS: Calcium 8.6 mg/dL (8.5-10.1); Carbon Dioxide 22.2 meq/L (21.0-32.0); Magnesium 1.6 mg/dL (1.5-2.5); Potassium 3.5 meq/L (3.5-5.1)
--- NOTE | 2018-02-09 10:45 | P.DS ---
DS: Providers Date of admission: 02/06/18 19:47 Primary care physician: Isabel Pittman DO Brief History from admission: 43 y/o white female with history of diabetes ,hypertension,known ckd with cr approx 1.5 ,has been feeling lightheaded generalized aches nonspecific chest discomfort ,dizziness and thought her blood sugar was off. Patient went to urgent care and had labs done glucose was approx 200 but blood pressure was low . Patient sent to [place] for evaluation. In er found hypotension given fluids also cr >3 ,blood pressure remained low . Patient will start iv fluid follow up labs . Denies left sided chest pain ,nausea ,vomit . DS: Diagnosis Discharge Diagnosis (1) Acute renal failure superimposed on chronic kidney disease: Status: Acute (2) Hypotension: Status: Acute (3) Diabetes: Status: Acute DS: Summary MARIA DEL ROSARIO superimposed on CKD, stage 2 Recent Bactrim use - Pt is a 43 y/o female with diabetes, hypertension, CKD stage 2 with baseline Cr around 1. Pt presented to the ED at [facility] [place] on 02/06/18 with complaints of feeling lightheaded and dizzy especially when standing up. Patient went to urgent care and had labs done glucose was approx 200 but blood pressure was low with systolic in the 70-80's. In the ED her BP was low in the 100-110's and she was given IVF. Labs also revealed MARIA DEL ROSARIO with Cr 3.47. This may be due to recent antibiotic use with Bactrim for an abscess in the left lower abdomen. Pt had been eating and drinking normally prior to this admission and no other medication changes. She does also take Triamterne/HCTZ at home normally as well as Losartan. Pt was continued on IVF and her repeat labs with improvement in Cr 2.77 (02/07) --> 2.27 (02/08) --> 1.75 (02/09). Pt had clinical improvement in her dizziness and was ambulating without difficulty in the hallways. She will need followup with her PCP, Dr. Pittman, in 1 week with repeat blood work. Abdominal wall abscess s/p I&D on 01/28/18 with culture growing MSSA - Pt was treated with Bactrim BID x 10 days, completed the day prior to admission. Wound has been improving. NO erythema around the wound and no drainage. Pt recommended to clean daily with soap and water and change dressing daily and apply Bactroban 2% BID x 10 days. This will need to be re-evaluated at her followup appt with her PCP. HTN Hypotension - Pts normally on Losartan 50mg daily, Triamterene/HCTZ 75/50. BP meds have been held. Her BP is low normal so we will hold her home BP meds at discharge. Pt was instructed to monitor her BP at home and keep a record of it for her PCP. She may need the medications resumed following this admission but that will need to be decided between her and her PCP. Diabetes Mellitus, poorly controlled - Pts lat Hgb A1C is 10% in 12/2017. Pt takes Glipizide 10mg BID and Tresiba 50 units daily at home. Pt was on NovoLog SSI, Tresiba 50 units daily and Glipizide 10mg BID here. Her BS are fluctuating quite a bit so the Tresiba was stopped on 02/08 and pt started on Levemir 15 units BID, BS seem to be slightly more stable but still elevated. She had been planned to followup with her PCP to adjust her BS regimen prior to this admission. We will increase her Tresiba to 60 units daily at discharge and she was given a new prescription for this. Furhter adjustments will be made by her PCP. Hypothyroidism - Cont. home meds Hyperlipidemia - Cont. home meds Time Spent with Patient Total time spent providing and/or coordinating discharge services: Quality: VTE Deep Vein Thrombosis/Pulmonary Embolism Present on Admission: No Results Labs on day of discharge: Labs from last 24 hours 02/09/18 02/09/18 02/09/18 09:11 09:11 05:56 WBC 3.1 L RBC 4.02 Hgb 10.5 L Hct 32.4 L MCV 80.5 MCH 26.2 L MCHC 32.6 RDW 17.4 H Plt Count 65 L MPV 8.3 Prelim Diff (Auto) Slide review pending Neut % (Auto) 72.2 H Lymph % (Auto) 17.0 [place] % (Auto) 7.2 Eos % (Auto) 2.8 Baso % (Auto) 0.8 Neut # (Auto) 2.3 Lymph # (Auto) 0.5 L [place] # (Auto) 0.2 Eos # (Auto) 0.1 Baso # (Auto) 0.0 WBC Differential . Diff Scan Auto diff confirmed Differential Comment . Sodium 137 Potassium 3.5 Chloride 105 Carbon Dioxide 22.2 Anion Gap 10 BUN 18 Creatinine 1.75 H Estimated GFR 32 L POC Glucose 182 H Random Glucose 141 H Calcium 8.6 Magnesium 1.6 02/08/18 02/08/18 02/08/18 23:35 17:05 11:25 WBC RBC Hgb Hct MCV MCH MCHC RDW Plt Count MPV Prelim Diff (Auto) Neut % (Auto) Lymph % (Auto) [place] % (Auto) Eos % (Auto) Baso % (Auto) Neut # (Auto) Lymph # (Auto) [place] # (Auto) Eos # (Auto) Baso # (Auto) WBC Differential Diff Scan Differential Comment Sodium Potassium Chloride Carbon Dioxide Anion Gap BUN Creatinine Estimated GFR POC Glucose 270 H 274 H 218 H Random Glucose Calcium Magnesium Impressions ITS Impressions Chest X-Ray 02/06/18 18:11 CONCLUSION: 1. No acute cardiopulmonary disease. Discharge Plan Discharge Disposition Patient Disposition: Discharge Home Discharge Condition Condition: Stable Discharge Order Discharge Orders: Discharge Order (Routine); Ordered 02/09/18 Ordered By: Rachel Pinto Discharge Details Anticipated Discharge Date: 02/09/18 Discharge Comment: Followup with Dr. Pittman in 1 week, call for that appt. Patient will need repeat labs prior to her followup appt with Dr. Pittman. Physicians Team Primary Care Provider: Isabel Pittman Attending Provider: Damien Krueger Rxs /Orders / Referrals /Forms Prescriptions: New mupirocin 2 % Ointment 1 applicatio Topical BID Qty: 1 RF: 0 insulin degludec [Tresiba FlexTouch U-100] 100 unit/mL (3 mL) insulin pen 60 unit SQ Q24H Qty: 15 RF: 0 Continue gabapentin 300 mg Capsule 300 mg PO QDRHS RF: 0 glipizide 10 mg Tablet 10 mg PO BID RF: 0 clonazepam 0.5 mg Tablet 0.5 mg PO BID RF: 0 levothyroxine 50 mcg Tablet 250 mcg PO DAILY RF: 0 rosuvastatin 20 mg Tablet 20 mg PO DAILY RF: 0 Discontinued triamterene-hydrochlorothiazid 75-50 mg Tablet 1 tab PO DAILY RF: 0 losartan 50 mg Tablet 50 mg PO DAILY RF: 0 insulin degludec [Tresiba FlexTouch U-100] 100 unit/mL (3 mL) Insulin Pen 50 unit SUB-Q DAILY RF: 0 Ambulatory Orders / Order Sets / DME: Basic Metabolic Panel (Routine) Timeframe: 1 Week Location: Determined by Patient Ordered By: Rachel Pinto Referrals: Isabel Pittman DO [Primary Care Provider] - See Instructions (1 week follow up. ) Status ED Status: Left Department
== END 2018-02-09 14:05 | disposition home or self-care (01) | DRG 683 ==
LOC: NEPD 17:31 → NEDA 19:47 → N07 22:30
PROVIDERS: ADMIT Hospitalist; ATTEND Hospitalist
DX: I95.9 Hypotension, unspecified; N18.2 Chronic kidney disease, stage 2 (mild); E78.5 Hyperlipidemia, unspecified; R07.89 Other chest pain; E11.22 Type 2 diabetes mellitus with diabetic chronic kidney disease; B95.61 Methicillin susceptible Staphylococcus aureus infection as the cause of diseases classified elsewhere; L02.211 Cutaneous abscess of abdominal wall; I12.9 Hypertensive chronic kidney disease with stage 1 through stage 4 chronic kidney disease, or unspecified chronic kidney disease; E11.65 Type 2 diabetes mellitus with hyperglycemia; E11.3599 Type 2 diabetes mellitus with proliferative diabetic retinopathy without macular edema, unspecified eye; E03.9 Hypothyroidism, unspecified; N17.9 Acute kidney failure, unspecified; N18.9 Chronic kidney disease, unspecified; D69.6 Thrombocytopenia, unspecified; Z79.4 Long term (current) use of insulin
CPT/HCPCS: 71010; 71045; 80048; 81001; 82948; 82962; 83735; 84443; 84484; 84703; 85025; 90760; 93005; 96360; 99285; J1815; J7030